=== PATIENT | male | born 1940 | race American Indian/Alaskan Native ===

== ENCOUNTER 2017-10-11 14:28 | Inpatient (IN) | payer MEDICARE, BC ==
[2017-10-11 16:14] LABS: BASO # 0.1 K/uL (0.0-0.2); BASO % 1.2 % (0.0-2.0); EOS # 0.2 K/uL (0.0-0.7); HEMOGLOBIN 9.3 g/dL (12.0-18.0); LYMPH # 1.1 K/uL (1.0-4.3); LYMPH % 14.1 % (20.0-40.0); MEAN CELL VOLUME 82.1 fL (80.0-94.0); MEAN CORPUSCULAR HEMOGLOBIN 27.1 pg (27.0-31.0); MEAN PLATELET VOLUME 7.6 fL (7.2-11.7); MONO # 0.6 K/uL (0.0-0.8); MONO % 7.5 % (0.0-10.0); NEUT # 6.1 K/uL (1.8-7.0); NEUT % 74.2 % (50.0-75.0); RBC 3.42 Mil/uL (4.40-5.90); RED CELL DISTRIBUTION WIDTH 13.7 % (11.5-14.5); WHITE BLOOD COUNT 8.2 K/uL (4.8-10.8)
[2017-10-11 16:25] LABS: ALB/GLOB RATIO 0.8 (1.0-2.1); ALBUMIN 3.4 g/dL (3.5-5.0); CALCIUM 8.4 mg/dl (8.6-10.4)
[2017-10-11] MEDS ORDERED: (Novolin R) Insulin Human Regular 100 units/ml vial IV ONE (16:27)
[2017-10-11] MEDS ORDERED: Aspirin 325 mg EC Tablets PO STA (16:31)
--- NOTE | 2017-10-11 16:33 | RAD ---
PROCEDURE: CHEST RADIOGRAPH, 1 VIEW HISTORY: Shortness of breath COMPARISON: 07/17/2017. FINDINGS: LUNGS: The lungs are well inflated. There is confluent airspace disease in the right lower lobe. PLEURA: No pneumothorax. Small pleural effusions, larger on the right. CARDIOVASCULAR: There is mild cardiomegaly. There is mild pulmonary venous congestion OSSEOUS STRUCTURES: No significant abnormalities. VISUALIZED UPPER ABDOMEN: Normal. OTHER FINDINGS: None. IMPRESSION: Findings may represent right lower lobe pneumonia and small right pleural effusion. Background of mild congestive heart failure.
--- NOTE | 2017-10-11 16:37 | C.PDOC ---
History Of Present Illness 77 y/o male, w/PMhx of Diabetes and HTN, presents to the ER complaining of SOB which has become progressively worse. Patient states that the SOB has progressed so much that he has to shuffle his feet to walk now. Patient denies having other complaints at this time. Time Seen by Provider: 10/11/17 15:32 Chief Complaint (Nursing): Shortness Of Breath History Per: Patient History/Exam Limitations: no limitations Onset/Duration Of Symptoms: Days Current Symptoms Are (Timing): Still Present Severity: Moderate Past Medical History Reviewed: Historical Data, Nursing Documentation, Vital Signs Vital Signs: Last Vital Signs Temp 98.0 F 10/11/17 14:39 Pulse 55 L 10/11/17 20:02 Resp 20 10/11/17 20:02 BP 162/89 H 10/11/17 20:02 Pulse Ox 96 10/11/17 20:02 - Medical History PMH: CHF, HTN, Hypercholesterolemia Surgical History: No Surg Hx - [facility] Procedures ENDOSC POLYPECTOMY OF LG INTEST (02/15/99) ESOPHAGOGASTRODUODENOSCOPY [EGD] W/CLOSED BIOPSY (02/15/99) Family History: States: No Known Family Hx - Social History Hx Alcohol Use: No Hx Substance Use: No - Immunization History Hx Tetanus Toxoid Vaccination: No Hx Influenza Vaccination: No Hx Pneumococcal Vaccination: No Review Of Systems Except As Marked, All Systems Reviewed And Found Negative. Constitutional: Negative for: Fever, Chills Respiratory: Positive for: Shortness of Breath Physical Exam - Physical Exam Appears: Non-toxic, No Acute Distress Skin: Normal Color, Warm, Dry Head: Atraumatic, Normacephalic Eye(s): bilateral: Normal Inspection Nose: Normal Oral Mucosa: Moist Neck: Supple Chest: Symmetrical Cardiovascular: Rhythm Regular Respiratory: Decreased Breath Sounds (bilaterally), No Rales, No Rhonchi, No Wheezing Gastrointestinal/Abdominal: Normal Exam, Bowel Sounds ((+) bowel sounds), Soft, No Tenderness, No Guarding, No Rebound Extremity: Normal ROM, Other (+3 lower extremity edema) Neurological/Psych: Oriented x3, Normal Speech ED Course And Treatment - Laboratory Results Result Diagrams: 10/11/17 16:10 10/11/17 16:10 ECG: Interpreted By Me, Viewed By Me ECG Rhythm: Atrial Fibrillation (rate control) Interpretation Of ECG: Atrial Fibrillation with non-specific T -wave changes, normal intervals, and normal axises Rate From EC O2 Sat by Pulse Oximetry: 100 (RA) Pulse Ox Interpretation: Normal - Other Rad CXR X-Ray: Viewed By Me, Read By Radiologist Interpretation: PROCEDURE: CHEST RADIOGRAPH, 1 VIEW. HISTORY: Shortness of breath. COMPARISON: 07/17/2017. FINDINGS: LUNGS: The lungs are well inflated. There is confluent airspace disease in the right lower lobe. PLEURA : No pneumothorax. Small pleural effusions, larger on the right. CARDIOVASCULAR: There is mild cardiomegaly. There is mild pulmonary venous congestion. OSSEOUS STRUCTURES: No significant abnormalities. VISUALIZED UPPER ABDOMEN: Normal. OTHER FINDINGS: None. IMPRESSION: Findings may represent right lower lobe pneumonia and small right pleural effusion. Background of mild congestive heart failure. Medical Decision Making Medical Decision Making: Assessment: SOB Plan: --Labs --ECG --CXR --Aspirin PO --Lasix IV --Insulin IV Disposition Discussed With Dr.: Scooter Romero Doctor Will See Patient In The: Hospital Counseled Patient/Family Regarding: Studies Performed, Diagnosis - Disposition Disposition: HOSPITALIZED Disposition Time: 16:37 Condition: FAIR - Clinical Impression Clinical Impression: CHF (congestive heart failure) - Scribe Statement The provider has reviewed the documentation as recorded by the Gersonibdung Diaz Provider Attestation: All medical record entries made by the Scribe were at my direction and personally dictated by me. I have reviewed the chart and agree that the record accurately reflects my personal performance of the history, physical exam, medical decision making, and the department course for this patient. I have also personally directed, reviewed, and agree with the discharge instructions and disposition.
[2017-10-11 16:39] LABS: TROPONIN I 0.035 ng/mL (0.00-0.120)
[2017-10-11] MEDS ORDERED: (Novolin R) Insulin Human Regular 100 units/ml vial ONE (16:42)
[2017-10-11] MEDS ORDERED: Aspirin 325 mg EC Tablets PO ONE (16:42)
--- NOTE | 2017-10-11 19:16 | CP.PCM.HP ---
Past Patient History - Past Social History Smoking Status: Never Smoked - CARDIAC Hx Congestive Heart Failure: Yes Hx Hypercholesterolemia: Yes Hx Hypertension: Yes - ENDOCRINE/METABOLIC Hx Diabetes Mellitus Type 2: Yes - GENITOURINARY/GYNECOLOGICAL Hx Prostate Cancer: Yes - PSYCHIATRIC Hx Substance Use: No - SURGICAL HISTORY Other/Comment: prostate cancer - ANESTHESIA Hx Anesthesia: Yes Meds Allergies/Adverse Reactions: Allergies Allergy/AdvReac Type Severity Reaction Status Date / Time No Known Allergies Allergy Unverified 10/11/17 14:43 Physical Exam - Constitutional Appears: Well - Head Exam Head Exam: ATRAUMATIC, NORMAL INSPECTION, NORMOCEPHALIC - Eye Exam Eye Exam: EOMI, Normal appearance, PERRL Pupil Exam: NORMAL ACCOMODATION, PERRL - ENT Exam ENT Exam: Mucous Membranes Moist, Normal Exam - Neck Exam Neck exam: Positive for: Normal Inspection - Respiratory Exam Respiratory Exam: Decreased Breath Sounds - Cardiovascular Exam Cardiovascular Exam: REGULAR RHYTHM, +S1, +S2 - GI/Abdominal Exam GI & Abdominal Exam: Diminished Bowel Sounds, Soft - Rectal Exam Rectal Exam: Deferred Results - Vital Signs Recent Vital Signs: Last Vital Signs Temp 98.0 F 10/11/17 14:39 Pulse 68 10/11/17 18:40 Resp 20 10/11/17 18:40 BP 166/86 H 10/11/17 18:40 Pulse Ox 100 10/11/17 18:40 - Labs Result Diagrams: 10/11/17 16:10 10/11/17 16:10 Labs: Laboratory Results - last 24 hr 10/11/17 10/11/17 10/11/17 16:10 16:10 18:44 WBC 8.2 RBC 3.42 L Hgb 9.3 L Hct 28.1 L MCV 82.1 MCH 27.1 MCHC 33.0 RDW 13.7 Plt Count 314 MPV 7.6 Neut % (Auto) 74.2 Lymph % (Auto) 14.1 L [place] % (Auto) 7.5 Eos % (Auto) 3.0 Baso % (Auto) 1.2 Neut # (Auto) 6.1 Lymph # (Auto) 1.1 [place] # (Auto) 0.6 Eos # (Auto) 0.2 Baso # (Auto) 0.1 Sodium 141 Potassium 4.7 Chloride 107 Carbon Dioxide 21 L Anion Gap 19 BUN 30 H Creatinine 3.1 H Est GFR ( Amer) 24 Est GFR (Non-Af Amer) 20 POC Glucose (mg/dL) 184 H Random Glucose 363 H Calcium 8.4 L Total Bilirubin 0.6 AST 32 ALT 33 Alkaline Phosphatase 199 H Troponin I 0.0350 NT-Pro-B Natriuret Pep 2980 H Total Protein 7.4 Albumin 3.4 L Globulin 4.0 H Albumin/Globulin Ratio 0.8 L
[2017-10-12] MEDS: Albuterol-Ipratrop 3 mg / 0.5 (3 ml) UD INH SCH ×4 (01:56→19:15)
[2017-10-12 02:00] LABS: CK-MB 1.4 ng/mL (0.0-3.38); TROPONIN I 0.051 ng/mL (0.00-0.120)
[2017-10-12 07:43] LABS: CK-MB 1.69 ng/mL (0.0-3.38); TROPONIN I 0.048 ng/mL (0.00-0.120)
[2017-10-12] MEDS: Pantoprazole 40 mg EC Tab PO SCH (09:58)
[2017-10-12] MEDS: Enoxaparin 30 mg Syringe SC SCH (09:58)
[2017-10-12] MEDS: Aspirin 325 mg EC Tablets PO SCH (09:59)
[2017-10-12] MEDS ORDERED: Enoxaparin 40 mg Syringe SC SCH (10:00)
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
[2017-10-12] MEDS: (Novolog) Insulin Aspart, Recombinant 100 u/ml 10 ml vial SC SCH ×2 (17:26→21:27)
[2017-10-12] MEDS ORDERED: INSULIN LISPRO 10 UNIT SC SCH (18:00)
--- NOTE | 2017-10-12 19:33 | CP.PCM.PN ---
Subjective - Date & Time of Evaluation Date of Evaluation: 10/12/17 Time of Evaluation: 10:00 - Subjective Subjective: clinically same Objective - Vital Signs/Intake and Output Vital Signs (last 24 hours): Temp Pulse Resp BP Pulse Ox 97.4 F L 69 20 176/69 H 99 10/12/17 15:39 10/12/17 16:00 10/12/17 15:39 10/12/17 15:39 10/12/17 15:39 Intake and Output: 10/12/17 10/13/17 18:59 06:59 Intake Total 300 Output Total 600 Balance -300 - Medications Medications: Current Medications Albuterol/Ipratropium (Duoneb 3 Mg/0.5 Mg (3 Ml) Ud) 3 ml INH RQ6 [facility] Last Admin: 10/12/17 19:15 Dose: 3 ml Amlodipine Besylate (Norvasc) 10 mg PO DAILY [facility] Last Admin: 10/12/17 13:42 Dose: 10 mg Aspirin (Ecotrin) 325 mg PO DAILY [facility] Last Admin: 10/12/17 09:59 Dose: 325 mg Calcitriol (Rocaltrol) 0.25 mcg PO DAILY [facility] Last Admin: 10/12/17 13:42 Dose: 0.25 mcg Enoxaparin Sodium (Lovenox) 30 mg SC DAILY [facility] Last Admin: 10/12/17 09:58 Dose: 30 mg Furosemide (Lasix) 40 mg IVP DAILY [facility] Last Admin: 10/12/17 09:58 Dose: 40 mg Glimepiride (Amaryl) 4 mg PO BID [facility] Last Admin: 10/12/17 17:27 Dose: 4 mg Insulin Aspart (Novolog) 0 unit SC [facility] PRN Reason: Protocol Last Admin: 10/12/17 17:26 Dose: 6 unit Metoprolol Tartrate (Lopressor) 50 mg PO DAILY [facility] Last Admin: 10/12/17 13:42 Dose: 50 mg Pantoprazole Sodium (Protonix Ec Tab) 40 mg PO DAILY [facility] Last Admin: 10/12/17 09:58 Dose: 40 mg Rosuvastatin Calcium (Crestor) 10 mg PO [facility] Tamsulosin HCl (Flomax) 0.4 mg PO DAILY [facility] Last Admin: 10/12/17 13:42 Dose: 0.4 mg - Labs Labs: 10/11/17 16:10 10/11/17 16:10 - Constitutional Appears: Well - Head Exam Head Exam: ATRAUMATIC, NORMAL INSPECTION, NORMOCEPHALIC - Eye Exam Eye Exam: EOMI, Normal appearance, PERRL Pupil Exam: NORMAL ACCOMODATION, PERRL - ENT Exam ENT Exam: Mucous Membranes Moist, Normal Exam - Neck Exam Neck Exam: Full ROM, Normal Inspection. absent: Lymphadenopathy - Respiratory Exam Respiratory Exam: Decreased Breath Sounds - Cardiovascular Exam Cardiovascular Exam: REGULAR RHYTHM, +S1, +S2 - GI/Abdominal Exam GI & Abdominal Exam: Soft, Diminished Bowel Sounds - Rectal Exam Rectal Exam: Deferred
[2017-10-13] MEDS: Albuterol-Ipratrop 3 mg / 0.5 (3 ml) UD INH SCH ×4 (01:37→20:02)
[2017-10-13 06:58] LABS: CK-MB 2.96 ng/mL (0.0-3.38); TROPONIN I 0.027 ng/mL (0.00-0.120)
[2017-10-13] MEDS: (Novolog) Insulin Aspart, Recombinant 100 u/ml 10 ml vial SC SCH ×4 (08:11→21:24)
[2017-10-13] MEDS: Aspirin 325 mg EC Tablets PO SCH (09:27)
[2017-10-13] MEDS: Pantoprazole 40 mg EC Tab PO SCH (09:28)
[2017-10-13] MEDS: Enoxaparin 30 mg Syringe SC SCH (09:28)
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
--- NOTE | 2017-10-13 15:28 | CARD ---
APPROVED REPORT EXAM: Two-dimensional and M-mode echocardiogram with Doppler and color Doppler. Other Information Quality : AverageRhythm : Atrial Fibrillation INDICATION Congestive Heart Failure RISK FACTORS Hypertension Hyperlipidemia 2D DIMENSIONS Aortic Root (2D)2.6 (2.0-3.7cm)LVOT Diameter1.9 (1.8-2.4cm) M-Mode DIMENSIONS RVDd1.64 (2.1-3.2cm)Left Atrium (MM)4.84 (2.5-4.0cm) IVSd1.13 (0.7-1.1cm)Aortic Root2.66 (2.2-3.7cm) LVDd5.47 (4.0-5.6cm)Aortic Cusp Exc.2.03 (1.5-2.0cm) PWd1.05 (0.7-1.1cm)FS (%) 35 % LVDs3.55 (2.0-3.8cm)LVEF (%)64 (>50%) Aortic Valve AoV Peak Ydkbtlxn939.3cm/sAoV VTI43.8cmAO Peak GR.14mmHg LVOT Peak Tucqrnlw755.9cm/sLVOT VTI25.31cmAO Mean GR.7mmHg NOA (VMAX)1.56ly7WHB (VTI)1.58cm2 Mitral Valve MV E Pqmofcax18.1cm/sMV A Tcdqrvzp84.3cm/sE/A ratio0.6 TDI E/Lateral E'0.0E/Medial E'0.0 Tricuspid Valve TR Peak Yrlemdsv461oa/sTR Peak Gr.39laApBDKT88ryGu <Conclusion> tds. poor window. la is moderately dilated. normal size lv.mild concnetric lvh with normal lv systolic funciton & lvef of 60-65%. lv diastolic dysfunction grade one. sclerotic aortic & mitral lealflets. trace mr,tr. sclerotic normal size aortic root. no pericrdial effusion.
--- NOTE | 2017-10-13 19:29 | CP.PCM.PN ---
Subjective - Date & Time of Evaluation Date of Evaluation: 10/13/17 Time of Evaluation: 09:40 - Subjective Subjective: clinically same Objective - Vital Signs/Intake and Output Vital Signs (last 24 hours): Temp Pulse Resp BP Pulse Ox 97.9 F 60 20 152/68 H 98 10/13/17 15:49 10/13/17 15:49 10/13/17 15:49 10/13/17 15:49 10/13/17 15:49 Intake and Output: 10/13/17 10/14/17 18:59 06:59 Intake Total 250 Output Total 150 Balance 100 - Medications Medications: Current Medications Albuterol/Ipratropium (Duoneb 3 Mg/0.5 Mg (3 Ml) Ud) 3 ml INH RQ6 [facility] Last Admin: 10/13/17 13:48 Dose: 3 ml Amlodipine Besylate (Norvasc) 10 mg PO DAILY [facility] Last Admin: 10/13/17 09:28 Dose: 10 mg Aspirin (Ecotrin) 325 mg PO DAILY [facility] Last Admin: 10/13/17 09:27 Dose: 325 mg Calcitriol (Rocaltrol) 0.25 mcg PO DAILY [facility] Last Admin: 10/13/17 09:28 Dose: 0.25 mcg Enoxaparin Sodium (Lovenox) 30 mg SC DAILY [facility] Last Admin: 10/13/17 09:28 Dose: 30 mg Furosemide (Lasix) 40 mg IVP DAILY [facility] Last Admin: 10/13/17 09:28 Dose: 40 mg Glimepiride (Amaryl) 4 mg PO BID [facility] Last Admin: 10/13/17 17:47 Dose: 4 mg Insulin Aspart (Novolog) 0 unit SC [facility] PRN Reason: Protocol Last Admin: 10/13/17 17:47 Dose: 2 unit Metoprolol Tartrate (Lopressor) 50 mg PO DAILY [facility] Last Admin: 10/13/17 09:28 Dose: 50 mg Pantoprazole Sodium (Protonix Ec Tab) 40 mg PO DAILY [facility] Last Admin: 10/13/17 09:28 Dose: 40 mg Rosuvastatin Calcium (Crestor) 10 mg PO HS [facility] Last Admin: 10/12/17 21:27 Dose: 10 mg Tamsulosin HCl (Flomax) 0.4 mg PO DAILY [facility] Last Admin: 10/13/17 09:27 Dose: 0.4 mg - Labs Labs: 10/11/17 16:10 10/11/17 16:10 - Constitutional Appears: Well - Head Exam Head Exam: ATRAUMATIC, NORMAL INSPECTION, NORMOCEPHALIC - Eye Exam Eye Exam: EOMI, Normal appearance, PERRL Pupil Exam: NORMAL ACCOMODATION, PERRL - ENT Exam ENT Exam: Mucous Membranes Moist, Normal Exam - Neck Exam Neck Exam: Full ROM, Normal Inspection. absent: Lymphadenopathy - Respiratory Exam Respiratory Exam: Decreased Breath Sounds - Cardiovascular Exam Cardiovascular Exam: REGULAR RHYTHM, +S1, +S2 - GI/Abdominal Exam GI & Abdominal Exam: Soft, Diminished Bowel Sounds - Rectal Exam Rectal Exam: Deferred
[2017-10-14] MEDS: Albuterol-Ipratrop 3 mg / 0.5 (3 ml) UD INH SCH ×4 (01:12→20:10)
[2017-10-14] MEDS: (Novolog) Insulin Aspart, Recombinant 100 u/ml 10 ml vial SC SCH ×4 (07:34→21:58)
[2017-10-14 08:13] LABS: CK-MB 2.16 ng/mL (0.0-3.38); TROPONIN I 0.031 ng/mL (0.00-0.120)
--- NOTE | 2017-10-14 08:36 | CP.PCM.PN ---
Subjective - Date & Time of Evaluation Date of Evaluation: 10/14/17 Time of Evaluation: 08:25 - Subjective Subjective: patient has less dyspnea Objective - Vital Signs/Intake and Output Vital Signs (last 24 hours): Temp Pulse Resp BP Pulse Ox 98.4 F 87 20 171/82 H 96 10/14/17 08:11 10/14/17 08:11 10/14/17 08:11 10/14/17 08:11 10/14/17 08:11 Intake and Output: 10/14/17 10/14/17 06:59 18:59 Intake Total 240 Output Total 400 Balance -160 - Medications Medications: Current Medications Albuterol/Ipratropium (Duoneb 3 Mg/0.5 Mg (3 Ml) Ud) 3 ml INH RQ6 [facility] Last Admin: 10/14/17 07:45 Dose: 3 ml Amlodipine Besylate (Norvasc) 10 mg PO DAILY [facility] Last Admin: 10/13/17 09:28 Dose: 10 mg Aspirin (Ecotrin) 325 mg PO DAILY [facility] Last Admin: 10/13/17 09:27 Dose: 325 mg Calcitriol (Rocaltrol) 0.25 mcg PO DAILY [facility] Last Admin: 10/13/17 09:28 Dose: 0.25 mcg Enoxaparin Sodium (Lovenox) 30 mg SC DAILY [facility] Last Admin: 10/13/17 09:28 Dose: 30 mg Furosemide (Lasix) 40 mg IVP DAILY [facility] Last Admin: 10/13/17 09:28 Dose: 40 mg Glimepiride (Amaryl) 4 mg PO BID [facility] Last Admin: 10/13/17 17:47 Dose: 4 mg Insulin Aspart (Novolog) [address] [facility] PRN Reason: Protocol Last Admin: 10/14/17 07:34 Dose: Not Given Metoprolol Tartrate (Lopressor) 50 mg PO DAILY [facility] Last Admin: 10/13/17 09:28 Dose: 50 mg Pantoprazole Sodium (Protonix Ec Tab) 40 mg PO DAILY [facility] Last Admin: 10/13/17 09:28 Dose: 40 mg Rosuvastatin Calcium (Crestor) 10 mg PO HS [facility] Last Admin: 10/13/17 21:23 Dose: 10 mg Tamsulosin HCl (Flomax) 0.4 mg PO DAILY [facility] Last Admin: 10/13/17 09:27 Dose: 0.4 mg - Labs Labs: 10/11/17 16:10 10/11/17 16:10 - Constitutional Appears: Non-toxic - Head Exam Head Exam: NORMAL INSPECTION - Eye Exam Eye Exam: Normal appearance - ENT Exam ENT Exam: Mucous Membranes Moist - Neck Exam Neck Exam: Normal Inspection - Respiratory Exam Respiratory Exam: NORMAL BREATHING PATTERN - Cardiovascular Exam Cardiovascular Exam: REGULAR RHYTHM - GI/Abdominal Exam GI & Abdominal Exam: Normal Bowel Sounds - Rectal Exam Rectal Exam: Deferred - Extremities Exam Extremities Exam: Pedal Edema - Back Exam Back Exam: NORMAL INSPECTION - Neurological Exam Neurological Exam: Alert - Psychiatric Exam Psychiatric exam: Normal Affect - Skin Skin Exam: Normal Color Assessment and Plan (1) CHF (congestive heart failure) Assessment & Plan: patient likely has acute on chronic diastolic dysfunction. I recommend addition of clonidine. added Imdur Status: Acute
[2017-10-14] MEDS: Aspirin 325 mg EC Tablets PO SCH (09:23)
[2017-10-14] MEDS: Pantoprazole 40 mg EC Tab PO SCH (09:24)
[2017-10-14] MEDS: Enoxaparin 30 mg Syringe SC SCH (09:24)
--- NOTE | 2017-10-14 16:32 | CP.PCM.PN ---
Subjective - Date & Time of Evaluation Date of Evaluation: 10/14/17 Time of Evaluation: 10:00 - Subjective Subjective: clinically same Objective - Vital Signs/Intake and Output Vital Signs (last 24 hours): Temp Pulse Resp BP Pulse Ox 98.4 F 87 20 171/82 H 96 10/14/17 08:11 10/14/17 08:11 10/14/17 08:11 10/14/17 09:23 10/14/17 08:11 Intake and Output: 10/14/17 10/14/17 06:59 18:59 Intake Total 240 400 Output Total 400 500 Balance -160 -100 - Medications Medications: Current Medications Albuterol/Ipratropium (Duoneb 3 Mg/0.5 Mg (3 Ml) Ud) 3 ml INH RQ6 [facility] Last Admin: 10/14/17 13:37 Dose: 3 ml Amlodipine Besylate (Norvasc) 10 mg PO DAILY [facility] Last Admin: 10/14/17 09:24 Dose: 10 mg Aspirin (Ecotrin) 325 mg PO DAILY [facility] Last Admin: 10/14/17 09:23 Dose: 325 mg Calcitriol (Rocaltrol) 0.25 mcg PO DAILY [facility] Last Admin: 10/14/17 09:24 Dose: 0.25 mcg Clonidine HCl (Catapres) 0.1 mg PO BID [facility] Last Admin: 10/14/17 09:23 Dose: 0.1 mg Enoxaparin Sodium (Lovenox) 30 mg SC DAILY [facility] Last Admin: 10/14/17 09:24 Dose: 30 mg Furosemide (Lasix) 40 mg IVP DAILY [facility] Last Admin: 10/14/17 09:23 Dose: 40 mg Glimepiride (Amaryl) 4 mg PO BID [facility] Last Admin: 10/14/17 09:23 Dose: 4 mg Insulin Aspart (Novolog) 0 unit SC [facility] PRN Reason: Protocol Last Admin: 10/14/17 12:30 Dose: 6 unit Isosorbide Mononitrate (Imdur Er) 90 mg PO DAILY [facility] Last Admin: 10/14/17 12:00 Dose: 90 mg Metoprolol Tartrate (Lopressor) 50 mg PO DAILY [facility] Last Admin: 10/14/17 09:24 Dose: 50 mg Pantoprazole Sodium (Protonix Ec Tab) 40 mg PO DAILY [facility] Last Admin: 10/14/17 09:24 Dose: 40 mg Rosuvastatin Calcium (Crestor) 10 mg PO HS [facility] Last Admin: 10/13/17 21:23 Dose: 10 mg Tamsulosin HCl (Flomax) 0.4 mg PO DAILY [facility] Last Admin: 10/14/17 09:23 Dose: 0.4 mg - Labs Labs: 10/11/17 16:10 10/11/17 16:10 - Constitutional Appears: Well - Head Exam Head Exam: ATRAUMATIC, NORMAL INSPECTION, NORMOCEPHALIC - Eye Exam Eye Exam: EOMI, Normal appearance, PERRL Pupil Exam: NORMAL ACCOMODATION, PERRL - ENT Exam ENT Exam: Mucous Membranes Moist, Normal Exam - Neck Exam Neck Exam: Full ROM, Normal Inspection. absent: Lymphadenopathy - Respiratory Exam Respiratory Exam: Decreased Breath Sounds - Cardiovascular Exam Cardiovascular Exam: REGULAR RHYTHM, +S1, +S2 - GI/Abdominal Exam GI & Abdominal Exam: Soft, Diminished Bowel Sounds - Rectal Exam Rectal Exam: Deferred
[2017-10-15] MEDS: Albuterol-Ipratrop 3 mg / 0.5 (3 ml) UD INH SCH ×4 (06:43→19:40)
[2017-10-15] MEDS: (Novolog) Insulin Aspart, Recombinant 100 u/ml 10 ml vial SC SCH ×4 (08:48→22:09)
[2017-10-15] MEDS: Pantoprazole 40 mg EC Tab PO SCH (10:44)
[2017-10-15] MEDS: Aspirin 325 mg EC Tablets PO SCH (10:44)
[2017-10-15] MEDS: Enoxaparin 30 mg Syringe SC SCH (10:45)
--- NOTE | 2017-10-15 11:31 | CP.PCM.PN ---
Subjective - Date & Time of Evaluation Date of Evaluation: 10/15/17 Time of Evaluation: 08:00 - Subjective Subjective: PGY2 Resident - Medicine Progress Note Patient seen and examined at bedside. No acute distress. No overnight events. Patient c/o dry cough for several days. He is AAOx2. His last BM yesterday morning. He reports mild chest tightness and mild SOB. He reports his LE swelling has improved greatly and overall he feels better since being admitted. 12-point review of systems is otherwise negative without any additional acute complaints. Objective - Vital Signs/Intake and Output Vital Signs (last 24 hours): Temp Pulse Resp BP Pulse Ox 98.3 F 80 18 141/84 96 10/15/17 07:30 10/15/17 07:44 10/15/17 07:30 10/15/17 10:44 10/15/17 07:30 Intake and Output: 10/15/17 10/15/17 06:59 18:59 Intake Total 120 Output Total 200 Balance -80 - Medications Medications: Current Medications Albuterol/Ipratropium (Duoneb 3 Mg/0.5 Mg (3 Ml) Ud) 3 ml INH RQ6 [facility] Last Admin: 10/15/17 07:44 Dose: 3 ml Amlodipine Besylate (Norvasc) 10 mg PO DAILY [facility] Last Admin: 10/15/17 10:44 Dose: 10 mg Aspirin (Ecotrin) 325 mg PO DAILY [facility] Last Admin: 10/15/17 10:44 Dose: 325 mg Calcitriol (Rocaltrol) 0.25 mcg PO DAILY [facility] Last Admin: 10/15/17 10:44 Dose: 0.25 mcg Clonidine HCl (Catapres) 0.1 mg PO BID [facility] Last Admin: 10/15/17 10:44 Dose: 0.1 mg Enoxaparin Sodium (Lovenox) 30 mg SC DAILY [facility] Last Admin: 10/15/17 10:45 Dose: 30 mg Furosemide (Lasix) 40 mg IVP DAILY [facility] Last Admin: 10/15/17 10:44 Dose: 40 mg Glimepiride (Amaryl) 4 mg PO BID [facility] Last Admin: 10/15/17 10:44 Dose: 4 mg Insulin Aspart (Novolog) 0 unit SC [facility] PRN Reason: Protocol Last Admin: 10/15/17 08:48 Dose: 2 unit Isosorbide Mononitrate (Imdur Er) 90 mg PO DAILY [facility] Last Admin: 10/15/17 10:44 Dose: 90 mg Metoprolol Tartrate (Lopressor) 50 mg PO DAILY [facility] Last Admin: 10/15/17 10:44 Dose: 50 mg Pantoprazole Sodium (Protonix Ec Tab) 40 mg PO DAILY [facility] Last Admin: 10/15/17 10:44 Dose: 40 mg Rosuvastatin Calcium (Crestor) 10 mg PO HS [facility] Last Admin: 10/14/17 21:07 Dose: 10 mg Tamsulosin HCl (Flomax) 0.4 mg PO DAILY [facility] Last Admin: 10/15/17 10:44 Dose: 0.4 mg - Labs Labs: 10/11/17 16:10 10/11/17 16:10 - Additional Findings Additional findings: - Constitutional Appears: Non-toxic - Head Exam Head Exam: NORMAL INSPECTION - Eye Exam Eye Exam: Normal appearance - ENT Exam ENT Exam: Mucous Membranes Moist - Neck Exam Neck Exam: Normal Inspection - Respiratory Exam Respiratory Exam: NORMAL BREATHING PATTERN, Decreased Breath Sounds, Rales (RLL , mild); absent: Wheezes, Rhonchi - Cardiovascular Exam Cardiovascular Exam: REGULAR RHYTHM, S1, S2 - GI/Abdominal Exam GI & Abdominal Exam: Normal Bowel Sounds, Non-Distended - Extremities Exam Extremities Exam: Pedal Edema (2+ pitting, improving) - Neurological Exam Neurological Exam: Alert (AAOx2) - Psychiatric Exam Psychiatric exam: Normal Affect, Normal Mood - Skin Skin Exam: Normal Color Assessment and Plan - Assessment and Plan (Free Text) Assessment: Acute on Chronic CHF (congestive heart failure) 10/15: Continue current medications. Cardio consult, Dr. Valdez, f/u recs likely chronic diastolic dysfunction -> recommend addition of clonidine. added Imdur BNP 2980 Catapres) 0.1 mg PO BID [facility] Lasix) 40 mg IVP DAILY [facility] Imdur Er) 90 mg PO DAILY [facility] Lopressor) 50 mg PO DAILY [facility] Cough 10/15: portable CXR with small b/l pleural effusion. likely due to volume status. improving Abx not needed at this time. May add on Azithromycin 500mg IVPB if warranted. likely 2/2 CHF fluid overload CXR 10/11 with RL PNA an mild CHF. Patient afebrile, WBC WNL f/u portable CXR to r/o PNA vs CHF fluid overload Hypertension monitor BP Norvasc) 10 mg PO DAILY [facility] Diabetes Novolog) 0 unit SC ACHS [facility] Hyperlipidemia Crestor) 10 mg PO HS [facility] Prophylaxis Lovenox) 30 mg SC DAILY [facility] Protonix Ec Tab) 40 mg PO DAILY [facility] Rocaltrol) 0.25 mcg PO DAILY [facility] Case discussed with attending. All medical management as per Dr. Nixon Romero.
--- NOTE | 2017-10-15 12:15 | RAD ---
HISTORY: cough, possible RLL PNA COMPARISON: 10/11/2017 FINDINGS: LUNGS: All patchy opacity at right base. Possible pneumonia. Essentially unchanged. No active pulmonary disease. PLEURA: Possible bilateral small pleural effusion. No pneumothorax. CARDIOVASCULAR: Normal. OSSEOUS STRUCTURES: No significant abnormalities. VISUALIZED UPPER ABDOMEN: Normal. OTHER FINDINGS: None. IMPRESSION: Small bilateral pleural effusion. Possible right basilar infiltrate.
[2017-10-15 14:04] LABS: BASO # 0.1 K/uL (0.0-0.2); EOS # 0.3 K/uL (0.0-0.7); EOS % 4.1 % (0.0-4.0); LYMPH # 1.3 K/uL (1.0-4.3); LYMPH % 19.2 % (20.0-40.0); MEAN CELL VOLUME 81.8 fL (80.0-94.0); MEAN CORPUSCULAR HEMOGLOBIN 27.6 pg (27.0-31.0); MEAN CORPUSCULAR HGB CONC 33.7 g/dL (33.0-37.0); MEAN PLATELET VOLUME 7.3 fL (7.2-11.7); MONO # 0.7 K/uL (0.0-0.8); MONO % 10.2 % (0.0-10.0); NEUT # 4.5 K/uL (1.8-7.0); NEUT % 65.5 % (50.0-75.0); NRBC % 0.1 % (0.0-2.0); RBC 2.91 Mil/uL (4.40-5.90); RED CELL DISTRIBUTION WIDTH 13.6 % (11.5-14.5); WHITE BLOOD COUNT 6.8 K/uL (4.8-10.8)
[2017-10-15 14:48] LABS: ALB/GLOB RATIO 0.9 (1.0-2.1); CALCIUM 8.1 mg/dl (8.6-10.4)
--- NOTE | 2017-10-15 15:45 | CP.PCM.PN ---
Subjective - Date & Time of Evaluation Date of Evaluation: 10/15/17 Time of Evaluation: 15:45 Objective - Vital Signs/Intake and Output Vital Signs (last 24 hours): Temp Pulse Resp BP Pulse Ox 98.3 F 58 L 18 141/84 96 10/15/17 07:30 10/15/17 12:18 10/15/17 07:30 10/15/17 10:44 10/15/17 07:30 Intake and Output: 10/15/17 10/15/17 06:59 18:59 Intake Total 120 500 Output Total 200 1200 Balance -80 -700 - Medications Medications: Current Medications Albuterol/Ipratropium (Duoneb 3 Mg/0.5 Mg (3 Ml) Ud) 3 ml INH RQ6 [facility] Last Admin: 10/15/17 13:10 Dose: 3 ml Amlodipine Besylate (Norvasc) 10 mg PO DAILY [facility] Last Admin: 10/15/17 10:44 Dose: 10 mg Aspirin (Ecotrin) 325 mg PO DAILY [facility] Last Admin: 10/15/17 10:44 Dose: 325 mg Calcitriol (Rocaltrol) 0.25 mcg PO DAILY [facility] Last Admin: 10/15/17 10:44 Dose: 0.25 mcg Clonidine HCl (Catapres) 0.1 mg PO BID [facility] Last Admin: 10/15/17 10:44 Dose: 0.1 mg Enoxaparin Sodium (Lovenox) 30 mg SC DAILY [facility] Last Admin: 10/15/17 10:45 Dose: 30 mg Furosemide (Lasix) 40 mg IVP DAILY [facility] Last Admin: 10/15/17 10:44 Dose: 40 mg Glimepiride (Amaryl) 4 mg PO BID [facility] Last Admin: 10/15/17 10:44 Dose: 4 mg Insulin Aspart (Novolog) 0 unit SC [facility] PRN Reason: Protocol Last Admin: 10/15/17 12:39 Dose: 2 unit Isosorbide Mononitrate (Imdur Er) 90 mg PO DAILY [facility] Last Admin: 10/15/17 10:44 Dose: 90 mg Metoprolol Tartrate (Lopressor) 50 mg PO DAILY [facility] Last Admin: 10/15/17 10:44 Dose: 50 mg Pantoprazole Sodium (Protonix Ec Tab) 40 mg PO DAILY [facility] Last Admin: 05/07/18 10:44 Dose: 40 mg Rosuvastatin Calcium (Crestor) 10 mg PO [facility] Last Admin: 10/14/17 21:07 Dose: 10 mg Tamsulosin HCl (Flomax) 0.4 mg PO DAILY [facility] Last Admin: 10/15/17 10:44 Dose: 0.4 mg - Labs Labs: 10/15/17 13:56 10/15/17 13:56
--- NOTE | 2017-10-15 21:34 | CP.PCM.PN ---
Subjective - Date & Time of Evaluation Date of Evaluation: 10/15/17 Time of Evaluation: 10:00 - Subjective Subjective: clinically same Objective - Vital Signs/Intake and Output Vital Signs (last 24 hours): Temp Pulse Resp BP Pulse Ox 97.4 F L 63 20 144/76 100 10/15/17 15:35 10/15/17 15:35 10/15/17 15:35 10/15/17 15:35 10/15/17 15:35 Intake and Output: 10/15/17 10/16/17 18:59 06:59 Intake Total 500 Output Total 1200 Balance -700 - Medications Medications: Current Medications Albuterol/Ipratropium (Duoneb 3 Mg/0.5 Mg (3 Ml) Ud) 3 ml INH RQ6 [facility] Last Admin: 10/15/17 19:40 Dose: 3 ml Amlodipine Besylate (Norvasc) 10 mg PO DAILY [facility] Last Admin: 10/15/17 10:44 Dose: 10 mg Aspirin (Ecotrin) 325 mg PO DAILY [facility] Last Admin: 10/15/17 10:44 Dose: 325 mg Calcitriol (Rocaltrol) 0.25 mcg PO DAILY [facility] Last Admin: 10/15/17 10:44 Dose: 0.25 mcg Clonidine HCl (Catapres) 0.1 mg PO BID [facility] Last Admin: 10/15/17 17:15 Dose: 0.1 mg Enoxaparin Sodium (Lovenox) 30 mg SC DAILY [facility] Last Admin: 10/15/17 10:45 Dose: 30 mg Furosemide (Lasix) 40 mg IVP DAILY [facility] Last Admin: 10/15/17 10:44 Dose: 40 mg Glimepiride (Amaryl) 4 mg PO BID [facility] Last Admin: 10/15/17 17:15 Dose: 4 mg Insulin Aspart (Novolog) 0 unit SC [facility] PRN Reason: Protocol Last Admin: 10/15/17 17:15 Dose: 2 unit Isosorbide Mononitrate (Imdur Er) 90 mg PO DAILY [facility] Last Admin: 10/15/17 10:44 Dose: 90 mg Metoprolol Tartrate (Lopressor) 50 mg PO DAILY [facility] Last Admin: 10/15/17 10:44 Dose: 50 mg Pantoprazole Sodium (Protonix Ec Tab) 40 mg PO DAILY [facility] Last Admin: 10/15/17 10:44 Dose: 40 mg Rosuvastatin Calcium (Crestor) 10 mg PO HS [facility] Last Admin: 10/14/17 21:07 Dose: 10 mg Tamsulosin HCl (Flomax) 0.4 mg PO DAILY [facility] Last Admin: 10/15/17 10:44 Dose: 0.4 mg - Labs Labs: 10/15/17 13:56 10/15/17 13:56 - Constitutional Appears: Well - Head Exam Head Exam: ATRAUMATIC, NORMAL INSPECTION, NORMOCEPHALIC - Eye Exam Eye Exam: EOMI, Normal appearance, PERRL Pupil Exam: NORMAL ACCOMODATION, PERRL - ENT Exam ENT Exam: Mucous Membranes Moist, Normal Exam - Neck Exam Neck Exam: Full ROM, Normal Inspection. absent: Lymphadenopathy - Respiratory Exam Respiratory Exam: Decreased Breath Sounds - Cardiovascular Exam Cardiovascular Exam: REGULAR RHYTHM, +S1, +S2 - GI/Abdominal Exam GI & Abdominal Exam: Soft, Diminished Bowel Sounds - Rectal Exam Rectal Exam: Deferred
[2017-10-16] MEDS: Albuterol-Ipratrop 3 mg / 0.5 (3 ml) UD INH SCH ×4 (01:07→20:32)
[2017-10-16 07:18] LABS: BASO # 0.1 K/uL (0.0-0.2); BASO % 0.9 % (0.0-2.0); EOS # 0.3 K/uL (0.0-0.7); EOS % 4.8 % (0.0-4.0); LYMPH # 1.4 K/uL (1.0-4.3); MEAN CELL VOLUME 81.4 fL (80.0-94.0); MEAN CORPUSCULAR HEMOGLOBIN 26.9 pg (27.0-31.0); MEAN PLATELET VOLUME 7.7 fL (7.2-11.7); MONO # 0.6 K/uL (0.0-0.8); MONO % 9.2 % (0.0-10.0); NEUT # 4.2 K/uL (1.8-7.0); NEUT % 64.1 % (50.0-75.0); RBC 2.99 Mil/uL (4.40-5.90); RED CELL DISTRIBUTION WIDTH 13.9 % (11.5-14.5); WHITE BLOOD COUNT 6.6 K/uL (4.8-10.8)
[2017-10-16 07:40] LABS: ALB/GLOB RATIO 0.9 (1.0-2.1); CALCIUM 8.2 mg/dl (8.6-10.4)
--- NOTE | 2017-10-16 07:48 | CP.PCM.PN ---
<AnalissettGigi - Last Filed: 10/16/17 15:12> Subjective - Date & Time of Evaluation Date of Evaluation: 10/16/17 Time of Evaluation: 07:40 - Subjective Subjective: PGY2 Resident - Medicine Progress Note Patient seen and examined at bedside. No acute distress. No overnight events. Pt is AAOx2. His last BM was this morning. He admits his breathing has improved and his chest does not feel as tight. He also reports his LE swelling has improved greatly, however he continues to have 1+ pitting edema above the knee. 12-point review of systems is otherwise negative without any additional acute complaints. Objective - Vital Signs/Intake and Output Vital Signs (last 24 hours): Temp Pulse Resp BP Pulse Ox 97.7 F 84 20 131/68 98 10/15/17 23:50 10/15/17 23:50 10/15/17 23:50 10/15/17 23:50 10/15/17 23:50 Intake and Output: 10/16/17 10/16/17 06:59 18:59 Intake Total 180 Output Total 250 Balance -70 - Medications Medications: Current Medications Albuterol/Ipratropium (Duoneb 3 Mg/0.5 Mg (3 Ml) Ud) 3 ml INH RQ6 [facility] Last Admin: 10/16/17 01:07 Dose: Not Given Amlodipine Besylate (Norvasc) 10 mg PO DAILY [facility] Last Admin: 10/15/17 10:44 Dose: 10 mg Aspirin (Ecotrin) 325 mg PO DAILY [facility] Last Admin: 10/15/17 10:44 Dose: 325 mg Calcitriol (Rocaltrol) 0.25 mcg PO DAILY [facility] Last Admin: 10/15/17 10:44 Dose: 0.25 mcg Clonidine HCl (Catapres) 0.1 mg PO BID [facility] Last Admin: 10/15/17 17:15 Dose: 0.1 mg Enoxaparin Sodium (Lovenox) 30 mg SC DAILY [facility] Last Admin: 10/15/17 10:45 Dose: 30 mg Furosemide (Lasix) 40 mg IVP DAILY [facility] Last Admin: 10/15/17 10:44 Dose: 40 mg Glimepiride (Amaryl) 4 mg PO BID [facility] Last Admin: 10/15/17 17:15 Dose: 4 mg Insulin Aspart (Novolog) 0 unit SC [facility] PRN Reason: Protocol Last Admin: 10/15/17 22:09 Dose: Not Given Isosorbide Mononitrate (Imdur Er) 90 mg PO DAILY [facility] Last Admin: 10/15/17 10:44 Dose: 90 mg Metoprolol Tartrate (Lopressor) 50 mg PO DAILY [facility] Last Admin: 10/15/17 10:44 Dose: 50 mg Pantoprazole Sodium (Protonix Ec Tab) 40 mg PO DAILY [facility] Last Admin: 10/15/17 10:44 Dose: 40 mg Rosuvastatin Calcium (Crestor) 10 mg PO HS [facility] Last Admin: 10/15/17 22:14 Dose: 10 mg Tamsulosin HCl (Flomax) 0.4 mg PO DAILY [facility] Last Admin: 10/15/17 10:44 Dose: 0.4 mg - Labs Labs: 10/16/17 07:00 10/16/17 07:00 - Additional Findings Additional findings: - Constitutional Appears: Non-toxic - Head Exam Head Exam: NORMAL INSPECTION - Eye Exam Eye Exam: Normal appearance - ENT Exam ENT Exam: Mucous Membranes Moist - Neck Exam Neck Exam: Normal Inspection - Respiratory Exam Respiratory Exam: NORMAL BREATHING PATTERN, Decreased Breath Sounds. absent: Wheezes, Rhonchi, Rales - Cardiovascular Exam Cardiovascular Exam: REGULAR RHYTHM, S1, S2 - GI/Abdominal Exam GI & Abdominal Exam: Normal Bowel Sounds, Non-Distended - Extremities Exam Extremities Exam: Pedal Edema (1+ pitting edema, above the knee) - Neurological Exam Neurological Exam: Alert (AAOx2) - Psychiatric Exam Psychiatric exam: Normal Affect, Normal Mood - Skin Skin Exam: Normal Color Assessment and Plan - Assessment and Plan (Free Text) Assessment: Acute on Chronic CHF (congestive heart failure) 10/16: Breathing is improved. Continued LE edema (1+ pitting above knee), however improving. Recommendation of cardiology is to Stop Lasix as dyspnea improved ( likely due to diastolic dysfunction). 10/15: Continue current medications. Cardio consult, Dr. Valdez, f/u recs likely chronic diastolic dysfunction -> recommend addition of clonidine. added Imdur BNP 2980 Catapres) 0.1 mg PO BID [facility] Lasix) 40 mg IVP DAILY [facility] Imdur Er) 90 mg PO DAILY [facility] Lopressor) 50 mg PO DAILY [facility] Acute on Chronic Kidney Disease 10/16: Stop lasix as Cr 4.0. f/u 24hr urine collection f/u Renal ultrasound - No significant or acute findings to account for/ related to the clinical presentation. No significant interval change compared to the prior examination(s). Current GFR 18 and BUN 44 / Cr 4.0 Patient admitted with GFR 24 and BUN/Cr of 30/3.1 Cough 10/16: improving, continue diuresis 10/15: portable CXR with small b/l pleural effusion. likely due to volume status. improving Abx not needed at this time. May add on Azithromycin 500mg IVPB if warranted. likely 2/2 CHF fluid overload CXR 10/11 with RL PNA an mild CHF. Patient afebrile, WBC WNL f/u portable CXR to r/o PNA vs CHF fluid overload Hypertension monitor BP Norvasc) 10 mg PO DAILY [facility] Diabetes Novolog) 0 unit SC ACHS [facility] Hyperlipidemia Crestor) 10 mg PO HS [facility] Prophylaxis Lovenox) 30 mg SC DAILY [facility] Protonix Ec Tab) 40 mg PO DAILY [facility] Rocaltrol) 0.25 mcg PO DAILY [facility] Case discussed with attending. All medical management as per Dr. Nixon Romero. <Scooter Romero S - Last Filed: 10/16/17 23:23> Objective - Vital Signs/Intake and Output Vital Signs (last 24 hours): Temp Pulse Resp BP Pulse Ox 97.7 F 81 20 171/74 H 99 10/16/17 15:05 10/16/17 22:17 10/16/17 22:17 10/16/17 22:17 10/16/17 22:17 - Medications Medications: Current Medications Albuterol/Ipratropium (Duoneb 3 Mg/0.5 Mg (3 Ml) Ud) 3 ml INH RQ6 [facility] Last Admin: 10/16/17 20:32 Dose: 3 ml Amlodipine Besylate (Norvasc) 10 mg PO DAILY [facility] Last Admin: 10/16/17 10:28 Dose: 10 mg Aspirin (Ecotrin) 325 mg PO DAILY [facility] Last Admin: 10/16/17 10:29 Dose: 325 mg Calcitriol (Rocaltrol) 0.25 mcg PO DAILY [facility] Last Admin: 10/16/17 10:28 Dose: 0.25 mcg Clonidine HCl (Catapres) 0.1 mg PO BID [facility] Last Admin: 10/16/17 22:16 Dose: 0.1 mg Enoxaparin Sodium (Lovenox) 30 mg SC DAILY [facility] Last Admin: 10/16/17 10:32 Dose: 30 mg Glimepiride (Amaryl) 4 mg PO BID [facility] Last Admin: 10/16/17 18:09 Dose: 4 mg Insulin Aspart (Novolog) 0 unit SC [facility] PRN Reason: Protocol Last Admin: 10/16/17 21:38 Dose: Not Given Isosorbide Mononitrate (Imdur Er) 90 mg PO DAILY [facility] Last Admin: 10/16/17 10:29 Dose: 90 mg Metoprolol Tartrate (Lopressor) 50 mg PO DAILY [facility] Last Admin: 10/16/17 10:29 Dose: 50 mg Pantoprazole Sodium (Protonix Ec Tab) 40 mg PO DAILY [facility] Last Admin: 10/16/17 10:29 Dose: 40 mg Rosuvastatin Calcium (Crestor) 10 mg PO HS [facility] Last Admin: 10/16/17 21:48 Dose: 10 mg Tamsulosin HCl (Flomax) 0.4 mg PO DAILY [facility] Last Admin: 10/16/17 10:29 Dose: 0.4 mg - Labs Labs: 10/16/17 07:00 10/16/17 07:00 Attending/Attestation - Attestation I have personally seen and examined this patient.: Yes I have fully participated in the care of the patient.: Yes I have reviewed all pertinent clinical information, including history, physical exam and plan: Yes Notes (Text): 10/16/17 23:23 case seen and d.w staff and resident, concurred with finding and management.
[2017-10-16] MEDS: (Novolog) Insulin Aspart, Recombinant 100 u/ml 10 ml vial SC SCH ×4 (07:50→21:38)
[2017-10-16] MEDS: Aspirin 325 mg EC Tablets PO SCH (10:29)
[2017-10-16] MEDS: Pantoprazole 40 mg EC Tab PO SCH (10:29)
[2017-10-16] MEDS: Enoxaparin 30 mg Syringe SC SCH (10:32)
--- NOTE | 2017-10-16 13:24 | CP.PCM.PN ---
Subjective - Date & Time of Evaluation Date of Evaluation: 10/16/17 Time of Evaluation: 09:00 - Subjective Subjective: clinically same Objective - Vital Signs/Intake and Output Vital Signs (last 24 hours): Temp Pulse Resp BP Pulse Ox 98.9 F 49 L 20 143/73 98 10/16/17 08:24 10/16/17 11:37 10/16/17 08:24 10/16/17 10:32 10/16/17 08:24 Intake and Output: 10/16/17 10/16/17 06:59 18:59 Intake Total 180 Output Total 250 Balance -70 - Medications Medications: Current Medications Albuterol/Ipratropium (Duoneb 3 Mg/0.5 Mg (3 Ml) Ud) 3 ml INH RQ6 [facility] Last Admin: 10/16/17 13:22 Dose: 3 ml Amlodipine Besylate (Norvasc) 10 mg PO DAILY [facility] Last Admin: 10/16/17 10:28 Dose: 10 mg Aspirin (Ecotrin) 325 mg PO DAILY [facility] Last Admin: 10/16/17 10:29 Dose: 325 mg Calcitriol (Rocaltrol) 0.25 mcg PO DAILY [facility] Last Admin: 10/16/17 10:28 Dose: 0.25 mcg Clonidine HCl (Catapres) 0.1 mg PO BID [facility] Last Admin: 10/16/17 10:28 Dose: 0.1 mg Enoxaparin Sodium (Lovenox) 30 mg SC DAILY [facility] Last Admin: 10/16/17 10:32 Dose: 30 mg Furosemide (Lasix) 40 mg IVP DAILY [facility] Last Admin: 10/16/17 10:32 Dose: 40 mg Glimepiride (Amaryl) 4 mg PO BID [facility] Last Admin: 10/16/17 10:28 Dose: 4 mg Insulin Aspart (Novolog) 0 unit SC [facility] PRN Reason: Protocol Last Admin: 10/16/17 12:18 Dose: 6 unit Isosorbide Mononitrate (Imdur Er) 90 mg PO DAILY [facility] Last Admin: 10/16/17 10:29 Dose: 90 mg Metoprolol Tartrate (Lopressor) 50 mg PO DAILY [facility] Last Admin: 10/16/17 10:29 Dose: 50 mg Pantoprazole Sodium (Protonix Ec Tab) 40 mg PO DAILY [facility] Last Admin: 10/16/17 10:29 Dose: 40 mg Rosuvastatin Calcium (Crestor) 10 mg PO HS [facility] Last Admin: 10/15/17 22:14 Dose: 10 mg Tamsulosin HCl (Flomax) 0.4 mg PO DAILY [facility] Last Admin: 10/16/17 10:29 Dose: 0.4 mg - Labs Labs: 10/16/17 07:00 10/16/17 07:00 - Constitutional Appears: Well - Head Exam Head Exam: ATRAUMATIC, NORMAL INSPECTION, NORMOCEPHALIC - Eye Exam Eye Exam: EOMI, Normal appearance, PERRL Pupil Exam: NORMAL ACCOMODATION, PERRL - ENT Exam ENT Exam: Mucous Membranes Moist, Normal Exam - Neck Exam Neck Exam: Full ROM, Normal Inspection. absent: Lymphadenopathy - Respiratory Exam Respiratory Exam: Decreased Breath Sounds - Cardiovascular Exam Cardiovascular Exam: REGULAR RHYTHM, +S1, +S2 - GI/Abdominal Exam GI & Abdominal Exam: Soft, Diminished Bowel Sounds - Rectal Exam Rectal Exam: Deferred Assessment and Plan (1) CHF (congestive heart failure) Status: Acute - Assessment and Plan (Free Text) Plan: Assessment: Acute on Chronic CHF (congestive heart failure) 10/16: Breathing is improved. Continued LE edema (1+ pitting above knee), however improving. Recommendation of cardiology is to Stop Lasix as dyspnea improved ( likely due to diastolic dysfunction). 10/15: Continue current medications. Cardio consult, Dr. Valdez, f/u recs likely chronic diastolic dysfunction -> recommend addition of clonidine. added Imdur BNP 2980 Catapres) 0.1 mg PO BID [facility] Lasix) 40 mg IVP DAILY [facility] Imdur Er) 90 mg PO DAILY [facility] Lopressor) 50 mg PO DAILY [facility] Acute on Chronic Kidney Disease 10/16: Stop lasix as Cr 4.0. f/u 24hr urine collection f/u Renal ultrasound - No significant or acute findings to account for/ related to the clinical presentation. No significant interval change compared to the prior examination(s). Current GFR 18 and BUN 44 / Cr 4.0 Patient admitted with GFR 24 and BUN/Cr of 30/3.1 Cough 10/16: improving, continue diuresis 10/15: portable CXR with small b/l pleural effusion. likely due to volume status. improving Abx not needed at this time. May add on Azithromycin 500mg IVPB if warranted. likely 2/2 CHF fluid overload CXR 10/11 with RL PNA an mild CHF. Patient afebrile, WBC WNL f/u portable CXR to r/o PNA vs CHF fluid overload Hypertension monitor BP Norvasc) 10 mg PO DAILY [facility] Diabetes Novolog) 0 unit SC ACHS [facility] Hyperlipidemia Crestor) 10 mg PO HS [facility] Prophylaxis Lovenox) 30 mg SC DAILY [facility] Protonix Ec Tab) 40 mg PO DAILY [facility] Rocaltrol) 0.25 mcg PO DAILY [facility]
--- NOTE | 2017-10-16 15:09 | US ---
PROCEDURE: Ultrasound of the Kidneys HISTORY: rising Bun/Cr COMPARISON: 11/14/2016 renal ultrasound. TECHNIQUE: Sonogram of the kidneys. FINDINGS: RIGHT KIDNEY: Measures: 4.9 x 9.7 cm. Normal in size, contour and echogenicity. No stone, solid mass lesion or hydronephrosis visualized. LEFT KIDNEY: Measures: 4.3 x 9.1 cm. Normal in size, contour and echogenicity. No stone, solid mass lesion or hydronephrosis visualized. OTHER FINDINGS: Urinary bladder volume 514 mL. IMPRESSION: No significant or acute findings to account for/ related to the clinical presentation. No significant interval change compared to the prior examination(s).
--- NOTE | 2017-10-16 16:31 | CP.PCM.PN ---
Subjective - Date & Time of Evaluation Date of Evaluation: 10/16/17 Time of Evaluation: 16:30 Objective - Vital Signs/Intake and Output Vital Signs (last 24 hours): Temp Pulse Resp BP Pulse Ox 98.9 F 51 L 20 143/73 98 10/16/17 08:24 10/16/17 16:21 10/16/17 08:24 10/16/17 10:32 10/16/17 08:24 Intake and Output: 10/16/17 10/16/17 06:59 18:59 Intake Total 180 Output Total 250 Balance -70 - Medications Medications: Current Medications Albuterol/Ipratropium (Duoneb 3 Mg/0.5 Mg (3 Ml) Ud) 3 ml INH RQ6 [facility] Last Admin: 10/16/17 13:22 Dose: 3 ml Amlodipine Besylate (Norvasc) 10 mg PO DAILY [facility] Last Admin: 10/16/17 10:28 Dose: 10 mg Aspirin (Ecotrin) 325 mg PO DAILY [facility] Last Admin: 10/16/17 10:29 Dose: 325 mg Calcitriol (Rocaltrol) 0.25 mcg PO DAILY [facility] Last Admin: 10/16/17 10:28 Dose: 0.25 mcg Clonidine HCl (Catapres) 0.1 mg PO BID [facility] Last Admin: 10/16/17 10:28 Dose: 0.1 mg Enoxaparin Sodium (Lovenox) 30 mg SC DAILY [facility] Last Admin: 10/16/17 10:32 Dose: 30 mg Glimepiride (Amaryl) 4 mg PO BID [facility] Last Admin: 10/16/17 10:28 Dose: 4 mg Insulin Aspart (Novolog) 0 unit SC [facility] PRN Reason: Protocol Last Admin: 10/16/17 12:18 Dose: 6 unit Isosorbide Mononitrate (Imdur Er) 90 mg PO DAILY [facility] Last Admin: 10/16/17 10:29 Dose: 90 mg Metoprolol Tartrate (Lopressor) 50 mg PO DAILY [facility] Last Admin: 10/16/17 10:29 Dose: 50 mg Pantoprazole Sodium (Protonix Ec Tab) 40 mg PO DAILY [facility] Last Admin: 10/16/17 10:29 Dose: 40 mg Rosuvastatin Calcium (Crestor) 10 mg PO [facility] Last Admin: 10/15/17 22:14 Dose: 10 mg Tamsulosin HCl (Flomax) 0.4 mg PO DAILY [facility] Last Admin: 10/16/17 10:29 Dose: 0.4 mg - Labs Labs: 10/16/17 07:00 10/16/17 07:00
--- NOTE | 2017-10-16 16:46 | CARD ---
APPROVED REPORT EKG Measurement Heart [id number] <Conclusion> Sinus rhythm 2nd Degree AV block Type I Nonspecific T wave abnormality Abnormal ECG
[2017-10-17] MEDS: Albuterol-Ipratrop 3 mg / 0.5 (3 ml) UD INH SCH ×5 (01:33→20:18)
[2017-10-17 07:38] LABS: BASO % 0.7 % (0.0-2.0); EOS # 0.3 K/uL (0.0-0.7); EOS % 4.4 % (0.0-4.0); HEMOGLOBIN 7.9 g/dL (12.0-18.0); LYMPH # 1.6 K/uL (1.0-4.3); LYMPH % 24.2 % (20.0-40.0); MEAN CELL VOLUME 81.3 fL (80.0-94.0); MEAN CORPUSCULAR HEMOGLOBIN 27.3 pg (27.0-31.0); MEAN CORPUSCULAR HGB CONC 33.6 g/dL (33.0-37.0); MEAN PLATELET VOLUME 7.7 fL (7.2-11.7); MONO # 0.8 K/uL (0.0-0.8); MONO % 11.7 % (0.0-10.0); RBC 2.89 Mil/uL (4.40-5.90); RED CELL DISTRIBUTION WIDTH 13.6 % (11.5-14.5); WHITE BLOOD COUNT 6.7 K/uL (4.8-10.8)
[2017-10-17 08:28] LABS: ALB/GLOB RATIO 0.9 (1.0-2.1); ALBUMIN 3.1 g/dL (3.5-5.0); CALCIUM 8.5 mg/dl (8.6-10.4)
[2017-10-17] MEDS: (Novolog) Insulin Aspart, Recombinant 100 u/ml 10 ml vial SC SCH ×4 (08:50→21:58)
[2017-10-17] MEDS: Enoxaparin 30 mg Syringe SC SCH (09:21)
[2017-10-17] MEDS: Pantoprazole 40 mg EC Tab PO SCH (09:21)
[2017-10-17] MEDS: Aspirin 325 mg EC Tablets PO SCH (09:21)
--- NOTE | 2017-10-17 10:32 | CP.PCM.PN ---
Subjective - Date & Time of Evaluation Date of Evaluation: 10/17/17 Time of Evaluation: 07:35 - Subjective Subjective: PGY2 Resident - Medicine Progress Note Patient seen and examined at bedside. No acute distress. No overnight events. Pt is AAOx2. He feels his breathing has improved. He also reports his LE edema is back to normal, at roughly 1+ below the knee with chronic skin changes. Lasix stopped due to increasing Bun/Cr. He has been urinating well for 24-hr urine protein collection. 12-point review of systems is otherwise negative without any additional acute complaints. Objective - Vital Signs/Intake and Output Vital Signs (last 24 hours): Temp Pulse Resp BP Pulse Ox 98.1 F 84 20 164/71 H 100 10/17/17 08:35 10/17/17 08:35 10/17/17 08:35 10/17/17 08:35 10/17/17 08:35 - Medications Medications: Current Medications Albuterol/Ipratropium (Duoneb 3 Mg/0.5 Mg (3 Ml) Ud) 3 ml INH RQ6 [facility] Last Admin: 10/17/17 07:20 Dose: 3 ml Amlodipine Besylate (Norvasc) 10 mg PO DAILY [facility] Last Admin: 10/17/17 09:21 Dose: 10 mg Aspirin (Ecotrin) 325 mg PO DAILY [facility] Last Admin: 10/17/17 09:21 Dose: 325 mg Calcitriol (Rocaltrol) 0.25 mcg PO DAILY [facility] Last Admin: 10/17/17 09:21 Dose: 0.25 mcg Clonidine HCl (Catapres) 0.1 mg PO BID [facility] Last Admin: 10/17/17 09:21 Dose: 0.1 mg Enoxaparin Sodium (Lovenox) 30 mg SC DAILY [facility] Last Admin: 10/17/17 09:21 Dose: 30 mg Glimepiride (Amaryl) 4 mg PO BID [facility] Last Admin: 10/17/17 09:21 Dose: 4 mg Insulin Aspart (Novolog) 0 unit SC [facility] PRN Reason: Protocol Last Admin: 10/17/17 08:50 Dose: 2 unit Isosorbide Mononitrate (Imdur Er) 90 mg PO DAILY [facility] Last Admin: 10/17/17 09:21 Dose: 90 mg Metoprolol Tartrate (Lopressor) 50 mg PO DAILY [facility] Last Admin: 10/17/17 09:21 Dose: 50 mg Pantoprazole Sodium (Protonix Ec Tab) 40 mg PO DAILY [facility] Last Admin: 10/17/17 09:21 Dose: 40 mg Rosuvastatin Calcium (Crestor) 10 mg PO HS [facility] Last Admin: 10/16/17 21:48 Dose: 10 mg Tamsulosin HCl (Flomax) 0.4 mg PO DAILY [facility] Last Admin: 10/17/17 09:21 Dose: 0.4 mg - Labs Labs: 10/17/17 07:28 10/17/17 07:28 - Additional Findings Additional findings: - Constitutional Appears: Non-toxic - Head Exam Head Exam: NORMAL INSPECTION - Eye Exam Eye Exam: Normal appearance - ENT Exam ENT Exam: Mucous Membranes Moist - Neck Exam Neck Exam: Normal Inspection - Respiratory Exam Respiratory Exam: NORMAL BREATHING PATTERN, Decreased Breath Sounds, Rales ( mild at b/l bases). absent: Wheezes, Rhonchi - Cardiovascular Exam Cardiovascular Exam: REGULAR RHYTHM, S1, S2 - GI/Abdominal Exam GI & Abdominal Exam: Normal Bowel Sounds, Non-Distended - Extremities Exam Extremities Exam: Pedal Edema (1+ pitting edema, now below the knee, improving) - Neurological Exam Neurological Exam: Alert (AAOx2) - Psychiatric Exam Psychiatric exam: Normal Affect, Normal Mood - Skin Skin Exam: Normal Color Assessment and Plan - Assessment and Plan (Free Text) Assessment: Acute on Chronic CHF (congestive heart failure) 10/17: f/u CMP - IV Lasix stopped. Currently Dr. Valdez would like to stop Lasix. Repeat BUN/ Cr stable at 52/4.1 f/u with Dr. Valdez for any additional changes to BP med / diurretics ( patient on Lasix 40mg PO qd at home) 10/16: Breathing is improved. Continued LE edema (1+ pitting above knee), however improving. Recommendation of cardiology is to Stop Lasix as dyspnea improved ( likely due to diastolic dysfunction). 10/15: Continue current medications. Cardio consult, Dr. Valdez, f/u recs likely chronic diastolic dysfunction -> recommend addition of clonidine. 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 Lasix currently off, will recheck in AM. 10/16: Stop lasix as Cr 4.0. f/u 24hr urine collection -Renal ultrasound - No significant or acute findings to account for/ related to the clinical presentation. No significant interval change compared to the prior examination(s). Current GFR 18 and BUN 44 / Cr 4.0 Patient admitted with GFR 24 and BUN/Cr of 30/3.1 Anemia 10/17: Hgb 7.9, stable - continue to monitor Likely 2/2 CKD Cough 10/17: denies cough today 10/16: improving, continue diuresis 10/15: portable CXR with small b/l pleural effusion. likely due to volume status. improving Abx not needed at this time. May add on Azithromycin 500mg IVPB if warranted. likely 2/2 CHF fluid overload CXR 10/11 with RL PNA an mild CHF. Patient afebrile, WBC WNL f/u portable CXR to r/o PNA vs CHF fluid overload Hypertension BP 164/71 today, elevated. If remains elevated, may resume home Lasix 40mg PO qD. monitor BP Norvasc) 10 mg PO DAILY [facility] Diabetes Novolog) 0 unit SC ACHS [facility] Hyperlipidemia Crestor) 10 mg PO HS [facility] Prophylaxis Lovenox) 30 mg SC DAILY [facility] Protonix Ec Tab) 40 mg PO DAILY [facility] Rocaltrol) 0.25 mcg PO DAILY [facility] Case discussed with attending. All medical management as per Dr. Nixon Romero.
--- NOTE | 2017-10-17 13:12 | CP.PCM.PN ---
Subjective - Date & Time of Evaluation Date of Evaluation: 10/17/17 Time of Evaluation: 09:00 - Subjective Subjective: clinically same Objective - Vital Signs/Intake and Output Vital Signs (last 24 hours): Temp Pulse Resp BP Pulse Ox 98.1 F 63 20 164/71 H 100 10/17/17 08:35 10/17/17 12:25 10/17/17 08:35 10/17/17 08:35 10/17/17 08:35 - Medications Medications: Current Medications Albuterol/Ipratropium (Duoneb 3 Mg/0.5 Mg (3 Ml) Ud) 3 ml INH RQ6 [facility] Last Admin: 10/17/17 07:20 Dose: 3 ml Amlodipine Besylate (Norvasc) 10 mg PO DAILY [facility] Last Admin: 10/17/17 09:21 Dose: 10 mg Aspirin (Ecotrin) 325 mg PO DAILY [facility] Last Admin: 10/17/17 09:21 Dose: 325 mg Calcitriol (Rocaltrol) 0.25 mcg PO DAILY [facility] Last Admin: 10/17/17 09:21 Dose: 0.25 mcg Clonidine HCl (Catapres) 0.1 mg PO BID [facility] Last Admin: 10/17/17 09:21 Dose: 0.1 mg Enoxaparin Sodium (Lovenox) 30 mg SC DAILY [facility] Last Admin: 10/17/17 09:21 Dose: 30 mg Glimepiride (Amaryl) 4 mg PO BID [facility] Last Admin: 10/17/17 09:21 Dose: 4 mg Insulin Aspart (Novolog) 0 unit SC [facility] PRN Reason: Protocol Last Admin: 10/17/17 08:50 Dose: 2 unit Isosorbide Mononitrate (Imdur Er) 90 mg PO DAILY [facility] Last Admin: 10/17/17 09:21 Dose: 90 mg Metoprolol Tartrate (Lopressor) 50 mg PO DAILY [facility] Last Admin: 10/17/17 09:21 Dose: 50 mg Pantoprazole Sodium (Protonix Ec Tab) 40 mg PO DAILY [facility] Last Admin: 10/17/17 09:21 Dose: 40 mg Rosuvastatin Calcium (Crestor) 10 mg PO [facility] Last Admin: 10/16/17 21:48 Dose: 10 mg Tamsulosin HCl (Flomax) 0.4 mg PO DAILY [facility] Last Admin: 10/17/17 09:21 Dose: 0.4 mg - Labs Labs: 10/17/17 07:28 10/17/17 07:28 - Constitutional Appears: Well - Head Exam Head Exam: ATRAUMATIC, NORMAL INSPECTION, NORMOCEPHALIC - Eye Exam Eye Exam: EOMI, Normal appearance, PERRL Pupil Exam: NORMAL ACCOMODATION, PERRL - ENT Exam ENT Exam: Mucous Membranes Moist, Normal Exam - Neck Exam Neck Exam: Full ROM, Normal Inspection. absent: Lymphadenopathy - Respiratory Exam Respiratory Exam: Decreased Breath Sounds - Cardiovascular Exam Cardiovascular Exam: REGULAR RHYTHM, +S1, +S2 - GI/Abdominal Exam GI & Abdominal Exam: Soft, Diminished Bowel Sounds - Rectal Exam Rectal Exam: Deferred Assessment and Plan (1) CHF (congestive heart failure) Status: Acute
[2017-10-17 13:45] LABS: URINE 24 HOUR TOTAL PROTEIN 3129.8 mg/24hr (42-225)
[2017-10-17 14:29] LABS: ALB/GLOB RATIO 0.9 (1.0-2.1); ALBUMIN 3.3 g/dL (3.5-5.0); CALCIUM 8.3 mg/dl (8.6-10.4)
[2017-10-18] MEDS: Albuterol-Ipratrop 3 mg / 0.5 (3 ml) UD INH SCH ×4 (01:39→20:56)
[2017-10-18 07:41] LABS: BASO # 0.1 K/uL (0.0-0.2); BASO % 0.8 % (0.0-2.0); EOS # 0.3 K/uL (0.0-0.7); EOS % 4.8 % (0.0-4.0); HEMOGLOBIN 8.7 g/dL (12.0-18.0); LYMPH # 1.7 K/uL (1.0-4.3); LYMPH % 25.3 % (20.0-40.0); MEAN CELL VOLUME 80.9 fL (80.0-94.0); MEAN CORPUSCULAR HEMOGLOBIN 27.1 pg (27.0-31.0); MEAN CORPUSCULAR HGB CONC 33.5 g/dL (33.0-37.0); MEAN PLATELET VOLUME 7.8 fL (7.2-11.7); MONO # 0.7 K/uL (0.0-0.8); NEUT % 59.1 % (50.0-75.0); RBC 3.19 Mil/uL (4.40-5.90); RED CELL DISTRIBUTION WIDTH 13.7 % (11.5-14.5); WHITE BLOOD COUNT 6.8 K/uL (4.8-10.8)
[2017-10-18] MEDS: (Novolog) Insulin Aspart, Recombinant 100 u/ml 10 ml vial SC SCH ×4 (08:06→21:54)
[2017-10-18 08:07] LABS: ALB/GLOB RATIO 0.9 (1.0-2.1); ALBUMIN 3.5 g/dL (3.5-5.0); CALCIUM 8.8 mg/dl (8.6-10.4)
[2017-10-18] MEDS: Aspirin 325 mg EC Tablets PO SCH (10:36)
[2017-10-18] MEDS: Enoxaparin 30 mg Syringe SC SCH (10:36)
[2017-10-18] MEDS: Pantoprazole 40 mg EC Tab PO SCH (10:36)
--- NOTE | 2017-10-18 13:51 | CP.PCM.PN ---
Subjective - Date & Time of Evaluation Date of Evaluation: 10/18/17 Time of Evaluation: 13:50 - Subjective Subjective: Progress note. Attending: Dr. Romero Pt seen and examined at bedside. No acute distress. No events overnight. No fevers, chills, vomiting, diarrhea. Objective - Vital Signs/Intake and Output Vital Signs (last 24 hours): Temp Pulse Resp BP Pulse Ox 98.1 F 82 20 159/75 H 100 10/18/17 08:57 10/18/17 12:00 10/18/17 08:57 10/18/17 10:35 10/18/17 08:57 Intake and Output: 10/18/17 10/18/17 06:59 18:59 Intake Total 400 Output Total 750 Balance -350 - Medications Medications: Current Medications Albuterol/Ipratropium (Duoneb 3 Mg/0.5 Mg (3 Ml) Ud) 3 ml INH RQ6 [facility] Last Admin: 10/18/17 13:32 Dose: 3 ml Amlodipine Besylate (Norvasc) 10 mg PO DAILY [facility] Last Admin: 10/18/17 10:36 Dose: 10 mg Aspirin (Ecotrin) 325 mg PO DAILY [facility] Last Admin: 10/18/17 10:36 Dose: 325 mg Calcitriol (Rocaltrol) 0.25 mcg PO DAILY [facility] Last Admin: 10/18/17 10:36 Dose: 0.25 mcg Clonidine HCl (Catapres) 0.1 mg PO BID [facility] Last Admin: 10/18/17 10:36 Dose: 0.1 mg Enoxaparin Sodium (Lovenox) 30 mg SC DAILY [facility] Last Admin: 10/18/17 10:36 Dose: 30 mg Glimepiride (Amaryl) 4 mg PO BID [facility] Last Admin: 10/18/17 10:36 Dose: 4 mg Insulin Aspart (Novolog) 0 unit SC ACHS [facility] PRN Reason: Protocol Last Admin: 10/18/17 11:47 Dose: 6 unit Isosorbide Mononitrate (Imdur Er) 90 mg PO DAILY [facility] Last Admin: 10/18/17 10:36 Dose: 90 mg Metoprolol Tartrate (Lopressor) 50 mg PO DAILY [facility] Last Admin: 10/18/17 10:36 Dose: 50 mg Pantoprazole Sodium (Protonix Ec Tab) 40 mg PO DAILY [facility] Last Admin: 10/18/17 10:36 Dose: 40 mg Rosuvastatin Calcium (Crestor) 10 mg PO HS [facility] Last Admin: 10/17/17 21:54 Dose: 10 mg Tamsulosin HCl (Flomax) 0.4 mg PO DAILY [facility] Last Admin: 10/18/17 10:44 Dose: 0.4 mg - Labs Labs: 10/18/17 07:16 10/18/17 07:16 - Constitutional Appears: Non-toxic, No Acute Distress - Head Exam Head Exam: ATRAUMATIC, NORMAL INSPECTION - Eye Exam Eye Exam: EOMI - ENT Exam ENT Exam: Mucous Membranes Moist - Neck Exam Neck Exam: Full ROM, Normal Inspection - Respiratory Exam Respiratory Exam: absent: Respiratory Distress - Cardiovascular Exam Cardiovascular Exam: +S1, +S2 - GI/Abdominal Exam GI & Abdominal Exam: Soft, Normal Bowel Sounds. absent: Tenderness - Extremities Exam Extremities Exam: Full ROM, Normal Inspection - Back Exam Back Exam: NORMAL INSPECTION - Neurological Exam Neurological Exam: Alert, Awake, Oriented x3 - Psychiatric Exam Psychiatric exam: Normal Affect, Normal Mood - Skin Skin Exam: Dry, Intact, Normal Color, Warm Assessment and Plan - Assessment and Plan (Free Text) Assessment: Acute on Chronic CHF (congestive heart failure) 10/18: continuing to hold lasix 10/17: f/u CMP - IV Lasix stopped. Currently Dr. Valdez would like to stop Lasix. Repeat BUN/ Cr stable at 52/4.1 f/u with Dr. Valdez for any additional changes to BP med / diurretics ( patient on Lasix 40mg PO qd at home) 10/16: Breathing is improved. Continued LE edema (1+ pitting above knee), however improving. Recommendation of cardiology is to Stop Lasix as dyspnea improved ( likely due to diastolic dysfunction). 10/15: Continue current medications. Cardio consult, Dr. Valdez, f/u recs likely chronic diastolic dysfunction -> recommend addition of clonidine. 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 Lasix currently off, will recheck in AM. 10/16: Stop lasix as Cr 4.0. f/u 24hr urine collection -Renal ultrasound - No significant or acute findings to account for/ related to the clinical presentation. No significant interval change compared to the prior examination(s). Current GFR 18 and BUN 44 / Cr 4.0 Patient admitted with GFR 24 and BUN/Cr of 30/3.1 Anemia -HGB 8.7 today, much improved -likely secondary to CKD Cough 10/17: denies cough today 10/16: improving, continue diuresis 10/15: portable CXR with small b/l pleural effusion. likely due to volume status. improving Abx not needed at this time. May add on Azithromycin 500mg IVPB if warranted. likely 2/2 CHF fluid overload CXR 10/11 with RL PNA an mild CHF. Patient afebrile, WBC WNL f/u portable CXR to r/o PNA vs CHF fluid overload Hypertension -continue to monitor -stable -continue amlodipine daily Diabetes -continue ISS Hyperlipidemia -continue crestor PO HS Prophylaxis -continue lovenox -continue protonix Case discussed with attending. All medical management as per Dr. Nixon Romero.
--- NOTE | 2017-10-18 14:49 | CP.PCM.PN ---
Subjective - Date & Time of Evaluation Date of Evaluation: 10/18/17 Time of Evaluation: 10:20 - Subjective Subjective: clinically same Objective - Vital Signs/Intake and Output Vital Signs (last 24 hours): Temp Pulse Resp BP Pulse Ox 98.1 F 82 20 159/75 H 100 10/18/17 08:57 10/18/17 12:00 10/18/17 08:57 10/18/17 10:35 10/18/17 08:57 Intake and Output: 10/18/17 10/18/17 06:59 18:59 Intake Total 400 Output Total 750 Balance -350 - Medications Medications: Current Medications Albuterol/Ipratropium (Duoneb 3 Mg/0.5 Mg (3 Ml) Ud) 3 ml INH RQ6 [facility] Last Admin: 10/18/17 13:32 Dose: 3 ml Amlodipine Besylate (Norvasc) 10 mg PO DAILY [facility] Last Admin: 10/18/17 10:36 Dose: 10 mg Aspirin (Ecotrin) 325 mg PO DAILY [facility] Last Admin: 10/18/17 10:36 Dose: 325 mg Calcitriol (Rocaltrol) 0.25 mcg PO DAILY [facility] Last Admin: 10/18/17 10:36 Dose: 0.25 mcg Clonidine HCl (Catapres) 0.1 mg PO BID [facility] Last Admin: 10/18/17 10:36 Dose: 0.1 mg Enoxaparin Sodium (Lovenox) 30 mg SC DAILY [facility] Last Admin: 10/18/17 10:36 Dose: 30 mg Glimepiride (Amaryl) 4 mg PO BID [facility] Last Admin: 10/18/17 10:36 Dose: 4 mg Insulin Aspart (Novolog) 0 unit SC [facility] PRN Reason: Protocol Last Admin: 10/18/17 11:47 Dose: 6 unit Isosorbide Mononitrate (Imdur Er) 90 mg PO DAILY [facility] Last Admin: 10/18/17 10:36 Dose: 90 mg Metoprolol Tartrate (Lopressor) 50 mg PO DAILY [facility] Last Admin: 10/18/17 10:36 Dose: 50 mg Pantoprazole Sodium (Protonix Ec Tab) 40 mg PO DAILY [facility] Last Admin: 10/18/17 10:36 Dose: 40 mg Rosuvastatin Calcium (Crestor) 10 mg PO HS [facility] Last Admin: 10/17/17 21:54 Dose: 10 mg Tamsulosin HCl (Flomax) 0.4 mg PO DAILY [facility] Last Admin: 10/18/17 10:44 Dose: 0.4 mg - Labs Labs: 10/18/17 07:16 10/18/17 07:16 - Constitutional Appears: Well - Head Exam Head Exam: ATRAUMATIC, NORMAL INSPECTION, NORMOCEPHALIC - Eye Exam Eye Exam: EOMI, Normal appearance, PERRL Pupil Exam: NORMAL ACCOMODATION, PERRL - ENT Exam ENT Exam: Mucous Membranes Moist, Normal Exam - Neck Exam Neck Exam: Full ROM, Normal Inspection. absent: Lymphadenopathy - Respiratory Exam Respiratory Exam: Decreased Breath Sounds - Cardiovascular Exam Cardiovascular Exam: REGULAR RHYTHM, +S1, +S2 - GI/Abdominal Exam GI & Abdominal Exam: Soft, Diminished Bowel Sounds - Rectal Exam Rectal Exam: Deferred Assessment and Plan (1) CHF (congestive heart failure) Status: Acute
--- NOTE | 2017-10-18 15:18 | CP.PCM.PN ---
Subjective - Date & Time of Evaluation Date of Evaluation: 10/18/17 Time of Evaluation: 15:18 Objective - Vital Signs/Intake and Output Vital Signs (last 24 hours): Temp Pulse Resp BP Pulse Ox 98.1 F 69 20 137/76 100 10/18/17 08:57 10/18/17 14:50 10/18/17 08:57 10/18/17 14:50 10/18/17 08:57 Intake and Output: 10/18/17 10/18/17 06:59 18:59 Intake Total 400 400 Output Total 750 Balance -350 400 - Medications Medications: Current Medications Albuterol/Ipratropium (Duoneb 3 Mg/0.5 Mg (3 Ml) Ud) 3 ml INH RQ6 [facility] Last Admin: 10/18/17 13:32 Dose: 3 ml Amlodipine Besylate (Norvasc) 10 mg PO DAILY [facility] Last Admin: 10/18/17 10:36 Dose: 10 mg Aspirin (Ecotrin) 325 mg PO DAILY [facility] Last Admin: 10/18/17 10:36 Dose: 325 mg Calcitriol (Rocaltrol) 0.25 mcg PO DAILY [facility] Last Admin: 10/18/17 10:36 Dose: 0.25 mcg Clonidine HCl (Catapres) 0.1 mg PO BID [facility] Last Admin: 10/18/17 10:36 Dose: 0.1 mg Enoxaparin Sodium (Lovenox) 30 mg SC DAILY [facility] Last Admin: 10/18/17 10:36 Dose: 30 mg Glimepiride (Amaryl) 4 mg PO BID [facility] Last Admin: 10/18/17 10:36 Dose: 4 mg Insulin Aspart (Novolog) 0 unit SC [facility] PRN Reason: Protocol Last Admin: 10/18/17 11:47 Dose: 6 unit Isosorbide Mononitrate (Imdur Er) 90 mg PO DAILY [facility] Last Admin: 10/18/17 10:36 Dose: 90 mg Metoprolol Tartrate (Lopressor) 50 mg PO DAILY [facility] Last Admin: 10/18/17 10:36 Dose: 50 mg Pantoprazole Sodium (Protonix Ec Tab) 40 mg PO DAILY [facility] Last Admin: 10/18/17 10:36 Dose: 40 mg Rosuvastatin Calcium (Crestor) 10 mg PO [facility] Last Admin: 10/17/17 21:54 Dose: 10 mg Tamsulosin HCl (Flomax) 0.4 mg PO DAILY [facility] Last Admin: 10/18/17 10:44 Dose: 0.4 mg - Labs Labs: 10/18/17 07:16 10/18/17 07:16
[2017-10-19] MEDS: Albuterol-Ipratrop 3 mg / 0.5 (3 ml) UD INH SCH ×4 (01:24→20:17)
[2017-10-19 06:19] LABS: BASO # 0.1 K/uL (0.0-0.2); BASO % 0.8 % (0.0-2.0); EOS # 0.3 K/uL (0.0-0.7); EOS % 4.3 % (0.0-4.0); HEMOGLOBIN 8.6 g/dL (12.0-18.0); LYMPH # 1.3 K/uL (1.0-4.3); LYMPH % 19.4 % (20.0-40.0); MEAN CELL VOLUME 81.3 fL (80.0-94.0); MEAN CORPUSCULAR HEMOGLOBIN 27.7 pg (27.0-31.0); MEAN CORPUSCULAR HGB CONC 34.1 g/dL (33.0-37.0); MEAN PLATELET VOLUME 7.4 fL (7.2-11.7); MONO # 0.7 K/uL (0.0-0.8); NEUT # 4.5 K/uL (1.8-7.0); NEUT % 65.5 % (50.0-75.0); RBC 3.12 Mil/uL (4.40-5.90); RED CELL DISTRIBUTION WIDTH 13.5 % (11.5-14.5); WHITE BLOOD COUNT 6.9 K/uL (4.8-10.8)
[2017-10-19 06:36] LABS: ALB/GLOB RATIO 0.8 (1.0-2.1); ALBUMIN 3.5 g/dL (3.5-5.0); CALCIUM 8.4 mg/dl (8.6-10.4)
[2017-10-19] MEDS: (Novolog) Insulin Aspart, Recombinant 100 u/ml 10 ml vial SC SCH ×4 (08:39→22:30)
--- NOTE | 2017-10-19 10:04 | CP.PCM.PN ---
Subjective - Date & Time of Evaluation Date of Evaluation: 10/19/17 Time of Evaluation: 09:41 - Subjective Subjective: PGY-[address] Romero's service: Pt seen and examined at bedside. Nursing reports no acute events overnight. Patient reports his breathing has improved since admission but his legs "are about the same." Patient states he is able to walk to the bathroom without being SOB. Denies chest pain this AM. Admits tolerating diet, but admits not watching sodium/fluid intake. Objective - Vital Signs/Intake and Output Vital Signs (last 24 hours): Temp Pulse Resp BP Pulse Ox 97.3 F L 77 20 160/72 H 99 10/19/17 08:42 10/19/17 08:42 10/19/17 08:42 10/19/17 08:42 10/19/17 08:42 Intake and Output: 10/19/17 10/19/17 06:59 18:59 Intake Total 240 Output Total 150 Balance 90 - Medications Medications: Current Medications Albuterol/Ipratropium (Duoneb 3 Mg/0.5 Mg (3 Ml) Ud) 3 ml INH RQ6 [facility] Last Admin: 10/19/17 07:41 Dose: 3 ml Amlodipine Besylate (Norvasc) 10 mg PO DAILY [facility] Last Admin: 10/18/17 10:36 Dose: 10 mg Aspirin (Ecotrin) 325 mg PO DAILY [facility] Last Admin: 10/18/17 10:36 Dose: 325 mg Calcitriol (Rocaltrol) 0.25 mcg PO DAILY [facility] Last Admin: 10/18/17 10:36 Dose: 0.25 mcg Clonidine HCl (Catapres) 0.1 mg PO BID [facility] Last Admin: 10/18/17 17:58 Dose: 0.1 mg Enoxaparin Sodium (Lovenox) 30 mg SC DAILY [facility] Last Admin: 10/18/17 10:36 Dose: 30 mg Glimepiride (Amaryl) 4 mg PO BID [facility] Last Admin: 10/18/17 17:58 Dose: 4 mg Insulin Aspart (Novolog) 0 unit SC [facility] REPLAC[facility] BY [facility] PRN Reason: Protocol Last Admin: 10/19/17 08:39 Dose: 4 unit Isosorbide Mononitrate (Imdur Er) 90 mg PO DAILY [facility] Last Admin: 10/18/17 10:36 Dose: 90 mg Metoprolol Tartrate (Lopressor) 50 mg PO DAILY [facility] Last Admin: 10/18/17 10:36 Dose: 50 mg Pantoprazole Sodium (Protonix Ec Tab) 40 mg PO DAILY [facility] Last Admin: 10/18/17 10:36 Dose: 40 mg Rosuvastatin Calcium (Crestor) 10 mg PO HS [facility] Last Admin: 10/18/17 21:54 Dose: 10 mg Tamsulosin HCl (Flomax) 0.4 mg PO DAILY [facility] Last Admin: 10/18/17 10:44 Dose: 0.4 mg - Labs Labs: 10/19/17 06:10 10/19/17 06:10 - Additional Findings Additional findings: - Constitutional Appears: Non-toxic, No Acute Distress - Head Exam Head Exam: ATRAUMATIC, NORMAL INSPECTION - Eye Exam Eye Exam: EOMI - ENT Exam ENT Exam: Mucous Membranes Moist - Neck Exam Neck Exam: Full ROM, Normal Inspection - Respiratory Exam Respiratory Exam: absent: Respiratory Distress - Cardiovascular Exam Cardiovascular Exam: +S1, +S2 - GI/Abdominal Exam GI & Abdominal Exam: Soft, Normal Bowel Sounds. absent: Tenderness - Extremities Exam Extremities Exam: 2+ pitting edema bilaterally - Back Exam Back Exam: NORMAL INSPECTION - Neurological Exam Neurological Exam: Alert, Awake, Oriented x3 - Psychiatric Exam Psychiatric exam: Normal Affect, Normal Mood - Skin Skin Exam: Dry, Intact, Normal Color, Warm Assessment and Plan - Assessment and Plan (Free Text) Plan: Acute on Chronic Diastolic CHF (congestive heart failure) Admit to Tele Cardio consult, Dr. Valdez, f/u recs likely chronic diastolic dysfunction -> recommend addition of clonidine. added Imdur ECHO (10/11/17): EF 60-65%, LA moderately dilated, mild concentric LVH, diastolic dysfunction grade one, no pericardial effusion. EKG (10/11/17): NSR @ 60bpm, 2nd Degree AV block Type I, Nonspecific T wave abnormality CXR (10/15/17): Possible RLL infiltrate. Small b/l pleural effusion - f/u repeat CXR BNP 2980 Trop negative throughout course Catapres) 0.1 mg PO BID [facility] HOLD Lasix) 40 mg IVP DAILY [facility] Imdur Er) 90 mg PO DAILY [facility] Lopressor) 50 mg PO DAILY [facility] Acute on Chronic Kidney Disease Current GFR 18 and BUN 44 / Cr 4.0 Patient admitted with GFR 24 and BUN/Cr of 30/3.1 10/18: continuing to hold lasix 10/16: Stop lasix as Cr 4.0. f/u 24hr urine collection -Renal ultrasound - No significant or acute findings to account for/ related to the clinical presentation. No significant interval change compared to the prior examination(s). Mobitz Type I, 2nd Degree AV block EKG (10/11/17): NSR @ 60bpm, 2nd Degree AV block Type I, Nonspecific T wave abnormality Anemia -HGB 8.6 today, much improved -likely secondary to CKD Pleural effusion 10/15: portable CXR with small b/l pleural effusion. likely due to volume status. improving CXR 10/11 with RL PNA an mild CHF. likely 2/2 CHF fluid overload Hypertension Elevated this AM Norvasc 10mg PO Daily Clonidine 0.1 mg PO BID Im[facility] Er 90 mg PO DAILY [facility] Lopressor 50 mg PO DAILY [facility] Diabetes -continue ISS - Amaryl 4mg PO BID Hypoglycemia protocol Hyperlipidemia -continue crestor PO HS Prophylaxis -continue lovenox 30mg SC daily (renal dosage) -continue protonix PT: recommend ALEJANDRO Case discussed with attending. All medical management as per Dr. Nixon Romero.
[2017-10-19] MEDS: Enoxaparin 30 mg Syringe SC SCH (10:07)
[2017-10-19] MEDS: Aspirin 325 mg EC Tablets PO SCH (10:08)
[2017-10-19] MEDS: Pantoprazole 40 mg EC Tab PO SCH (10:08)
--- NOTE | 2017-10-19 13:21 | RAD ---
HISTORY: f/u effusion, poss infiltrate on 10/15 CXR COMPARISON: 10/15/2017 FINDINGS: LUNGS: Persistent opacity at right base. Patchy opacity mass seen at left base. PLEURA: Blunting of both costophrenic angles suggestive of small pleural effusions. Linear density adjacent to right hilum likely represents minor fissure, with fluid or thickening. CARDIOVASCULAR: Normal. OSSEOUS STRUCTURES: No significant abnormalities. VISUALIZED UPPER ABDOMEN: Normal. OTHER FINDINGS: None. IMPRESSION: Bibasilar patchy opacity and small bilateral pleural effusion.
--- NOTE | 2017-10-19 14:08 | CP.PCM.PN ---
Subjective - Date & Time of Evaluation Date of Evaluation: 10/19/17 Time of Evaluation: 12:00 - Subjective Subjective: clinically same Objective - Vital Signs/Intake and Output Vital Signs (last 24 hours): Temp Pulse Resp BP Pulse Ox 97.3 F L 80 20 144/78 99 10/19/17 08:42 10/19/17 12:00 10/19/17 08:42 10/19/17 10:27 10/19/17 08:42 Intake and Output: 10/19/17 10/19/17 06:59 18:59 Intake Total 240 Output Total 150 Balance 90 - Medications Medications: Current Medications Albuterol/Ipratropium (Duoneb 3 Mg/0.5 Mg (3 Ml) Ud) 3 ml INH RQ6 [facility] Last Admin: 10/19/17 13:49 Dose: 3 ml Amlodipine Besylate (Norvasc) 10 mg PO DAILY [facility] Last Admin: 10/19/17 10:08 Dose: 10 mg Aspirin (Ecotrin) 325 mg PO DAILY [facility] Last Admin: 10/19/17 10:08 Dose: 325 mg Calcitriol (Rocaltrol) 0.25 mcg PO DAILY [facility] Last Admin: 10/19/17 10:08 Dose: 0.25 mcg Clonidine HCl (Catapres) 0.1 mg PO BID [facility] Last Admin: 10/19/17 10:08 Dose: 0.1 mg Glimepiride (Amaryl) 4 mg PO BID [facility] Last Admin: 10/19/17 10:08 Dose: 4 mg Insulin Aspart (Novolog) [address] [facility] PRN Reason: Protocol Last Admin: 10/19/17 12:13 Dose: 4 unit Isosorbide Mononitrate (Imdur Er) 90 mg PO DAILY [facility] Last Admin: 10/19/17 10:34 Dose: 90 mg Metoprolol Tartrate (Lopressor) 50 mg PO DAILY [facility] Last Admin: 10/19/17 10:34 Dose: Not Given Pantoprazole Sodium (Protonix Ec Tab) 40 mg PO DAILY [facility] Last Admin: 10/19/17 10:08 Dose: 40 mg Rosuvastatin Calcium (Crestor) 10 mg PO HS [facility] Last Admin: 10/18/17 21:54 Dose: 10 mg Tamsulosin HCl (Flomax) 0.4 mg PO DAILY [facility] Last Admin: 10/19/17 10:08 Dose: 0.4 mg - Labs Labs: 10/19/17 06:10 10/19/17 06:10 - Constitutional Appears: Well - Head Exam Head Exam: ATRAUMATIC, NORMAL INSPECTION, NORMOCEPHALIC - Eye Exam Eye Exam: EOMI, Normal appearance, PERRL Pupil Exam: NORMAL ACCOMODATION, PERRL - ENT Exam ENT Exam: Mucous Membranes Moist, Normal Exam - Neck Exam Neck Exam: Full ROM, Normal Inspection. absent: Lymphadenopathy - Respiratory Exam Respiratory Exam: Decreased Breath Sounds - Cardiovascular Exam Cardiovascular Exam: REGULAR RHYTHM, +S1, +S2 - GI/Abdominal Exam GI & Abdominal Exam: Soft, Diminished Bowel Sounds - Rectal Exam Rectal Exam: Deferred Assessment and Plan (1) CHF (congestive heart failure) Status: Acute
[2017-10-19] MEDS ORDERED: Glucagon Recombinant 1 mg Inj IM PRN (15:32)
[2017-10-19] MEDS ORDERED: Dextrose 50% SYRINGE Inj (50 ml) IV PRN (15:32)
--- NOTE | 2017-10-19 17:38 | CP.PCM.PN ---
Subjective - Date & Time of Evaluation Date of Evaluation: 10/19/17 Time of Evaluation: 08:10 - Subjective Subjective: patient has no current chest pain. had periods of bradycardia at night. had a preiod of Wenckebach Objective - Vital Signs/Intake and Output Vital Signs (last 24 hours): Temp Pulse Resp BP Pulse Ox 97.4 F L 20 L 20 142/66 99 10/19/17 16:00 10/19/17 16:15 10/19/17 16:00 10/19/17 16:00 10/19/17 16:00 Intake and Output: 10/19/17 10/19/17 06:59 18:59 Intake Total 240 400 Output Total 150 Balance 90 400 - Medications Medications: Current Medications Albuterol/Ipratropium (Duoneb 3 Mg/0.5 Mg (3 Ml) Ud) 3 ml INH RQ6 [facility] Last Admin: 10/19/17 13:49 Dose: 3 ml Amlodipine Besylate (Norvasc) 10 mg PO DAILY [facility] Last Admin: 10/19/17 10:08 Dose: 10 mg Aspirin (Ecotrin) 325 mg PO DAILY [facility] Last Admin: 10/19/17 10:08 Dose: 325 mg Calcitriol (Rocaltrol) 0.25 mcg PO DAILY [facility] Last Admin: 10/19/17 10:08 Dose: 0.25 mcg Clonidine HCl (Catapres) 0.1 mg PO BID [facility] Last Admin: 10/19/17 17:32 Dose: 0.1 mg Dextrose (Dextrose 50% Inj) 0 ml IV STAT PRN; Protocol PRN Reason: Hypoglycemia Protocol Dextrose (Glutose 15) 0 gm PO ONCE PRN; Protocol PRN Reason: Hypoglycemia Protocol Enoxaparin Sodium (Lovenox) 30 mg SC DAILY [facility] Glimepiride (Amaryl) 4 mg PO BID [facility] Last Admin: 10/19/17 17:32 Dose: 4 mg Glucagon (Glucagen Diagnostic Kit) 0 mg IM STAT PRN; Protocol PRN Reason: Hypoglycemia Protocol Dextrose (Dextrose 5% In Water 1000 Ml) 1,000 mls @ 0 mls/hr IV .Q0M PRN; Protocol; Per Protocol PRN Reason: Hypoglycemia Protocol Insulin Aspart (Novolog) 0 unit SC ACHS [facility] PRN Reason: Protocol Last Admin: 10/19/17 17:33 Dose: 2 unit Isosorbide Mononitrate (Imdur Er) 90 mg PO DAILY [facility] Last Admin: 10/19/17 10:34 Dose: 90 mg Metoprolol Tartrate (Lopressor) 50 mg PO DAILY [facility] Last Admin: 10/19/17 10:34 Dose: Not Given Pantoprazole Sodium (Protonix Ec Tab) 40 mg PO DAILY [facility] Last Admin: 10/19/17 10:08 Dose: 40 mg Rosuvastatin Calcium (Crestor) 10 mg PO HS [facility] Last Admin: 10/18/17 21:54 Dose: 10 mg Tamsulosin HCl (Flomax) 0.4 mg PO DAILY [facility] Last Admin: 10/19/17 10:08 Dose: 0.4 mg - Labs Labs: 10/19/17 06:10 10/19/17 06:10 - Constitutional Appears: Non-toxic - Head Exam Head Exam: NORMAL INSPECTION - Eye Exam Eye Exam: Normal appearance - ENT Exam ENT Exam: Mucous Membranes Moist - Neck Exam Neck Exam: Full ROM - Respiratory Exam Respiratory Exam: NORMAL BREATHING PATTERN - Cardiovascular Exam Cardiovascular Exam: REGULAR RHYTHM - GI/Abdominal Exam GI & Abdominal Exam: Normal Bowel Sounds - Rectal Exam Rectal Exam: Deferred - Extremities Exam Extremities Exam: Pedal Edema - Back Exam Back Exam: NORMAL INSPECTION - Neurological Exam Neurological Exam: Alert - Psychiatric Exam Psychiatric exam: Normal Affect - Skin Skin Exam: Normal Color Assessment and Plan (1) CHF (congestive heart failure) Assessment & Plan: diastolic dysfunction. continue current medications. will monitor heart rate and may need to decrease AV diaz neto. Status: Acute
[2017-10-20] MEDS: Albuterol-Ipratrop 3 mg / 0.5 (3 ml) UD INH SCH ×4 (03:38→19:53)
[2017-10-20 07:56] LABS: BASO % 0.8 % (0.0-2.0); EOS # 0.3 K/uL (0.0-0.7); EOS % 4.4 % (0.0-4.0); HEMOGLOBIN 7.7 g/dL (12.0-18.0); LYMPH # 1.2 K/uL (1.0-4.3); MEAN CELL VOLUME 81.3 fL (80.0-94.0); MEAN CORPUSCULAR HEMOGLOBIN 27.3 pg (27.0-31.0); MEAN CORPUSCULAR HGB CONC 33.6 g/dL (33.0-37.0); MEAN PLATELET VOLUME 7.8 fL (7.2-11.7); MONO # 0.7 K/uL (0.0-0.8); MONO % 11.1 % (0.0-10.0); NEUT # 3.7 K/uL (1.8-7.0); NEUT % 62.7 % (50.0-75.0); RBC 2.83 Mil/uL (4.40-5.90); RED CELL DISTRIBUTION WIDTH 13.4 % (11.5-14.5); WHITE BLOOD COUNT 5.8 K/uL (4.8-10.8)
[2017-10-20] MEDS: (Novolog) Insulin Aspart, Recombinant 100 u/ml 10 ml vial SC SCH ×4 (08:21→22:27)
[2017-10-20 08:36] LABS: ALB/GLOB RATIO 0.9 (1.0-2.1); ALBUMIN 3.3 g/dL (3.5-5.0); CALCIUM 8.5 mg/dl (8.6-10.4)
[2017-10-20] MEDS: Pantoprazole 40 mg EC Tab PO SCH (10:25)
[2017-10-20] MEDS: Enoxaparin 30 mg Syringe SC SCH (10:25)
[2017-10-20] MEDS: Aspirin 325 mg EC Tablets PO SCH (10:30)
--- NOTE | 2017-10-20 20:23 | CP.PCM.PN ---
Subjective - Date & Time of Evaluation Date of Evaluation: 10/20/17 Time of Evaluation: 08:20 - Subjective Subjective: clinically same Objective - Vital Signs/Intake and Output Vital Signs (last 24 hours): Temp Pulse Resp BP Pulse Ox 97.6 F 75 20 145/69 100 10/20/17 16:00 10/20/17 16:00 10/20/17 16:00 10/20/17 16:00 10/20/17 16:00 - Medications Medications: Current Medications Albuterol/Ipratropium (Duoneb 3 Mg/0.5 Mg (3 Ml) Ud) 3 ml INH RQ6 [facility] Last Admin: 10/20/17 19:53 Dose: 3 ml Amlodipine Besylate (Norvasc) 10 mg PO DAILY [facility] Last Admin: 10/20/17 10:25 Dose: 10 mg Aspirin (Ecotrin) 325 mg PO DAILY [facility] Last Admin: 10/20/17 10:30 Dose: 325 mg Calcitriol (Rocaltrol) 0.25 mcg PO DAILY [facility] Last Admin: 10/20/17 10:25 Dose: 0.25 mcg Clonidine HCl (Catapres) 0.1 mg PO BID [facility] Last Admin: 10/20/17 10:25 Dose: 0.1 mg Dextrose (Dextrose 50% Inj) 0 ml IV STAT PRN; Protocol PRN Reason: Hypoglycemia Protocol Dextrose (Glutose 15) 0 gm PO ONCE PRN; Protocol PRN Reason: Hypoglycemia Protocol Enoxaparin Sodium (Lovenox) 30 mg SC DAILY [facility] Last Admin: 10/20/17 10:25 Dose: 30 mg Glimepiride (Amaryl) 4 mg PO BID [facility] Last Admin: 10/20/17 17:47 Dose: 4 mg Glucagon (Glucagen Diagnostic Kit) 0 mg IM STAT PRN; Protocol PRN Reason: Hypoglycemia Protocol Dextrose (Dextrose 5% In Water 1000 Ml) 1,000 mls @ 0 mls/hr IV .Q0M PRN; Protocol; Per Protocol PRN Reason: Hypoglycemia Protocol Insulin Aspart (Novolog) 0 unit SC [facility] PRN Reason: Protocol Last Admin: 10/20/17 17:30 Dose: 2 unit Isosorbide Mononitrate (Imdur Er) 90 mg PO DAILY [facility] Last Admin: 10/20/17 10:25 Dose: 90 mg Metoprolol Tartrate (Lopressor) 50 mg PO DAILY [facility] Last Admin: 10/20/17 10:25 Dose: 50 mg Pantoprazole Sodium (Protonix Ec Tab) 40 mg PO DAILY [facility] Last Admin: 10/20/17 10:25 Dose: 40 mg Rosuvastatin Calcium (Crestor) 10 mg PO HS [facility] Last Admin: 10/19/17 21:29 Dose: 10 mg Tamsulosin HCl (Flomax) 0.4 mg PO DAILY [facility] Last Admin: 10/20/17 10:25 Dose: 0.4 mg - Labs Labs: 10/20/17 07:46 10/20/17 07:46 - Constitutional Appears: Well - Head Exam Head Exam: ATRAUMATIC, NORMAL INSPECTION, NORMOCEPHALIC - Eye Exam Eye Exam: EOMI, Normal appearance, PERRL Pupil Exam: NORMAL ACCOMODATION, PERRL - ENT Exam ENT Exam: Mucous Membranes Moist, Normal Exam - Neck Exam Neck Exam: Full ROM, Normal Inspection. absent: Lymphadenopathy - Respiratory Exam Respiratory Exam: Decreased Breath Sounds - Cardiovascular Exam Cardiovascular Exam: REGULAR RHYTHM, +S1, +S2 - GI/Abdominal Exam GI & Abdominal Exam: Soft, Diminished Bowel Sounds - Rectal Exam Rectal Exam: Deferred Assessment and Plan (1) CHF (congestive heart failure) Status: Acute
[2017-10-21] MEDS: Albuterol-Ipratrop 3 mg / 0.5 (3 ml) UD INH SCH ×3 (01:28→13:24)
[2017-10-21 07:47] LABS: BASO # 0.1 K/uL (0.0-0.2); BASO % 0.7 % (0.0-2.0); EOS # 0.3 K/uL (0.0-0.7); EOS % 3.9 % (0.0-4.0); HEMOGLOBIN 8.7 g/dL (12.0-18.0); LYMPH # 1.9 K/uL (1.0-4.3); LYMPH % 23.8 % (20.0-40.0); MEAN CELL VOLUME 81.5 fL (80.0-94.0); MEAN CORPUSCULAR HEMOGLOBIN 26.9 pg (27.0-31.0); MEAN PLATELET VOLUME 7.6 fL (7.2-11.7); MONO # 0.9 K/uL (0.0-0.8); MONO % 10.9 % (0.0-10.0); NEUT # 4.8 K/uL (1.8-7.0); NEUT % 60.7 % (50.0-75.0); RBC 3.22 Mil/uL (4.40-5.90); RED CELL DISTRIBUTION WIDTH 13.8 % (11.5-14.5)
[2017-10-21 08:15] LABS: ALB/GLOB RATIO 0.9 (1.0-2.1); ALBUMIN 3.7 g/dL (3.5-5.0); CALCIUM 8.7 mg/dl (8.6-10.4)
[2017-10-21] MEDS: (Novolog) Insulin Aspart, Recombinant 100 u/ml 10 ml vial SC SCH ×4 (08:21→21:34)
[2017-10-21] MEDS: Pantoprazole 40 mg EC Tab PO SCH (10:35)
[2017-10-21] MEDS: Aspirin 325 mg EC Tablets PO SCH (10:36)
[2017-10-21] MEDS: Enoxaparin 30 mg Syringe SC SCH (10:37)
--- NOTE | 2017-10-21 17:28 | CP.PCM.PN ---
Subjective - Date & Time of Evaluation Date of Evaluation: 10/21/17 Time of Evaluation: 09:00 - Subjective Subjective: clinically same Objective - Vital Signs/Intake and Output Vital Signs (last 24 hours): Temp Pulse Resp BP Pulse Ox 98.0 F 107 H 20 135/71 99 10/21/17 08:21 10/21/17 08:21 10/21/17 08:21 10/21/17 08:21 10/21/17 08:21 Intake and Output: 10/21/17 10/21/17 06:59 18:59 Intake Total 350 Output Total 250 Balance 100 - Medications Medications: Current Medications Amlodipine Besylate (Norvasc) 10 mg PO DAILY [facility] Last Admin: 10/21/17 10:37 Dose: 10 mg Aspirin (Ecotrin) 325 mg PO DAILY [facility] Last Admin: 10/21/17 10:36 Dose: 325 mg Calcitriol (Rocaltrol) 0.25 mcg PO DAILY [facility] Last Admin: 10/21/17 10:35 Dose: 0.25 mcg Clonidine HCl (Catapres) 0.1 mg PO BID [facility] Last Admin: 10/21/17 10:35 Dose: 0.1 mg Dextrose (Dextrose 50% Inj) 0 ml IV STAT PRN; Protocol PRN Reason: Hypoglycemia Protocol Dextrose (Glutose 15) 0 gm PO ONCE PRN; Protocol PRN Reason: Hypoglycemia Protocol Enoxaparin Sodium (Lovenox) 30 mg SC DAILY [facility] Last Admin: 10/21/17 10:37 Dose: 30 mg Glimepiride (Amaryl) 4 mg PO BID [facility] Last Admin: 10/21/17 10:35 Dose: 4 mg Glucagon (Glucagen Diagnostic Kit) 0 mg IM STAT PRN; Protocol PRN Reason: Hypoglycemia Protocol Dextrose (Dextrose 5% In Water 1000 Ml) 1,000 mls @ 0 mls/hr IV .Q0M PRN; Protocol; Per Protocol PRN Reason: Hypoglycemia Protocol Insulin Aspart (Novolog) 0 unit SC [facility] PRN Reason: Protocol Last Admin: 10/21/17 12:12 Dose: 4 unit Isosorbide Mononitrate (Imdur Er) 90 mg PO DAILY [facility] Last Admin: 10/21/17 10:35 Dose: 90 mg Metoprolol Tartrate (Lopressor) 50 mg PO DAILY [facility] Last Admin: 05/13/18 10:35 Dose: 50 mg Pantoprazole Sodium (Protonix Ec Tab) 40 mg PO DAILY [facility] Last Admin: 10/21/17 10:35 Dose: 40 mg Rosuvastatin Calcium (Crestor) 10 mg PO HS [facility] Last Admin: 10/20/17 22:26 Dose: 10 mg Tamsulosin HCl (Flomax) 0.4 mg PO DAILY [facility] Last Admin: 10/21/17 10:36 Dose: 0.4 mg - Labs Labs: 10/21/17 07:40 10/21/17 07:40 - Constitutional Appears: Well - Head Exam Head Exam: ATRAUMATIC, NORMAL INSPECTION, NORMOCEPHALIC - Eye Exam Eye Exam: EOMI, Normal appearance, PERRL Pupil Exam: NORMAL ACCOMODATION, PERRL - ENT Exam ENT Exam: Mucous Membranes Moist, Normal Exam - Neck Exam Neck Exam: Full ROM, Normal Inspection. absent: Lymphadenopathy - Respiratory Exam Respiratory Exam: Decreased Breath Sounds - Cardiovascular Exam Cardiovascular Exam: REGULAR RHYTHM, +S1, +S2 - GI/Abdominal Exam GI & Abdominal Exam: Soft, Diminished Bowel Sounds - Rectal Exam Rectal Exam: Deferred Assessment and Plan (1) CHF (congestive heart failure) Status: Acute
[2017-10-22] MEDS: (Novolog) Insulin Aspart, Recombinant 100 u/ml 10 ml vial SC SCH ×4 (06:48→21:27)
[2017-10-22 08:04] LABS: BASO # 0.1 K/uL (0.0-0.2); BASO % 0.9 % (0.0-2.0); EOS # 0.3 K/uL (0.0-0.7); EOS % 4.6 % (0.0-4.0); HEMOGLOBIN 8.4 g/dL (12.0-18.0); LYMPH # 1.6 K/uL (1.0-4.3); LYMPH % 23.8 % (20.0-40.0); MEAN CELL VOLUME 80.8 fL (80.0-94.0); MEAN CORPUSCULAR HGB CONC 33.4 g/dL (33.0-37.0); MEAN PLATELET VOLUME 7.5 fL (7.2-11.7); MONO # 0.8 K/uL (0.0-0.8); MONO % 11.5 % (0.0-10.0); NEUT # 3.9 K/uL (1.8-7.0); NEUT % 59.2 % (50.0-75.0); NRBC % 0.1 % (0.0-2.0); RBC 3.13 Mil/uL (4.40-5.90); RED CELL DISTRIBUTION WIDTH 13.5 % (11.5-14.5); WHITE BLOOD COUNT 6.6 K/uL (4.8-10.8)
--- NOTE | 2017-10-22 08:12 | CP.PCM.PN ---
<Gigi Markham - Last Filed: 10/22/17 17:45> Subjective - Date & Time of Evaluation Date of Evaluation: 10/22/17 Time of Evaluation: 08:00 - Subjective Subjective: PGY-[address] Romero's service: Pt seen and examined at bedside. Nursing reports no acute events overnight. Patient reports his breathing has improved and his legs are back to their base- line, with pitting edema to the knee. He is able to walk to the bathroom without becoming SOB. He has been working with PT. Currently denies chest pain, SOB, abdominal pain, or any additional acute complaints. Objective - Vital Signs/Intake and Output Vital Signs (last 24 hours): Temp Pulse Resp BP Pulse Ox 98.2 F 72 20 162/91 H 95 10/21/17 23:45 10/22/17 01:00 10/21/17 23:45 10/22/17 04:00 10/21/17 23:45 Intake and Output: 10/22/17 10/22/17 06:59 18:59 Intake Total 300 Balance 300 - Medications Medications: Current Medications Amlodipine Besylate (Norvasc) 10 mg PO DAILY [facility] Last Admin: 10/21/17 10:37 Dose: 10 mg Aspirin (Ecotrin) 325 mg PO DAILY [facility] Last Admin: 10/21/17 10:36 Dose: 325 mg Calcitriol (Rocaltrol) 0.25 mcg PO DAILY [facility] Last Admin: 10/21/17 10:35 Dose: 0.25 mcg Clonidine HCl (Catapres) 0.1 mg PO BID [facility] Last Admin: 10/21/17 19:00 Dose: 0.1 mg Dextrose (Dextrose 50% Inj) 0 ml IV STAT PRN; Protocol PRN Reason: Hypoglycemia Protocol Dextrose (Glutose 15) 0 gm PO ONCE PRN; Protocol PRN Reason: Hypoglycemia Protocol Enoxaparin Sodium (Lovenox) 30 mg SC DAILY [facility] Last Admin: 10/21/17 10:37 Dose: 30 mg Glimepiride (Amaryl) 4 mg PO BID [facility] Last Admin: 10/21/17 18:13 Dose: 4 mg Glucagon (Glucagen Diagnostic Kit) 0 mg IM STAT PRN; Protocol PRN Reason: Hypoglycemia Protocol Dextrose (Dextrose 5% In Water 1000 Ml) 1,000 mls @ 0 mls/hr IV .Q0M PRN; Protocol; Per Protocol PRN Reason: Hypoglycemia Protocol Insulin Aspart (Novolog) 0 unit SC [facility] PRN Reason: Protocol Last Admin: 10/22/17 06:48 Dose: Not Given Isosorbide Mononitrate (Imdur Er) 90 mg PO DAILY [facility] Last Admin: 10/21/17 10:35 Dose: 90 mg Metoprolol Tartrate (Lopressor) 50 mg PO DAILY [facility] Last Admin: 10/21/17 10:35 Dose: 50 mg Pantoprazole Sodium (Protonix Ec Tab) 40 mg PO DAILY [facility] Last Admin: 10/21/17 10:35 Dose: 40 mg Rosuvastatin Calcium (Crestor) 10 mg PO HS [facility] Last Admin: 10/21/17 21:33 Dose: 10 mg Tamsulosin HCl (Flomax) 0.4 mg PO DAILY [facility] Last Admin: 10/21/17 10:36 Dose: 0.4 mg - Labs Labs: 10/21/17 07:40 10/21/17 07:40 - Additional Findings Additional findings: - Constitutional Appears: Non-toxic, No Acute Distress - Head Exam Head Exam: ATRAUMATIC, NORMAL INSPECTION - Eye Exam Eye Exam: EOMI - ENT Exam ENT Exam: Mucous Membranes Moist - Neck Exam Neck Exam: Full ROM, Normal Inspection - Respiratory Exam Respiratory Exam: absent: Respiratory Distress - Cardiovascular Exam Cardiovascular Exam: Regular Rate, +S1, +S2 - GI/Abdominal Exam GI & Abdominal Exam: Soft, Normal Bowel Sounds. absent: Tenderness - Extremities Exam Extremities Exam: 2+ pitting edema bilaterally (just below the knees) - Back Exam Back Exam: NORMAL INSPECTION - Neurological Exam Neurological Exam: Alert, Awake, Oriented x3 - Psychiatric Exam Psychiatric exam: Normal Affect, Normal Mood - Skin Skin Exam: Dry, Intact, Normal Color, Warm Assessment and Plan - Assessment and Plan (Free Text) Assessment: Acute on Chronic Diastolic CHF (congestive heart failure) 10/22: Restart Lasix 40mg IVP qD (today and tomorrow). Patient will be D/C'd with home med Lasix 40mg PO qD. Continue Clonidin, Imdur, Metoprolol. Breathing improved. Per Dr. Valdez, may need to decrease Metoprolol. Admit to Tele Cardio consult, Dr. Valdez, f/u recs likely chronic diastolic dysfunction -> recommend addition of clonidine. added Imdur ECHO (5/3/18): EF 60-65%, LA moderately dilated, mild concentric LVH, diastolic dysfunction grade one, no pericardial effusion. EKG (10/11/17): NSR @ 60bpm, 2nd Degree AV block Type I, Nonspecific T wave abnormality CXR (10/15/17): Possible RLL infiltrate. Small b/l pleural effusion - f/u repeat CXR BNP 2980 Trop negative throughout course Catapres) 0.1 mg PO BID [facility] HOLD Lasix) 40 mg IVP DAILY [facility] Imdur Er) 90 mg PO DAILY [facility] Lopressor) 50 mg PO DAILY [facility] Acute on Chronic Kidney Disease 10/22: BUN 56 / Cr 3.8. Stable (admitted with BUN 30/Cr 3.1) Current GFR 18 and BUN 44 / Cr 4.0 Patient admitted with GFR 24 and BUN/Cr of 30/3.1 10/18: continuing to hold lasix 10/16: Stop lasix as Cr 4.0. f/u 24hr urine collection -Renal ultrasound - No significant or acute findings to account for/ related to the clinical presentation. No significant interval change compared to the prior examination(s). Mobitz Type I, 2nd Degree AV block EKG (10/11/17): NSR @ 60bpm, 2nd Degree AV block Type I, Nonspecific T wave abnormality Anemia -HGB 8.6 today, much improved -likely secondary to CKD Pleural effusion 10/15: portable CXR with small b/l pleural effusion. likely due to volume status. improving CXR 10/11 with RL PNA an mild CHF. likely 2/2 CHF fluid overload Hypertension 10/22: Elevated at 176/91 Elevated this AM Norvasc 10mg PO Daily Clonidine 0.1 mg PO BID [facility] 90 mg PO DAILY [facility] Lopressor 50 mg PO DAILY [facility] Diabetes -continue ISS - Amaryl 4mg PO BID Hypoglycemia protocol Hyperlipidemia -continue crestor PO HS Prophylaxis -continue lovenox 30mg SC daily (renal dosage) -continue protonix PT: recommend ALEJANDRO Case discussed with attending. All medical management as per Dr. Nixon Romero. <Scooter Romero - Last Filed: 10/22/17 19:48> Objective - Vital Signs/Intake and Output Vital Signs (last 24 hours): Temp Pulse Resp BP Pulse Ox 98.0 F 61 18 145/75 100 10/22/17 15:20 10/22/17 15:20 10/22/17 15:20 10/22/17 16:56 10/22/17 15:20 - Medications Medications: Current Medications Amlodipine Besylate (Norvasc) 10 mg PO DAILY [facility] Last Admin: 10/22/17 09:55 Dose: 10 mg Aspirin (Ecotrin) 325 mg PO DAILY [facility] Last Admin: 10/22/17 09:55 Dose: 325 mg Calcitriol (Rocaltrol) 0.25 mcg PO DAILY [facility] Last Admin: 10/22/17 09:55 Dose: 0.25 mcg Clonidine HCl (Catapres) 0.1 mg PO BID [facility] Last Admin: 10/22/17 09:55 Dose: 0.1 mg Dextrose (Dextrose 50% Inj) 0 ml IV STAT PRN; Protocol PRN Reason: Hypoglycemia Protocol Dextrose (Glutose 15) 0 gm PO ONCE PRN; Protocol PRN Reason: Hypoglycemia Protocol Enoxaparin Sodium (Lovenox) 30 mg SC DAILY [facility] Last Admin: 10/22/17 09:56 Dose: 30 mg Furosemide (Lasix) 40 mg IVP DAILY [facility] Last Admin: 10/22/17 16:56 Dose: 40 mg Glimepiride (Amaryl) 4 mg PO BID [facility] Last Admin: 10/22/17 18:18 Dose: 4 mg Glucagon (Glucagen Diagnostic Kit) 0 mg IM STAT PRN; Protocol PRN Reason: Hypoglycemia Protocol Dextrose (Dextrose 5% In Water 1000 Ml) 1,000 mls @ 0 mls/hr IV .Q0M PRN; Protocol; Per Protocol PRN Reason: Hypoglycemia Protocol Insulin Aspart (Novolog) 0 unit SC [facility] PRN Reason: Protocol Last Admin: 10/22/17 18:17 Dose: 2 unit Isosorbide Mononitrate (Imdur Er) 90 mg PO DAILY [facility] Last Admin: 10/22/17 10:02 Dose: 90 mg Metoprolol Tartrate (Lopressor) 50 mg PO DAILY [facility] Last Admin: 10/22/17 09:56 Dose: 50 mg Pantoprazole Sodium (Protonix Ec Tab) 40 mg PO DAILY [facility] Last Admin: 10/22/17 09:55 Dose: 40 mg Rosuvastatin Calcium (Crestor) 10 mg PO HS [facility] Last Admin: 10/21/17 21:33 Dose: 10 mg Tamsulosin HCl (Flomax) 0.4 mg PO DAILY [facility] Last Admin: 10/22/17 09:56 Dose: 0.4 mg - Labs Labs: 10/22/17 07:58 10/22/17 07:58 Assessment and Plan (1) CHF (congestive heart failure) Status: Acute Attending/Attestation - Attestation I have personally seen and examined this patient.: Yes I have fully participated in the care of the patient.: Yes I have reviewed all pertinent clinical information, including history, physical exam and plan: Yes Notes (Text): 10/22/17 19:48 case seen and d.w staff and resident, concurred with finding and management.
[2017-10-22 08:52] LABS: ALB/GLOB RATIO 0.8 (1.0-2.1); ALBUMIN 3.5 g/dL (3.5-5.0); CALCIUM 8.8 mg/dl (8.6-10.4)
[2017-10-22] MEDS: Aspirin 325 mg EC Tablets PO SCH (09:55)
[2017-10-22] MEDS: Pantoprazole 40 mg EC Tab PO SCH (09:55)
[2017-10-22] MEDS: Enoxaparin 30 mg Syringe SC SCH (09:56)
--- NOTE | 2017-10-22 19:05 | CP.PCM.PN ---
Subjective - Date & Time of Evaluation Date of Evaluation: 10/22/17 Time of Evaluation: 19:00 - Subjective Subjective: pateint has no new chest pain. Objective - Vital Signs/Intake and Output Vital Signs (last 24 hours): Temp Pulse Resp BP Pulse Ox 98.6 F 87 20 145/75 98 10/22/17 08:28 10/22/17 08:28 10/22/17 08:28 10/22/17 16:56 10/22/17 08:28 - Medications Medications: Current Medications Amlodipine Besylate (Norvasc) 10 mg PO DAILY [facility] Last Admin: 10/22/17 09:55 Dose: 10 mg Aspirin (Ecotrin) 325 mg PO DAILY [facility] Last Admin: 10/22/17 09:55 Dose: 325 mg Calcitriol (Rocaltrol) 0.25 mcg PO DAILY [facility] Last Admin: 10/22/17 09:55 Dose: 0.25 mcg Clonidine HCl (Catapres) 0.1 mg PO BID [facility] Last Admin: 10/22/17 09:55 Dose: 0.1 mg Dextrose (Dextrose 50% Inj) 0 ml IV STAT PRN; Protocol PRN Reason: Hypoglycemia Protocol Dextrose (Glutose 15) 0 gm PO ONCE PRN; Protocol PRN Reason: Hypoglycemia Protocol Enoxaparin Sodium (Lovenox) 30 mg SC DAILY [facility] Last Admin: 10/22/17 09:56 Dose: 30 mg Furosemide (Lasix) 40 mg IVP DAILY [facility] Last Admin: 10/22/17 16:56 Dose: 40 mg Glimepiride (Amaryl) 4 mg PO BID [facility] Last Admin: 10/22/17 18:18 Dose: 4 mg Glucagon (Glucagen Diagnostic Kit) 0 mg IM STAT PRN; Protocol PRN Reason: Hypoglycemia Protocol Dextrose (Dextrose 5% In Water 1000 Ml) 1,000 mls @ 0 mls/hr IV .Q0M PRN; Protocol; Per Protocol PRN Reason: Hypoglycemia Protocol Insulin Aspart (Novolog) 0 unit SC [facility] PRN Reason: Protocol Last Admin: 10/22/17 18:17 Dose: 2 unit Isosorbide Mononitrate (Imdur Er) 90 mg PO DAILY [facility] Last Admin: 10/22/17 10:02 Dose: 90 mg Metoprolol Tartrate (Lopressor) 50 mg PO DAILY [facility] Last Admin: 10/22/17 09:56 Dose: 50 mg Pantoprazole Sodium (Protonix Ec Tab) 40 mg PO DAILY [facility] Last Admin: 10/22/17 09:55 Dose: 40 mg Rosuvastatin Calcium (Crestor) 10 mg PO HS [facility] Last Admin: 10/21/17 21:33 Dose: 10 mg Tamsulosin HCl (Flomax) 0.4 mg PO DAILY [facility] Last Admin: 10/22/17 09:56 Dose: 0.4 mg - Labs Labs: 10/22/17 07:58 10/22/17 07:58 - Constitutional Appears: Non-toxic - Head Exam Head Exam: NORMAL INSPECTION - Eye Exam Eye Exam: Normal appearance - ENT Exam ENT Exam: Mucous Membranes Moist - Neck Exam Neck Exam: Full ROM - Respiratory Exam Respiratory Exam: NORMAL BREATHING PATTERN - Cardiovascular Exam Cardiovascular Exam: REGULAR RHYTHM - GI/Abdominal Exam GI & Abdominal Exam: Normal Bowel Sounds - Rectal Exam Rectal Exam: Deferred - Extremities Exam Extremities Exam: Pedal Edema - Back Exam Back Exam: NORMAL INSPECTION - Neurological Exam Neurological Exam: Alert - Psychiatric Exam Psychiatric exam: Normal Affect - Skin Skin Exam: Normal Color Assessment and Plan (1) CHF (congestive heart failure) Assessment & Plan: patient will need improved volume control. He will benefit from lasix therapy, however will have to monitor creatinine. Status: Acute
--- NOTE | 2017-10-22 19:50 | CP.PCM.PN ---
Subjective - Date & Time of Evaluation Date of Evaluation: 10/22/17 Time of Evaluation: 13:05 - Subjective Subjective: Clinical same Objective - Vital Signs/Intake and Output Vital Signs (last 24 hours): Temp Pulse Resp BP Pulse Ox 98.0 F 61 18 145/75 100 10/22/17 15:20 10/22/17 15:20 10/22/17 15:20 10/22/17 16:56 10/22/17 15:20 - Medications Medications: Current Medications Amlodipine Besylate (Norvasc) 10 mg PO DAILY [facility] Last Admin: 10/22/17 09:55 Dose: 10 mg Aspirin (Ecotrin) 325 mg PO DAILY [facility] Last Admin: 10/22/17 09:55 Dose: 325 mg Calcitriol (Rocaltrol) 0.25 mcg PO DAILY [facility] Last Admin: 10/22/17 09:55 Dose: 0.25 mcg Clonidine HCl (Catapres) 0.1 mg PO BID [facility] Last Admin: 10/22/17 09:55 Dose: 0.1 mg Dextrose (Dextrose 50% Inj) 0 ml IV STAT PRN; Protocol PRN Reason: Hypoglycemia Protocol Dextrose (Glutose 15) 0 gm PO ONCE PRN; Protocol PRN Reason: Hypoglycemia Protocol Enoxaparin Sodium (Lovenox) 30 mg SC DAILY [facility] Last Admin: 10/22/17 09:56 Dose: 30 mg Furosemide (Lasix) 40 mg IVP DAILY [facility] Last Admin: 10/22/17 16:56 Dose: 40 mg Glimepiride (Amaryl) 4 mg PO BID [facility] Last Admin: 10/22/17 18:18 Dose: 4 mg Glucagon (Glucagen Diagnostic Kit) 0 mg IM STAT PRN; Protocol PRN Reason: Hypoglycemia Protocol Dextrose (Dextrose 5% In Water 1000 Ml) 1,000 mls @ 0 mls/hr IV .Q0M PRN; Protocol; Per Protocol PRN Reason: Hypoglycemia Protocol Insulin Aspart (Novolog) 0 unit SC [facility] PRN Reason: Protocol Last Admin: 10/22/17 18:17 Dose: 2 unit Isosorbide Mononitrate (Imdur Er) 90 mg PO DAILY [facility] Last Admin: 10/22/17 10:02 Dose: 90 mg Metoprolol Tartrate (Lopressor) 50 mg PO DAILY [facility] Last Admin: 10/22/17 09:56 Dose: 50 mg Pantoprazole Sodium (Protonix Ec Tab) 40 mg PO DAILY [facility] Last Admin: 10/22/17 09:55 Dose: 40 mg Rosuvastatin Calcium (Crestor) 10 mg PO HS [facility] Last Admin: 10/21/17 21:33 Dose: 10 mg Tamsulosin HCl (Flomax) 0.4 mg PO DAILY [facility] Last Admin: 10/22/17 09:56 Dose: 0.4 mg - Labs Labs: 10/22/17 07:58 10/22/17 07:58 - Constitutional Appears: Well - Head Exam Head Exam: NORMAL INSPECTION - Eye Exam Eye Exam: Normal appearance - ENT Exam ENT Exam: Mucous Membranes Moist - Neck Exam Neck Exam: Normal Inspection - Respiratory Exam Respiratory Exam: Decreased Breath Sounds - Cardiovascular Exam Cardiovascular Exam: REGULAR RHYTHM - GI/Abdominal Exam GI & Abdominal Exam: Diminished Bowel Sounds - Rectal Exam Rectal Exam: Deferred Assessment and Plan (1) CHF (congestive heart failure) Status: Acute - Assessment and Plan (Free Text) Assessment: Assessment: Acute on Chronic Diastolic CHF (congestive heart failure) 10/22: Restart Lasix 40mg IVP qD (today and tomorrow). Patient will be D/C'd with home med Lasix 40mg PO qD. Continue Clonidin, Imdur, Metoprolol. Breathing improved. Per Dr. Valdez, may need to decrease Metoprolol. Admit to Tele Cardio consult, Dr. Valdez, f/u recs likely chronic diastolic dysfunction -> recommend addition of clonidine. added Imdur ECHO (10/11/17): EF 60-65%, LA moderately dilated, mild concentric LVH, diastolic dysfunction grade one, no pericardial effusion. EKG (10/11/17): NSR @ 60bpm, 2nd Degree AV block Type I, Nonspecific T wave abnormality CXR (10/15/17): Possible RLL infiltrate. Small b/l pleural effusion - f/u repeat CXR BNP 2980 Trop negative throughout course Catapres) 0.1 mg PO BID [facility] HOLD Lasix) 40 mg IVP DAILY [facility] Imdur Er) 90 mg PO DAILY [facility] Lopressor) 50 mg PO DAILY [facility] Acute on Chronic Kidney Disease 10/22: BUN 56 / Cr 3.8. Stable (admitted with BUN 30/Cr 3.1) Current GFR 18 and BUN 44 / Cr 4.0 Patient admitted with GFR 24 and BUN/Cr of 30/3.1 10/18: continuing to hold lasix 10/16: Stop lasix as Cr 4.0. f/u 24hr urine collection -Renal ultrasound - No significant or acute findings to account for/ related to the clinical presentation. No significant interval change compared to the prior examination(s). Mobitz Type I, 2nd Degree AV block EKG (10/11/17): NSR @ 60bpm, 2nd Degree AV block Type I, Nonspecific T wave abnormality Anemia -HGB 8.6 today, much improved -likely secondary to CKD Pleural effusion 10/15: portable CXR with small b/l pleural effusion. likely due to volume status. improving CXR 10/11 with RL PNA an mild CHF. likely 2/2 CHF fluid overload Hypertension 10/22: Elevated at 176/91 Elevated this AM Norvasc 10mg PO Daily Clonidine 0.1 mg PO BID [facility] 90 mg PO DAILY [facility] Lopressor 50 mg PO DAILY [facility] Diabetes -continue ISS - Amaryl 4mg PO BID Hypoglycemia protocol Hyperlipidemia -continue crestor PO HS Prophylaxis -continue lovenox 30mg SC daily (renal dosage) -continue protonix PT: recommend ALEJANDRO
[2017-10-23 07:21] LABS: BASO # 0.1 K/uL (0.0-0.2); BASO % 0.9 % (0.0-2.0); EOS # 0.2 K/uL (0.0-0.7); EOS % 2.4 % (0.0-4.0); HEMOGLOBIN 9.1 g/dL (12.0-18.0); LYMPH # 1.4 K/uL (1.0-4.3); MEAN CELL VOLUME 80.3 fL (80.0-94.0); MEAN CORPUSCULAR HEMOGLOBIN 27.4 pg (27.0-31.0); MEAN CORPUSCULAR HGB CONC 34.1 g/dL (33.0-37.0); MEAN PLATELET VOLUME 7.5 fL (7.2-11.7); MONO # 0.8 K/uL (0.0-0.8); MONO % 9.3 % (0.0-10.0); NEUT # 6.1 K/uL (1.8-7.0); NEUT % 71.4 % (50.0-75.0); RBC 3.33 Mil/uL (4.40-5.90); RED CELL DISTRIBUTION WIDTH 13.7 % (11.5-14.5); WHITE BLOOD COUNT 8.6 K/uL (4.8-10.8)
[2017-10-23 07:45] LABS: ALB/GLOB RATIO 0.8 (1.0-2.1); ALBUMIN 3.6 g/dL (3.5-5.0); CALCIUM 9.1 mg/dl (8.6-10.4)
--- NOTE | 2017-10-23 08:09 | CP.PCM.PN ---
<Gigi Markham - Last Filed: 10/23/17 18:34> Subjective - Date & Time of Evaluation Date of Evaluation: 10/23/17 Time of Evaluation: 07:00 - Subjective Subjective: PGY-[address] Romero's service: Pt seen and examined at bedside. Nursing reports no acute events overnight. Patient would like to go home, he is refusing A[facility]. He states that his LE swelling waxes and wanes. Today, he is back on Lasix 40mg IVP (day 2), and his LE edema is at baseline. He will be discharged on his home dose of Lasix 40mg PO qD. His breathing has improved, however this is with nasal cannula. NC will be stopped and his breathing reassessed. Otherwise, he is able to walk to the bathroom without becoming SOB. He has been working with PT. Currently denies chest pain, SOB, abdominal pain, or any additional acute complaints. Objective - Vital Signs/Intake and Output Vital Signs (last 24 hours): Temp Pulse Resp BP Pulse Ox 97.7 F 52 L 20 147/75 98 10/22/17 23:45 10/23/17 01:36 10/22/17 23:45 10/22/17 23:45 10/22/17 23:45 Intake and Output: 10/23/17 10/23/17 06:59 18:59 Output Total 450 Balance -450 - Medications Medications: Current Medications Amlodipine Besylate (Norvasc) 10 mg PO DAILY [facility] Last Admin: 10/22/17 09:55 Dose: 10 mg Aspirin (Ecotrin) 325 mg PO DAILY [facility] Last Admin: 10/22/17 09:55 Dose: 325 mg Calcitriol (Rocaltrol) 0.25 mcg PO DAILY [facility] Last Admin: 10/22/17 09:55 Dose: 0.25 mcg Clonidine HCl (Catapres) 0.1 mg PO BID [facility] Last Admin: 10/22/17 21:27 Dose: 0.1 mg Dextrose (Dextrose 50% Inj) 0 ml IV STAT PRN; Protocol PRN Reason: Hypoglycemia Protocol Dextrose (Glutose 15) 0 gm PO ONCE PRN; Protocol PRN Reason: Hypoglycemia Protocol Enoxaparin Sodium (Lovenox) 30 mg SC DAILY [facility] Last Admin: 10/22/17 09:56 Dose: 30 mg Furosemide (Lasix) 40 mg IVP DAILY [facility] Last Admin: 10/22/17 16:56 Dose: 40 mg Glimepiride (Amaryl) 4 mg PO BID [facility] Last Admin: 10/22/17 18:18 Dose: 4 mg Glucagon (Glucagen Diagnostic Kit) 0 mg IM STAT PRN; Protocol PRN Reason: Hypoglycemia Protocol Dextrose (Dextrose 5% In Water 1000 Ml) 1,000 mls @ 0 mls/hr IV .Q0M PRN; Protocol; Per Protocol PRN Reason: Hypoglycemia Protocol Insulin Aspart (Novolog) 0 unit SC ACHS [facility] PRN Reason: Protocol Last Admin: 10/22/17 21:27 Dose: Not Given Isosorbide Mononitrate (Imdur Er) 90 mg PO DAILY [facility] Last Admin: 10/22/17 10:02 Dose: 90 mg Metoprolol Tartrate (Lopressor) 50 mg PO DAILY [facility] Last Admin: 10/22/17 09:56 Dose: 50 mg Pantoprazole Sodium (Protonix Ec Tab) 40 mg PO DAILY [facility] Last Admin: 10/22/17 09:55 Dose: 40 mg Rosuvastatin Calcium (Crestor) 10 mg PO HS [facility] Last Admin: 10/22/17 21:27 Dose: 10 mg Tamsulosin HCl (Flomax) 0.4 mg PO DAILY [facility] Last Admin: 10/22/17 09:56 Dose: 0.4 mg - Labs Labs: 10/23/17 07:10 10/23/17 07:10 - Additional Findings Additional findings: - Constitutional Appears: Non-toxic, No Acute Distress - Head Exam Head Exam: ATRAUMATIC, NORMAL INSPECTION - Eye Exam Eye Exam: EOMI - ENT Exam ENT Exam: Mucous Membranes Moist - Neck Exam Neck Exam: Full ROM, Normal Inspection - Respiratory Exam Respiratory Exam: absent: Respiratory Distress - Cardiovascular Exam Cardiovascular Exam: Regular Rate, +S1, +S2 - GI/Abdominal Exam GI & Abdominal Exam: Soft, Normal Bowel Sounds. absent: Tenderness - Extremities Exam Extremities Exam: 2+ pitting edema bilaterally (just below the knees) - Back Exam Back Exam: NORMAL INSPECTION - Neurological Exam Neurological Exam: Alert, Awake, Oriented x3 - Psychiatric Exam Psychiatric exam: Normal Affect, Normal Mood - Skin Skin Exam: Dry, Intact, Normal Color, Warm Assessment and Plan - Assessment and Plan (Free Text) Assessment: Acute on Chronic Diastolic CHF (congestive heart failure) 10/23: Inc Lasix IV to 40mg BID. Start Metolazone 5mg PO qD. Patient will be discharged with Lasix 80mg PO qD + Metolazone 5mg PO qD. 10/22: Restart Lasix 40mg IVP qD (today and tomorrow). Patient will be D/C'd with home med Lasix 40mg PO qD. Continue Clonidin, Imdur, Metoprolol. Breathing improved. Per Dr. Valdez, may need to decrease Metoprolol. Admit to Tele Cardio consult, Dr. Valdez, f/u recs likely chronic diastolic dysfunction -> recommend addition of clonidine. added Imdur ECHO (10/11/17): EF 60-65%, LA moderately dilated, mild concentric LVH, diastolic dysfunction grade one, no pericardial effusion. EKG (10/11/17): NSR @ 60bpm, 2nd Degree AV block Type I, Nonspecific T wave abnormality CXR (10/15/17): Possible RLL infiltrate. Small b/l pleural effusion - f/u repeat CXR BNP 2980 Trop negative throughout course Catapres) 0.1 mg PO BID [facility] Lasix) 40 mg IVP DAILY [facility] Imdur Er) 90 mg PO DAILY [facility] Lopressor) 50 mg PO DAILY [facility] Acute on Chronic Kidney Disease 10/23: Bun 63 / Cr 3.9. Dr. Nixon Romero aware, continue Lasix for diuresis. 10/22: BUN 56 / Cr 3.8. Stable (admitted with BUN 30/Cr 3.1) Current GFR 18 and BUN 44 / Cr 4.0 Patient admitted with GFR 24 and BUN/Cr of 30/3.1 10/18: continuing to hold lasix 10/16: Stop lasix as Cr 4.0. f/u 24hr urine collection -Renal ultrasound - No significant or acute findings to account for/ related to the clinical presentation. No significant interval change compared to the prior examination(s). Dyspnea on Exertion 10/23: Patient with dyspnea on exertion. He can only walk several steps out of his room before deconditioning and becoming SOB. O2 Sat without NC - resting (93%); (standing 96%); after ambulating 10 steps to exertion (89%) Patient may benefit from Home Oxygen? ABG: PO2 66L ; O2 Sat 94L Mobitz Type I, 2nd Degree AV block EKG (10/11/17): NSR @ 60bpm, 2nd Degree AV block Type I, Nonspecific T wave abnormality Anemia 10/23: Hgb uptrending, 9.1 today. -HGB 8.6 today, much improved -likely secondary to CKD Pleural effusion 10/19: bibasilar patchy opacity, small b/l pleural effusion 10/15: portable CXR with small b/l pleural effusion. likely due to volume status. improving CXR 10/11 with RL PNA an mild CHF. likely 2/2 CHF fluid overload Hypertension 10/22: Elevated at 176/91 Elevated this AM Norvasc 10mg PO Daily Clonidine 0.1 mg PO BID Imdur Er 90 mg PO DAILY [facility] Lopressor 50 mg PO DAILY [facility] Diabetes -continue ISS - Amaryl 4mg PO BID Hypoglycemia protocol Hyperlipidemia -continue crestor PO HS Prophylaxis -continue lovenox 30mg SC daily (renal dosage) -continue protonix Disposition: PT recommends [facility], however patient and refusing. They are open to home PT. Patient will be discharged with Lasix 80mg PO qD + Metolazone 5mg PO qD. Likely DC 10/24 Case discussed with attending. All medical management as per Dr. Nixon Romero. <Scooter Romero S - Last Filed: 10/23/17 19:30> Objective - Vital Signs/Intake and Output Vital Signs (last 24 hours): Temp Pulse Resp BP Pulse Ox 98.4 F 70 20 152/74 H 92 L 10/23/17 15:00 10/23/17 15:00 10/23/17 15:00 10/23/17 17:14 10/23/17 15:00 - Medications Medications: Current Medications Amlodipine Besylate (Norvasc) 10 mg PO DAILY [facility] Last Admin: 10/23/17 10:08 Dose: 10 mg Aspirin (Ecotrin) 325 mg PO DAILY [facility] Last Admin: 10/23/17 10:09 Dose: 325 mg Calcitriol (Rocaltrol) 0.25 mcg PO DAILY [facility] Last Admin: 10/23/17 10:09 Dose: 0.25 mcg Clonidine HCl (Catapres) 0.1 mg PO BID [facility] Last Admin: 10/23/17 10:11 Dose: 0.1 mg Dextrose (Dextrose 50% Inj) 0 ml IV STAT PRN; Protocol PRN Reason: Hypoglycemia Protocol Dextrose (Glutose 15) 0 gm PO ONCE PRN; Protocol PRN Reason: Hypoglycemia Protocol Enoxaparin Sodium (Lovenox) 30 mg SC DAILY [facility] Last Admin: 10/23/17 10:10 Dose: 30 mg Furosemide (Lasix) 40 mg IVP BID [facility] Glimepiride (Amaryl) 4 mg PO BID [facility] Last Admin: 10/23/17 19:21 Dose: 4 mg Glucagon (Glucagen Diagnostic Kit) 0 mg IM STAT PRN; Protocol PRN Reason: Hypoglycemia Protocol Dextrose (Dextrose 5% In Water 1000 Ml) 1,000 mls @ 0 mls/hr IV .Q0M PRN; Protocol; Per Protocol PRN Reason: Hypoglycemia Protocol Insulin Aspart (Novolog) 0 unit SC ACHS [facility] PRN Reason: Protocol Last Admin: 10/23/17 18:15 Dose: 4 unit Isosorbide Mononitrate (Imdur Er) 90 mg PO DAILY [facility] Last Admin: 10/23/17 10:09 Dose: 90 mg Metolazone (Zaroxolyn) 5 mg PO DAILY [facility] Last Admin: 10/23/17 18:16 Dose: 5 mg Metoprolol Tartrate (Lopressor) 50 mg PO DAILY [facility] Last Admin: 10/23/17 10:09 Dose: 50 mg Pantoprazole Sodium (Protonix Ec Tab) 40 mg PO DAILY [facility] Last Admin: 10/23/17 10:09 Dose: 40 mg Rosuvastatin Calcium (Crestor) 10 mg PO HS [facility] Last Admin: 10/22/17 21:27 Dose: 10 mg Tamsulosin HCl (Flomax) 0.4 mg PO DAILY [facility] Last Admin: 10/23/17 10:09 Dose: 0.4 mg - Labs Labs: 10/23/17 07:10 10/23/17 07:10 Assessment and Plan (1) CHF (congestive heart failure) Status: Acute Attending/Attestation - Attestation I have personally seen and examined this patient.: Yes I have fully participated in the care of the patient.: Yes I have reviewed all pertinent clinical information, including history, physical exam and plan: Yes Notes (Text): 10/23/17 19:30 Assessment: Acute on Chronic Diastolic CHF (congestive heart failure) 10/23: Inc Lasix IV to 40mg BID. Start Metolazone 5mg PO qD. Patient will be discharged with Lasix 80mg PO qD + Metolazone 5mg PO qD. 10/22: Restart Lasix 40mg IVP qD (today and tomorrow). Patient will be D/C'd with home med Lasix 40mg PO qD. Continue Clonidin, Imdur, Metoprolol. Breathing improved. Per Dr. Valdez, may need to decrease Metoprolol. Admit to Tele Cardio consult, Dr. Valdez, f/u recs likely chronic diastolic dysfunction -> recommend addition of clonidine. added Imdur ECHO (10/11/17): EF 60-65%, LA moderately dilated, mild concentric LVH, diastolic dysfunction grade one, no pericardial effusion. EKG (10/11/17): NSR @ 60bpm, 2nd Degree AV block Type I, Nonspecific T wave abnormality CXR (10/15/17): Possible RLL infiltrate. Small b/l pleural effusion - f/u repeat CXR BNP 2980 Trop negative throughout course Catapres) 0.1 mg PO BID [facility] Lasix) 40 mg IVP DAILY [facility] Imdur Er) 90 mg PO DAILY [facility] Lopressor) 50 mg PO DAILY [facility] Acute on Chronic Kidney Disease 10/23: Bun 63 / Cr 3.9. Dr. Nixon Romero aware, continue Lasix for diuresis. 10/22: BUN 56 / Cr 3.8. Stable (admitted with BUN 30/Cr 3.1) Current GFR 18 and BUN 44 / Cr 4.0 Patient admitted with GFR 24 and BUN/Cr of 30/3.1 10/18: continuing to hold lasix 10/16: Stop lasix as Cr 4.0. f/u 24hr urine collection -Renal ultrasound - No significant or acute findings to account for/ related to the clinical presentation. No significant interval change compared to the prior examination(s). Dyspnea on Exertion 10/23: Patient with dyspnea on exertion. He can only walk several steps out of his room before deconditioning and becoming SOB. O2 Sat without NC - resting (93%); (standing 96%); after ambulating 10 steps to exertion (89%) Patient may benefit from Home Oxygen? ABG: PO2 66L ; O2 Sat 94L Mobitz Type I, 2nd Degree AV block EKG (10/11/17): NSR @ 60bpm, 2nd Degree AV block Type I, Nonspecific T wave abnormality Anemia 10/23: Hgb uptrending, 9.1 today. -HGB 8.6 today, much improved -likely secondary to CKD Pleural effusion 10/19: bibasilar patchy opacity, small b/l pleural effusion 10/15: portable CXR with small b/l pleural effusion. likely due to volume status. improving CXR 10/11 with RL PNA an mild CHF. likely 2/2 CHF fluid overload Hypertension 10/22: Elevated at 176/91 Elevated this AM Norvasc 10mg PO Daily Clonidine 0.1 mg PO BID Imdur Er 90 mg PO DAILY [facility] Lopressor 50 mg PO DAILY [facility] Diabetes -continue ISS - Amaryl 4mg PO BID Hypoglycemia protocol Hyperlipidemia -continue crestor PO HS Prophylaxis -continue lovenox 30mg SC daily (renal dosage) -continue protonix Disposition: PT recommends [facility], however patient and refusing. They are open to home PT. Patient will be discharged with Lasix 80mg PO qD + Metolazone 5mg PO qD. Likely DC 10/24
[2017-10-23] MEDS: (Novolog) Insulin Aspart, Recombinant 100 u/ml 10 ml vial SC SCH ×4 (08:19→22:43)
[2017-10-23] MEDS: Pantoprazole 40 mg EC Tab PO SCH (10:09)
[2017-10-23] MEDS: Aspirin 325 mg EC Tablets PO SCH (10:09)
[2017-10-23] MEDS: Enoxaparin 30 mg Syringe SC SCH (10:10)
[2017-10-23 14:51] LABS: ABG ALLEN TEST POS; ARTERIAL BLOOD GAS HCO3 23.7 mmol/L (21-28); ARTERIAL BLOOD GAS HEMOGLOBIN 8.3 g/dL (11.7-17.4); ARTERIAL BLOOD GAS O2 SAT 95.7 % (95-98); ARTERIAL BLOOD GAS PCO2 35 mm/Hg (35-45); ARTERIAL BLOOD GAS PH 7.42 (7.35-7.45); ARTERIAL BLOOD GAS PO2 66 mm/Hg (80-100); ARTERIAL BLOOD GAS TCO2 23.8 mmol/L (22-28)
--- NOTE | 2017-10-23 16:50 | CP.PCM.PN ---
Subjective - Date & Time of Evaluation Date of Evaluation: 10/23/17 Time of Evaluation: 16:49 Objective - Vital Signs/Intake and Output Vital Signs (last 24 hours): Temp Pulse Resp BP Pulse Ox 98.2 F 86 20 160/77 H 100 10/23/17 08:20 10/23/17 08:20 10/23/17 08:20 10/23/17 10:11 10/23/17 08:20 Intake and Output: 10/23/17 10/23/17 06:59 18:59 Output Total 450 Balance -450 - Medications Medications: Current Medications Amlodipine Besylate (Norvasc) 10 mg PO DAILY [facility] Last Admin: 10/23/17 10:08 Dose: 10 mg Aspirin (Ecotrin) 325 mg PO DAILY [facility] Last Admin: 10/23/17 10:09 Dose: 325 mg Calcitriol (Rocaltrol) 0.25 mcg PO DAILY [facility] Last Admin: 10/23/17 10:09 Dose: 0.25 mcg Clonidine HCl (Catapres) 0.1 mg PO BID [facility] Last Admin: 10/23/17 10:11 Dose: 0.1 mg Dextrose (Dextrose 50% Inj) 0 ml IV STAT PRN; Protocol PRN Reason: Hypoglycemia Protocol Dextrose (Glutose 15) 0 gm PO ONCE PRN; Protocol PRN Reason: Hypoglycemia Protocol Enoxaparin Sodium (Lovenox) 30 mg SC DAILY [facility] Last Admin: 10/23/17 10:10 Dose: 30 mg Furosemide (Lasix) 40 mg IVP BID [facility] Glimepiride (Amaryl) 4 mg PO BID [facility] Last Admin: 10/23/17 10:09 Dose: 4 mg Glucagon (Glucagen Diagnostic Kit) 0 mg IM STAT PRN; Protocol PRN Reason: Hypoglycemia Protocol Dextrose (Dextrose 5% In Water 1000 Ml) 1,000 mls @ 0 mls/hr IV .Q0M PRN; Protocol; Per Protocol PRN Reason: Hypoglycemia Protocol Insulin Aspart (Novolog) 0 unit SC ACHS [facility] PRN Reason: Protocol Last Admin: 10/23/17 12:33 Dose: 4 unit Isosorbide Mononitrate (Imdur Er) 90 mg PO DAILY [facility] Last Admin: 10/23/17 10:09 Dose: 90 mg Metolazone (Zaroxolyn) 5 mg PO DAILY [facility] Metoprolol Tartrate (Lopressor) 50 mg PO DAILY [facility] Last Admin: 10/23/17 10:09 Dose: 50 mg Pantoprazole Sodium (Protonix Ec Tab) 40 mg PO DAILY [facility] Last Admin: 10/23/17 10:09 Dose: 40 mg Rosuvastatin Calcium (Crestor) 10 mg PO HS [facility] Last Admin: 10/22/17 21:27 Dose: 10 mg Tamsulosin HCl (Flomax) 0.4 mg PO DAILY [facility] Last Admin: 10/23/17 10:09 Dose: 0.4 mg - Labs Labs: 10/23/17 07:10 10/23/17 07:10
[2017-10-23] MEDS: metOLazone 5 MG TAB PO SCH (18:16)
--- NOTE | 2017-10-23 19:32 | CP.PCM.PN ---
Subjective - Date & Time of Evaluation Date of Evaluation: 10/23/17 Time of Evaluation: 10:00 - Subjective Subjective: clinically same Objective - Vital Signs/Intake and Output Vital Signs (last 24 hours): Temp Pulse Resp BP Pulse Ox 98.4 F 70 20 152/74 H 92 L 10/23/17 15:00 10/23/17 15:00 10/23/17 15:00 10/23/17 17:14 10/23/17 15:00 - Medications Medications: Current Medications Amlodipine Besylate (Norvasc) 10 mg PO DAILY [facility] Last Admin: 10/23/17 10:08 Dose: 10 mg Aspirin (Ecotrin) 325 mg PO DAILY [facility] Last Admin: 10/23/17 10:09 Dose: 325 mg Calcitriol (Rocaltrol) 0.25 mcg PO DAILY [facility] Last Admin: 10/23/17 10:09 Dose: 0.25 mcg Clonidine HCl (Catapres) 0.1 mg PO BID [facility] Last Admin: 10/23/17 10:11 Dose: 0.1 mg Dextrose (Dextrose 50% Inj) 0 ml IV STAT PRN; Protocol PRN Reason: Hypoglycemia Protocol Dextrose (Glutose 15) 0 gm PO ONCE PRN; Protocol PRN Reason: Hypoglycemia Protocol Enoxaparin Sodium (Lovenox) 30 mg SC DAILY [facility] Last Admin: 10/23/17 10:10 Dose: 30 mg Furosemide (Lasix) 40 mg IVP BID [facility] Glimepiride (Amaryl) 4 mg PO BID [facility] Last Admin: 10/23/17 19:21 Dose: 4 mg Glucagon (Glucagen Diagnostic Kit) 0 mg IM STAT PRN; Protocol PRN Reason: Hypoglycemia Protocol Dextrose (Dextrose 5% In Water 1000 Ml) 1,000 mls @ 0 mls/hr IV .Q0M PRN; Protocol; Per Protocol PRN Reason: Hypoglycemia Protocol Insulin Aspart (Novolog) 0 unit SC ACHS [facility] PRN Reason: Protocol Last Admin: 10/23/17 18:15 Dose: 4 unit Isosorbide Mononitrate (Imdur Er) 90 mg PO DAILY [facility] Last Admin: 10/23/17 10:09 Dose: 90 mg Metolazone (Zaroxolyn) 5 mg PO DAILY [facility] Last Admin: 10/23/17 18:16 Dose: 5 mg Metoprolol Tartrate (Lopressor) 50 mg PO DAILY [facility] Last Admin: 10/23/17 10:09 Dose: 50 mg Pantoprazole Sodium (Protonix Ec Tab) 40 mg PO DAILY [facility] Last Admin: 10/23/17 10:09 Dose: 40 mg Rosuvastatin Calcium (Crestor) 10 mg PO HS [facility] Last Admin: 10/22/17 21:27 Dose: 10 mg Tamsulosin HCl (Flomax) 0.4 mg PO DAILY [facility] Last Admin: 10/23/17 10:09 Dose: 0.4 mg - Labs Labs: 10/23/17 07:10 10/23/17 07:10 - Constitutional Appears: Well - Head Exam Head Exam: NORMAL INSPECTION - Eye Exam Eye Exam: Normal appearance - ENT Exam ENT Exam: Mucous Membranes Moist - Neck Exam Neck Exam: Normal Inspection - Respiratory Exam Respiratory Exam: Decreased Breath Sounds - Cardiovascular Exam Cardiovascular Exam: REGULAR RHYTHM, +S1 - Rectal Exam Rectal Exam: Deferred Assessment and Plan (1) CHF (congestive heart failure) Status: Acute - Assessment and Plan (Free Text) Plan: Assessment: Acute on Chronic Diastolic CHF (congestive heart failure) 10/23: Inc Lasix IV to 40mg BID. Start Metolazone 5mg PO qD. Patient will be discharged with Lasix 80mg PO qD + Metolazone 5mg PO qD. 10/22: Restart Lasix 40mg IVP qD (today and tomorrow). Patient will be D/C'd with home med Lasix 40mg PO qD. Continue Clonidin, Imdur, Metoprolol. Breathing improved. Per Dr. Valdez, may need to decrease Metoprolol. Admit to Tele Cardio consult, Dr. Valdez, f/u recs likely chronic diastolic dysfunction -> recommend addition of clonidine. added Imdur ECHO (10/11/17): EF 60-65%, LA moderately dilated, mild concentric LVH, diastolic dysfunction grade one, no pericardial effusion. EKG (10/11/17): NSR @ 60bpm, 2nd Degree AV block Type I, Nonspecific T wave abnormality CXR (10/15/17): Possible RLL infiltrate. Small b/l pleural effusion - f/u repeat CXR BNP 2980 Trop negative throughout course Catapres) 0.1 mg PO BID [facility] Lasix) 40 mg IVP DAILY [facility] Imdur Er) 90 mg PO DAILY [facility] Lopressor) 50 mg PO DAILY [facility] Acute on Chronic Kidney Disease 10/23: Bun 63 / Cr 3.9. Dr. Nixon Romero aware, continue Lasix for diuresis. 10/22: BUN 56 / Cr 3.8. Stable (admitted with BUN 30/Cr 3.1) Current GFR 18 and BUN 44 / Cr 4.0 Patient admitted with GFR 24 and BUN/Cr of 30/3.1 10/18: continuing to hold lasix 10/16: Stop lasix as Cr 4.0. f/u 24hr urine collection -Renal ultrasound - No significant or acute findings to account for/ related to the clinical presentation. No significant interval change compared to the prior examination(s). Dyspnea on Exertion 10/23: Patient with dyspnea on exertion. He can only walk several steps out of his room before deconditioning and becoming SOB. O2 Sat without NC - resting (93%); (standing 96%); after ambulating 10 steps to exertion (89%) Patient may benefit from Home Oxygen? ABG: PO2 66L ; O2 Sat 94L [place] Type I, 2nd Degree AV block EKG (10/11/17): NSR @ 60bpm, 2nd Degree AV block Type I, Nonspecific T wave abnormality Anemia 10/23: Hgb uptrending, 9.1 today. -HGB 8.6 today, much improved -likely secondary to CKD Pleural effusion 10/19: bibasilar patchy opacity, small b/l pleural effusion 10/15: portable CXR with small b/l pleural effusion. likely due to volume status. improving CXR 10/11 with RL PNA an mild CHF. likely 2/2 CHF fluid overload Hypertension 10/22: Elevated at 176/91 Elevated this AM Norvasc 10mg PO Daily Clonidine 0.1 mg PO BID Im[facility]ur Er 90 mg PO DAILY [facility] Lopressor 50 mg PO DAILY [facility] Diabetes -continue ISS - Amaryl 4mg PO BID Hypoglycemia protocol Hyperlipidemia -continue crestor PO HS Prophylaxis -continue lovenox 30mg SC daily (renal dosage) -continue protonix Disposition: PT recommends [facility], however patient and refusing. They are open to home PT. Patient will be discharged with Lasix 80mg PO qD + Metolazone 5mg PO qD. Likely DC 10/24
[2017-10-24 07:32] LABS: BASO # 0.1 K/uL (0.0-0.2); BASO % 1.1 % (0.0-2.0); EOS # 0.3 K/uL (0.0-0.7); EOS % 4.6 % (0.0-4.0); HEMOGLOBIN 7.6 g/dL (12.0-18.0); LYMPH # 1.5 K/uL (1.0-4.3); LYMPH % 24.1 % (20.0-40.0); MEAN CELL VOLUME 79.8 fL (80.0-94.0); MEAN CORPUSCULAR HEMOGLOBIN 27.6 pg (27.0-31.0); MEAN CORPUSCULAR HGB CONC 34.6 g/dL (33.0-37.0); MEAN PLATELET VOLUME 7.4 fL (7.2-11.7); MONO # 0.8 K/uL (0.0-0.8); MONO % 12.2 % (0.0-10.0); NEUT # 3.6 K/uL (1.8-7.0); RBC 2.74 Mil/uL (4.40-5.90); RED CELL DISTRIBUTION WIDTH 13.6 % (11.5-14.5); WHITE BLOOD COUNT 6.2 K/uL (4.8-10.8)
--- NOTE | 2017-10-24 07:50 | CP.PCM.PN ---
Subjective - Date & Time of Evaluation Date of Evaluation: 10/24/17 Time of Evaluation: 07:15 - Subjective Subjective: PGY-[address] Romero's service: Pt seen and examined at bedside. Nursing reports no acute events overnight. His LE swelling is at its baseline today. His breathing has improved and is stable, however he becomes extremely lethargic taking 10 steps w/o NC O2. He has been working with PT. Currently denies chest pain, SOB, abdominal pain, or any additional acute complaints. Objective - Vital Signs/Intake and Output Vital Signs (last 24 hours): Temp Pulse Resp BP Pulse Ox 98.2 F 81 20 140/82 97 10/23/17 23:35 10/23/17 23:35 10/23/17 23:35 10/23/17 23:35 10/23/17 23:35 Intake and Output: 10/24/17 10/24/17 06:59 18:59 Output Total 200 Balance -200 - Medications Medications: Current Medications Amlodipine Besylate (Norvasc) 10 mg PO DAILY [facility] Last Admin: 10/23/17 10:08 Dose: 10 mg Aspirin (Ecotrin) 325 mg PO DAILY [facility] Last Admin: 10/23/17 10:09 Dose: 325 mg Calcitriol (Rocaltrol) 0.25 mcg PO DAILY [facility] Last Admin: 10/23/17 10:09 Dose: 0.25 mcg Clonidine HCl (Catapres) 0.1 mg PO BID [facility] Last Admin: 10/23/17 19:52 Dose: 0.1 mg Dextrose (Dextrose 50% Inj) 0 ml IV STAT PRN; Protocol PRN Reason: Hypoglycemia Protocol Dextrose (Glutose 15) 0 gm PO ONCE PRN; Protocol PRN Reason: Hypoglycemia Protocol Enoxaparin Sodium (Lovenox) 30 mg SC DAILY [facility] Last Admin: 10/23/17 10:10 Dose: 30 mg Furosemide (Lasix) 40 mg IVP BID [facility] Glimepiride (Amaryl) 4 mg PO BID [facility] Last Admin: 10/23/17 19:21 Dose: 4 mg Glucagon (Glucagen Diagnostic Kit) 0 mg IM STAT PRN; Protocol PRN Reason: Hypoglycemia Protocol Dextrose (Dextrose 5% In Water 1000 Ml) 1,000 mls @ 0 mls/hr IV .Q0M PRN; Protocol; Per Protocol PRN Reason: Hypoglycemia Protocol Insulin Aspart (Novolog) 0 unit SC ACHS [facility] PRN Reason: Protocol Last Admin: 10/23/17 22:43 Dose: Not Given Isosorbide Mononitrate (Imdur Er) 90 mg PO DAILY [facility] Last Admin: 10/23/17 10:09 Dose: 90 mg Metolazone (Zaroxolyn) 5 mg PO DAILY [facility] Last Admin: 10/23/17 18:16 Dose: 5 mg Metoprolol Tartrate (Lopressor) 50 mg PO DAILY [facility] Last Admin: 10/23/17 10:09 Dose: 50 mg Pantoprazole Sodium (Protonix Ec Tab) 40 mg PO DAILY [facility] Last Admin: 10/23/17 10:09 Dose: 40 mg Rosuvastatin Calcium (Crestor) 10 mg PO HS [facility] Last Admin: 10/23/17 21:40 Dose: 10 mg Tamsulosin HCl (Flomax) 0.4 mg PO DAILY [facility] Last Admin: 10/23/17 10:09 Dose: 0.4 mg - Labs Labs: 10/24/17 07:26 10/23/17 07:10 - Additional Findings Additional findings: - Constitutional Appears: Non-toxic, No Acute Distress - Head Exam Head Exam: ATRAUMATIC, NORMAL INSPECTION - Eye Exam Eye Exam: EOMI - ENT Exam ENT Exam: Mucous Membranes Moist - Neck Exam Neck Exam: Full ROM, Normal Inspection - Respiratory Exam Respiratory Exam: Decreased Breath Sounds (b/l). absent: Respiratory Distress, Rales, Rhonchi - Cardiovascular Exam Cardiovascular Exam: Regular Rate, +S1, +S2; No Murmur - GI/Abdominal Exam GI & Abdominal Exam: Soft, Normal Bowel Sounds. absent: Tenderness - Extremities Exam Extremities Exam: 2+ pitting edema bilaterally (just below the knees) - Back Exam Back Exam: NORMAL INSPECTION - Neurological Exam Neurological Exam: Alert, Awake, Oriented x3 - Psychiatric Exam Psychiatric exam: Normal Affect, Normal Mood - Skin Skin Exam: Dry, Intact, Normal Color, Warm Assessment and Plan - Assessment and Plan (Free Text) Assessment: Acute on Chronic Diastolic CHF (congestive heart failure) 10/23-10/24: Inc Lasix IV to 40mg BID. Start Metolazone 5mg PO qD. Patient will be discharged with Lasix 80mg PO qD + Metolazone 5mg PO qD. 10/22: Restart Lasix 40mg IVP qD (today and tomorrow). Patient will be D/C'd with home med Lasix 40mg PO qD. Continue Clonidin, Imdur, Metoprolol. Breathing improved. Per Dr. Valdez, may need to decrease Metoprolol. Admit to Tele Cardio consult, Dr. Valdez, f/u recs likely chronic diastolic dysfunction -> recommend addition of clonidine. added Imdur ECHO (10/11/17): EF 60-65%, LA moderately dilated, mild concentric LVH, diastolic dysfunction grade one, no pericardial effusion. EKG (10/11/17): NSR @ 60bpm, 2nd Degree AV block Type I, Nonspecific T wave abnormality CXR (10/15/17): Possible RLL infiltrate. Small b/l pleural effusion - f/u repeat CXR BNP 2980 Trop negative throughout course Catapres) 0.1 mg PO BID [facility] HOLD Lasix) 40 mg IVP DAILY [facility] Imdur Er) 90 mg PO DAILY [facility] Lopressor) 50 mg PO DAILY [facility] Acute on Chronic Kidney Disease 10/24: BUN 61 / Cr. 3.9. Dr. Nixon Romero aware, continue Lasix + Metolazone for diuresis. 10/23: Bun 63 / Cr 3.9. Dr. Nixon jang, continue Lasix for diuresis. 10/22: BUN 56 / Cr 3.8. Stable (admitted with BUN 30/Cr 3.1) Current GFR 18 and BUN 44 / Cr 4.0 Patient admitted with GFR 24 and BUN/Cr of 30/3.1 10/18: continuing to hold lasix 10/16: Stop lasix as Cr 4.0. f/u 24hr urine collection -Renal ultrasound - No significant or acute findings to account for/ related to the clinical presentation. No significant interval change compared to the prior examination(s). Dyspnea on Exertion 10/24: Continue diuresis. Pt will be d/c'd with home PT (refuses ALEJANDRO). 10/23: Patient with dyspnea on exertion. He can only walk several steps out of his room before deconditioning and becoming SOB. O2 Sat without NC - resting (93%); (standing 96%); after ambulating 10 steps to exertion (89%) Patient may benefit from Home Oxygen? ABG: PO2 66L ; O2 Sat 94L [place] Type I, 2nd Degree AV block EKG (10/11/17): NSR @ 60bpm, 2nd Degree AV block Type I, Nonspecific T wave abnormality Anemia 10/24: Hgb 7.6 - transfuse 1u PRBC followed by Lasix 20mg IVP to maintain volume status. 10/23: Hgb uptrending, 9.1 today. -HGB 8.6 today, much improved -likely secondary to CKD Pleural effusion 10/19: bibasilar patchy opacity, small b/l pleural effusion 10/15: portable CXR with small b/l pleural effusion. likely due to volume status. improving CXR 10/11 with RL PNA an mild CHF. likely 2/2 CHF fluid overload Hypertension 10/22: Elevated at 176/91 Elevated this AM Norvasc 10mg PO Daily Clonidine 0.1 mg PO BID Imdur Er 90 mg PO DAILY [facility] Lopressor 50 mg PO DAILY [facility] Diabetes -continue ISS - Amaryl 4mg PO BID Hypoglycemia protocol Hyperlipidemia -continue crestor PO HS Prophylaxis -continue lovenox 30mg SC daily (renal dosage) -continue protonix Disposition: Pt will be d/c'd with home PT (for completed and with medical case worker) Patient will be discharged with: Lasix 80mg PO BID x7d; after 7 days reduce to Lasix 80mg PO qD Metolazone 5mg PO qD. Case discussed with attending. All medical management as per Dr. Nixon Romero.
[2017-10-24 08:03] LABS: ALB/GLOB RATIO 0.8 (1.0-2.1); CALCIUM 8.7 mg/dl (8.6-10.4)
[2017-10-24] MEDS: (Novolog) Insulin Aspart, Recombinant 100 u/ml 10 ml vial SC SCH ×4 (08:10→22:06)
[2017-10-24] MEDS: Pantoprazole 40 mg EC Tab PO SCH (10:00)
[2017-10-24] MEDS: Aspirin 325 mg EC Tablets PO SCH (10:00)
[2017-10-24] MEDS: Enoxaparin 30 mg Syringe SC SCH (10:00)
[2017-10-24] MEDS: metOLazone 5 MG TAB PO SCH (10:01)
--- NOTE | 2017-10-24 12:44 | CP.PCM.PN ---
Subjective - Date & Time of Evaluation Date of Evaluation: 10/24/17 Time of Evaluation: 09:20 - Subjective Subjective: clinically same Objective - Vital Signs/Intake and Output Vital Signs (last 24 hours): Temp Pulse Resp BP Pulse Ox 98.6 F 76 20 144/79 96 10/24/17 08:35 10/24/17 08:35 10/24/17 08:35 10/24/17 08:35 10/24/17 08:35 Intake and Output: 10/24/17 10/24/17 06:59 18:59 Output Total 200 Balance -200 - Medications Medications: Current Medications Amlodipine Besylate (Norvasc) 10 mg PO DAILY [facility] Last Admin: 10/24/17 10:00 Dose: 10 mg Aspirin (Ecotrin) 325 mg PO DAILY [facility] Last Admin: 10/24/17 10:00 Dose: 325 mg Calcitriol (Rocaltrol) 0.25 mcg PO DAILY [facility] Last Admin: 10/24/17 10:00 Dose: 0.25 mcg Clonidine HCl (Catapres) 0.1 mg PO BID [facility] Last Admin: 10/24/17 10:00 Dose: 0.1 mg Dextrose (Dextrose 50% Inj) 0 ml IV STAT PRN; Protocol PRN Reason: Hypoglycemia Protocol Dextrose (Glutose 15) 0 gm PO ONCE PRN; Protocol PRN Reason: Hypoglycemia Protocol Enoxaparin Sodium (Lovenox) 30 mg SC DAILY [facility] Last Admin: 10/23/17 10:10 Dose: 30 mg Furosemide (Lasix) 40 mg IVP BID [facility] Last Admin: 10/24/17 08:10 Dose: 40 mg Furosemide (Lasix) 20 mg IVP ONCE PRN PRN Reason: Systolic Blood Pressure Glimepiride (Amaryl) 4 mg PO BID [facility] Last Admin: 10/24/17 10:00 Dose: 4 mg Glucagon (Glucagen Diagnostic Kit) 0 mg IM STAT PRN; Protocol PRN Reason: Hypoglycemia Protocol Dextrose (Dextrose 5% In Water 1000 Ml) 1,000 mls @ 0 mls/hr IV .Q0M PRN; Protocol; Per Protocol PRN Reason: Hypoglycemia Protocol Insulin Aspart (Novolog) 0 unit SC ACHS [facility] PRN Reason: Protocol Last Admin: 10/24/17 08:10 Dose: 2 unit Isosorbide Mononitrate (Imdur Er) 90 mg PO DAILY [facility] Last Admin: 10/24/17 10:00 Dose: 90 mg Metolazone (Zaroxolyn) 5 mg PO DAILY [facility] Last Admin: 10/24/17 10:01 Dose: 5 mg Metoprolol Tartrate (Lopressor) 50 mg PO DAILY [facility] Last Admin: 10/24/17 10:00 Dose: 50 mg Pantoprazole Sodium (Protonix Ec Tab) 40 mg PO DAILY [facility] Last Admin: 10/24/17 10:00 Dose: 40 mg Rosuvastatin Calcium (Crestor) 10 mg PO HS [facility] Last Admin: 10/23/17 21:40 Dose: 10 mg Tamsulosin HCl (Flomax) 0.4 mg PO DAILY [facility] Last Admin: 10/24/17 10:00 Dose: 0.4 mg - Labs Labs: 10/24/17 07:26 10/24/17 07:26 - Constitutional Appears: Well - Head Exam Head Exam: ATRAUMATIC, NORMAL INSPECTION, NORMOCEPHALIC - Eye Exam Eye Exam: EOMI, Normal appearance, PERRL Pupil Exam: NORMAL ACCOMODATION, PERRL - ENT Exam ENT Exam: Mucous Membranes Moist, Normal Exam - Neck Exam Neck Exam: Full ROM, Normal Inspection. absent: Lymphadenopathy - Respiratory Exam Respiratory Exam: Decreased Breath Sounds - Cardiovascular Exam Cardiovascular Exam: REGULAR RHYTHM, +S1, +S2 - GI/Abdominal Exam GI & Abdominal Exam: Soft, Diminished Bowel Sounds - Rectal Exam Rectal Exam: Deferred Assessment and Plan (1) CHF (congestive heart failure) Status: Acute
--- NOTE | 2017-10-24 13:52 | CP.PCM.PN ---
Subjective - Date & Time of Evaluation Date of Evaluation: 10/24/17 Time of Evaluation: 13:52 Objective - Vital Signs/Intake and Output Vital Signs (last 24 hours): Temp Pulse Resp BP Pulse Ox 98.6 F 76 20 144/79 96 10/24/17 08:35 10/24/17 08:35 10/24/17 08:35 10/24/17 08:35 10/24/17 08:35 Intake and Output: 10/24/17 10/24/17 06:59 18:59 Output Total 200 Balance -200 - Medications Medications: Current Medications Amlodipine Besylate (Norvasc) 10 mg PO DAILY [facility] Last Admin: 10/24/17 10:00 Dose: 10 mg Aspirin (Ecotrin) 325 mg PO DAILY [facility] Last Admin: 10/24/17 10:00 Dose: 325 mg Calcitriol (Rocaltrol) 0.25 mcg PO DAILY [facility] Last Admin: 10/24/17 10:00 Dose: 0.25 mcg Clonidine HCl (Catapres) 0.1 mg PO BID [facility] Last Admin: 10/24/17 10:00 Dose: 0.1 mg Dextrose (Dextrose 50% Inj) 0 ml IV STAT PRN; Protocol PRN Reason: Hypoglycemia Protocol Dextrose (Glutose 15) 0 gm PO ONCE PRN; Protocol PRN Reason: Hypoglycemia Protocol Enoxaparin Sodium (Lovenox) 30 mg SC DAILY [facility] Last Admin: 10/24/17 10:00 Dose: 30 mg Furosemide (Lasix) 40 mg IVP BID [facility] Last Admin: 10/24/17 08:10 Dose: 40 mg Furosemide (Lasix) 20 mg IVP ONCE PRN PRN Reason: Systolic Blood Pressure Glimepiride (Amaryl) 4 mg PO BID [facility] Last Admin: 10/24/17 10:00 Dose: 4 mg Glucagon (Glucagen Diagnostic Kit) 0 mg IM STAT PRN; Protocol PRN Reason: Hypoglycemia Protocol Dextrose (Dextrose 5% In Water 1000 Ml) 1,000 mls @ 0 mls/hr IV .Q0M PRN; Protocol; Per Protocol PRN Reason: Hypoglycemia Protocol Insulin Aspart (Novolog) 0 unit SC ACHS [facility] PRN Reason: Protocol Last Admin: 10/24/17 13:19 Dose: 2 unit Isosorbide Mononitrate (Imdur Er) 90 mg PO DAILY [facility] Last Admin: 10/24/17 10:00 Dose: 90 mg Metolazone (Zaroxolyn) 5 mg PO DAILY [facility] Last Admin: 10/24/17 10:01 Dose: 5 mg Metoprolol Tartrate (Lopressor) 50 mg PO DAILY [facility] Last Admin: 10/24/17 10:00 Dose: 50 mg Pantoprazole Sodium (Protonix Ec Tab) 40 mg PO DAILY [facility] Last Admin: 10/24/17 10:00 Dose: 40 mg Rosuvastatin Calcium (Crestor) 10 mg PO [facility] Last Admin: 10/23/17 21:40 Dose: 10 mg Tamsulosin HCl (Flomax) 0.4 mg PO DAILY [facility] Last Admin: 10/24/17 10:00 Dose: 0.4 mg - Labs Labs: 10/24/17 07:26 10/24/17 07:26
[2017-10-24] MEDS ORDERED: DiphenhydrAMINE 50 mg/ml Inj IVP ONE (15:55)
[2017-10-25 00:58] VITALS: RESP 20
[2017-10-25 07:29] LABS: BASO # 0.1 K/uL (0.0-0.2); EOS # 0.4 K/uL (0.0-0.7); EOS % 5.4 % (0.0-4.0); HEMOGLOBIN 9.5 g/dL (12.0-18.0); LYMPH # 1.4 K/uL (1.0-4.3); LYMPH % 20.9 % (20.0-40.0); MEAN CELL VOLUME 81.1 fL (80.0-94.0); MEAN CORPUSCULAR HEMOGLOBIN 27.4 pg (27.0-31.0); MEAN CORPUSCULAR HGB CONC 33.8 g/dL (33.0-37.0); MEAN PLATELET VOLUME 7.8 fL (7.2-11.7); MONO # 0.6 K/uL (0.0-0.8); MONO % 9.3 % (0.0-10.0); NEUT # 4.4 K/uL (1.8-7.0); NEUT % 63.4 % (50.0-75.0); RBC 3.46 Mil/uL (4.40-5.90); RED CELL DISTRIBUTION WIDTH 13.7 % (11.5-14.5); WHITE BLOOD COUNT 6.9 K/uL (4.8-10.8)
[2017-10-25 07:48] LABS: ALB/GLOB RATIO 0.9 (1.0-2.1); ALBUMIN 3.6 g/dL (3.5-5.0); CALCIUM 8.6 mg/dl (8.6-10.4)
[2017-10-25] MEDS: (Novolog) Insulin Aspart, Recombinant 100 u/ml 10 ml vial SC SCH ×3 (07:52→17:08)
[2017-10-25] MEDS: Pantoprazole 40 mg EC Tab PO SCH (09:14)
[2017-10-25] MEDS: Aspirin 325 mg EC Tablets PO SCH (09:15)
[2017-10-25] MEDS: metOLazone 5 MG TAB PO SCH (09:15)
[2017-10-25] MEDS: Enoxaparin 30 mg Syringe SC SCH (09:15)
--- NOTE | 2017-10-25 12:48 | CP.PCM.PN ---
Subjective - Date & Time of Evaluation Date of Evaluation: 10/25/17 Time of Evaluation: 12:00 - Subjective Subjective: patient has no chest pain or dyspnea. lower extremity edema is stable. Objective - Vital Signs/Intake and Output Vital Signs (last 24 hours): Temp Pulse Resp BP Pulse Ox 98.1 F 81 20 163/76 H 99 10/25/17 08:35 10/25/17 08:35 10/25/17 08:35 10/25/17 09:30 10/25/17 08:35 Intake and Output: 10/25/17 10/25/17 06:59 18:59 Intake Total 375 Output Total 250 Balance 125 - Medications Medications: Current Medications Amlodipine Besylate (Norvasc) 10 mg PO DAILY [facility] Last Admin: 10/25/17 09:14 Dose: 10 mg Aspirin (Ecotrin) 325 mg PO DAILY [facility] Last Admin: 10/25/17 09:15 Dose: 325 mg Calcitriol (Rocaltrol) 0.25 mcg PO DAILY [facility] Last Admin: 10/25/17 09:15 Dose: 0.25 mcg Clonidine HCl (Catapres) 0.1 mg PO BID [facility] Last Admin: 10/25/17 09:14 Dose: 0.1 mg Dextrose (Dextrose 50% Inj) 0 ml IV STAT PRN; Protocol PRN Reason: Hypoglycemia Protocol Dextrose (Glutose 15) 0 gm PO ONCE PRN; Protocol PRN Reason: Hypoglycemia Protocol Enoxaparin Sodium (Lovenox) 30 mg SC DAILY [facility] Last Admin: 10/25/17 09:15 Dose: 30 mg Furosemide (Lasix) 40 mg IVP BID [facility] Last Admin: 10/25/17 09:30 Dose: 40 mg Furosemide (Lasix) 20 mg IVP ONCE PRN PRN Reason: Systolic Blood Pressure Glimepiride (Amaryl) 4 mg PO BID [facility] Last Admin: 10/25/17 09:15 Dose: 4 mg Glucagon (Glucagen Diagnostic Kit) 0 mg IM STAT PRN; Protocol PRN Reason: Hypoglycemia Protocol Insulin Aspart (Novolog) 0 unit SC [facility] PRN Reason: Protocol Last Admin: 10/25/17 12:44 Dose: 6 unit Isosorbide Mononitrate (Imdur Er) 90 mg PO DAILY [facility] Last Admin: 10/25/17 09:30 Dose: 90 mg Metolazone (Zaroxolyn) 5 mg PO DAILY [facility] Last Admin: 10/25/17 09:15 Dose: 5 mg Metoprolol Tartrate (Lopressor) 50 mg PO DAILY [facility] Last Admin: 10/25/17 09:18 Dose: 50 mg Pantoprazole Sodium (Protonix Ec Tab) 40 mg PO DAILY [facility] Last Admin: 10/25/17 09:14 Dose: 40 mg Rosuvastatin Calcium (Crestor) 10 mg PO HS [facility] Last Admin: 10/24/17 22:05 Dose: 10 mg Tamsulosin HCl (Flomax) 0.4 mg PO DAILY [facility] Last Admin: 10/25/17 09:14 Dose: 0.4 mg - Labs Labs: 10/25/17 07:15 10/25/17 07:15 - Constitutional Appears: Non-toxic - Head Exam Head Exam: NORMAL INSPECTION - Eye Exam Eye Exam: Normal appearance - ENT Exam ENT Exam: Mucous Membranes Moist - Neck Exam Neck Exam: Full ROM - Respiratory Exam Respiratory Exam: Decreased Breath Sounds - Cardiovascular Exam Cardiovascular Exam: REGULAR RHYTHM - GI/Abdominal Exam GI & Abdominal Exam: Normal Bowel Sounds - Rectal Exam Rectal Exam: Deferred - Extremities Exam Extremities Exam: Pedal Edema - Back Exam Back Exam: NORMAL INSPECTION - Neurological Exam Neurological Exam: Alert - Psychiatric Exam Psychiatric exam: Normal Affect - Skin Skin Exam: Normal Color Assessment and Plan (1) CHF (congestive heart failure) Assessment & Plan: patient has acute on chronic diastolic dysfunction. can add hydralazine 50 mg TID as blood pressure remains elevated Status: Acute
--- NOTE | 2017-10-25 15:37 | CP.PCM.PN ---
Subjective - Date & Time of Evaluation Date of Evaluation: 10/25/17 Time of Evaluation: 08:40 - Subjective Subjective: clinically same Objective - Vital Signs/Intake and Output Vital Signs (last 24 hours): Temp Pulse Resp BP Pulse Ox 98.1 F 81 20 163/76 H 99 10/25/17 08:35 10/25/17 08:35 10/25/17 08:35 10/25/17 09:30 10/25/17 08:35 Intake and Output: 10/25/17 10/25/17 06:59 18:59 Intake Total 375 Output Total 250 Balance 125 - Medications Medications: Current Medications Amlodipine Besylate (Norvasc) 10 mg PO DAILY [facility] Last Admin: 10/25/17 09:14 Dose: 10 mg Aspirin (Ecotrin) 325 mg PO DAILY [facility] Last Admin: 10/25/17 09:15 Dose: 325 mg Calcitriol (Rocaltrol) 0.25 mcg PO DAILY [facility] Last Admin: 10/25/17 09:15 Dose: 0.25 mcg Clonidine HCl (Catapres) 0.1 mg PO BID [facility] Last Admin: 10/25/17 09:14 Dose: 0.1 mg Dextrose (Dextrose 50% Inj) 0 ml IV STAT PRN; Protocol PRN Reason: Hypoglycemia Protocol Dextrose (Glutose 15) 0 gm PO ONCE PRN; Protocol PRN Reason: Hypoglycemia Protocol Enoxaparin Sodium (Lovenox) 30 mg SC DAILY [facility] Last Admin: 10/25/17 09:15 Dose: 30 mg Furosemide (Lasix) 40 mg IVP BID [facility] Last Admin: 10/25/17 09:30 Dose: 40 mg Furosemide (Lasix) 20 mg IVP ONCE PRN PRN Reason: Systolic Blood Pressure Glimepiride (Amaryl) 4 mg PO BID [facility] Last Admin: 10/25/17 09:15 Dose: 4 mg Glucagon (Glucagen Diagnostic Kit) 0 mg IM STAT PRN; Protocol PRN Reason: Hypoglycemia Protocol Insulin Aspart (Novolog) 0 unit SC [facility] PRN Reason: Protocol Last Admin: 10/25/17 12:44 Dose: 6 unit Isosorbide Mononitrate (Imdur Er) 90 mg PO DAILY [facility] Last Admin: 10/25/17 09:30 Dose: 90 mg Metolazone (Zaroxolyn) 5 mg PO DAILY [facility] Last Admin: 10/25/17 09:15 Dose: 5 mg Metoprolol Tartrate (Lopressor) 50 mg PO DAILY [facility] Last Admin: 10/25/17 09:18 Dose: 50 mg Pantoprazole Sodium (Protonix Ec Tab) 40 mg PO DAILY [facility] Last Admin: 10/25/17 09:14 Dose: 40 mg Rosuvastatin Calcium (Crestor) 10 mg PO HS [facility] Last Admin: 10/24/17 22:05 Dose: 10 mg Tamsulosin HCl (Flomax) 0.4 mg PO DAILY [facility] Last Admin: 10/25/17 09:14 Dose: 0.4 mg - Labs Labs: 10/25/17 07:15 10/25/17 07:15 - Constitutional Appears: Well - Head Exam Head Exam: ATRAUMATIC, NORMAL INSPECTION, NORMOCEPHALIC - Eye Exam Eye Exam: EOMI, Normal appearance, PERRL Pupil Exam: NORMAL ACCOMODATION, PERRL - ENT Exam ENT Exam: Mucous Membranes Moist, Normal Exam - Neck Exam Neck Exam: Full ROM, Normal Inspection. absent: Lymphadenopathy - Respiratory Exam Respiratory Exam: Decreased Breath Sounds - Cardiovascular Exam Cardiovascular Exam: REGULAR RHYTHM, +S1, +S2 - GI/Abdominal Exam GI & Abdominal Exam: Soft, Diminished Bowel Sounds - Rectal Exam Rectal Exam: Deferred Assessment and Plan (1) CHF (congestive heart failure) Status: Acute
[2017-10-25 16:20] VITALS: PULSE 63; TEMP 97.4; O2SAT 96
--- NOTE | 2017-10-25 17:26 | PCM.HF ---
Heart Failure Core Measure - Heart Failure Ejection Fraction: 40 % or Greater (EF 60-65%) WILL Inhibitor Prescribed: Yes Beta-Roxane Prescribed: Metoprolol Succinate Contraindication/Reason for not providing: on will AnticoagulationTherapy for Atrial Fibrillation/Atrialflutter: No Contraindication/Reason for not providing: no afib Aldosterone Antagonist Prescribed: No Contraindication/Reason for not providing: EF >40% Hydralazine Nitrate Prescribed: No Contraindication/Reason for not providing: EF >40% Implantable Cardioverter Defibrillator Therapy: No Contraindication/Reason for not providing: EF >40% - Follow up Will be discharged to: Home Follow Up Date (must be within 7 days from discharge): 10/29/17 Follow Up Time: 09:00
[2017-10-25 17:33] VITALS: BP 171/91
--- NOTE | 2017-10-25 17:47 | CP.PCM.PN ---
Subjective - Date & Time of Evaluation Date of Evaluation: 10/25/17 Time of Evaluation: 17:47 - Subjective Subjective: Alert, awake, no acute distress. Objective - Vital Signs/Intake and Output Vital Signs (last 24 hours): Temp Pulse Resp BP Pulse Ox 97.4 F L 63 20 171/91 H 96 10/25/17 15:10 10/25/17 15:10 10/25/17 15:10 10/25/17 17:32 10/25/17 15:10 Intake and Output: 10/25/17 10/25/17 06:59 18:59 Intake Total 375 Output Total 250 Balance 125 - Medications Medications: Current Medications Amlodipine Besylate (Norvasc) 10 mg PO DAILY [facility] Last Admin: 10/25/17 09:14 Dose: 10 mg Aspirin (Ecotrin) 325 mg PO DAILY [facility] Last Admin: 10/25/17 09:15 Dose: 325 mg Calcitriol (Rocaltrol) 0.25 mcg PO DAILY [facility] Last Admin: 10/25/17 09:15 Dose: 0.25 mcg Clonidine HCl (Catapres) 0.1 mg PO BID [facility] Last Admin: 10/25/17 17:32 Dose: 0.1 mg Dextrose (Dextrose 50% Inj) 0 ml IV STAT PRN; Protocol PRN Reason: Hypoglycemia Protocol Dextrose (Glutose 15) 0 gm PO ONCE PRN; Protocol PRN Reason: Hypoglycemia Protocol Enoxaparin Sodium (Lovenox) 30 mg SC DAILY [facility] Last Admin: 10/25/17 09:15 Dose: 30 mg Furosemide (Lasix) 40 mg IVP BID [facility] Last Admin: 10/25/17 17:32 Dose: 40 mg Furosemide (Lasix) 20 mg IVP ONCE PRN PRN Reason: Systolic Blood Pressure Glimepiride (Amaryl) 4 mg PO BID [facility] Last Admin: 10/25/17 17:32 Dose: 4 mg Glucagon (Glucagen Diagnostic Kit) 0 mg IM STAT PRN; Protocol PRN Reason: Hypoglycemia Protocol Hydralazine HCl (Apresoline) 50 mg PO Q8H [facility] Insulin Aspart (Novolog) 0 unit SC ACHS [facility] PRN Reason: Protocol Last Admin: 10/25/17 17:08 Dose: Not Given Isosorbide Mononitrate (Imdur Er) 90 mg PO DAILY [facility] Last Admin: 10/25/17 09:30 Dose: 90 mg Metolazone (Zaroxolyn) 5 mg PO DAILY [facility] Last Admin: 10/25/17 09:15 Dose: 5 mg Metoprolol Tartrate (Lopressor) 50 mg PO DAILY [facility] Last Admin: 10/25/17 09:18 Dose: 50 mg Pantoprazole Sodium (Protonix Ec Tab) 40 mg PO DAILY [facility] Last Admin: 10/25/17 09:14 Dose: 40 mg Rosuvastatin Calcium (Crestor) 10 mg PO HS [facility] Last Admin: 10/24/17 22:05 Dose: 10 mg Tamsulosin HCl (Flomax) 0.4 mg PO DAILY [facility] Last Admin: 10/25/17 09:14 Dose: 0.4 mg - Labs Labs: 10/25/17 07:15 10/25/17 07:15 Assessment and Plan - Assessment and Plan (Free Text) Assessment: Patient is seen and examined.Alert, awake, follows commands. Denies sob or chest pains. Discussed with DR Nixon Romero, plan to discharge home today with home care, home PT. Added lasix 80mg , Zaroxolyn 5mg and hydrazine 50 tid to the medication list.Advised to follow up with PMD in 1 week. Advised to watch his weight, if any increase in weight or shortness of breath, to follow up with PMD immediately. 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
--- NOTE | 2017-10-25 18:43 | CP.PCM.PN ---
Subjective - Date & Time of Evaluation Date of Evaluation: 10/25/17 Time of Evaluation: 18:43 Objective - Vital Signs/Intake and Output Vital Signs (last 24 hours): Temp Pulse Resp BP Pulse Ox 97.4 F L 63 20 171/91 H 96 10/25/17 15:10 10/25/17 15:10 10/25/17 15:10 10/25/17 17:32 10/25/17 15:10 Intake and Output: 10/25/17 10/25/17 06:59 18:59 Intake Total 375 Output Total 250 Balance 125 - Medications Medications: Current Medications Amlodipine Besylate (Norvasc) 10 mg PO DAILY [facility] Last Admin: 10/25/17 09:14 Dose: 10 mg Aspirin (Ecotrin) 325 mg PO DAILY [facility] Last Admin: 10/25/17 09:15 Dose: 325 mg Calcitriol (Rocaltrol) 0.25 mcg PO DAILY [facility] Last Admin: 10/25/17 09:15 Dose: 0.25 mcg Clonidine HCl (Catapres) 0.1 mg PO BID [facility] Last Admin: 10/25/17 17:32 Dose: 0.1 mg Dextrose (Dextrose 50% Inj) 0 ml IV STAT PRN; Protocol PRN Reason: Hypoglycemia Protocol Dextrose (Glutose 15) 0 gm PO ONCE PRN; Protocol PRN Reason: Hypoglycemia Protocol Enoxaparin Sodium (Lovenox) 30 mg SC DAILY [facility] Last Admin: 10/25/17 09:15 Dose: 30 mg Furosemide (Lasix) 40 mg IVP BID [facility] Last Admin: 10/25/17 17:32 Dose: 40 mg Furosemide (Lasix) 20 mg IVP ONCE PRN PRN Reason: Systolic Blood Pressure Glimepiride (Amaryl) 4 mg PO BID [facility] Last Admin: 10/25/17 17:32 Dose: 4 mg Glucagon (Glucagen Diagnostic Kit) 0 mg IM STAT PRN; Protocol PRN Reason: Hypoglycemia Protocol Hydralazine HCl (Apresoline) 50 mg PO Q8H [facility] Last Admin: 10/25/17 18:07 Dose: 50 mg Insulin Aspart (Novolog) 0 unit SC ACHS [facility] PRN Reason: Protocol Last Admin: 10/25/17 17:08 Dose: Not Given Isosorbide Mononitrate (Imdur Er) 90 mg PO DAILY [facility] Last Admin: 10/25/17 09:30 Dose: 90 mg Metolazone (Zaroxolyn) 5 mg PO DAILY [facility] Last Admin: 10/25/17 09:15 Dose: 5 mg Metoprolol Tartrate (Lopressor) 50 mg PO DAILY [facility] Last Admin: 10/25/17 09:18 Dose: 50 mg Pantoprazole Sodium (Protonix Ec Tab) 40 mg PO DAILY [facility] Last Admin: 10/25/17 09:14 Dose: 40 mg Rosuvastatin Calcium (Crestor) 10 mg PO [facility] Last Admin: 10/24/17 22:05 Dose: 10 mg Tamsulosin HCl (Flomax) 0.4 mg PO DAILY [facility] Last Admin: 10/25/17 09:14 Dose: 0.4 mg - Labs Labs: 10/25/17 07:15 10/25/17 07:15
== END 2017-10-25 19:00 | disposition home or self-care (01) | DRG 291 ==
LOC: C.ER 14:28 → C.9E 16:35 → C.6T 16:35
PROVIDERS: ADMIT Internal Medicine Nephrology; ATTEND Internal Medicine Nephrology
DX: I13.0 Hypertensive heart and chronic kidney disease with heart failure and stage 1 through stage 4 chronic kidney disease, or unspecified chronic kidney disease (principal); I50.33 Acute on chronic diastolic (congestive) heart failure; J18.9 Pneumonia, unspecified organism; I44.1 Atrioventricular block, second degree; H40.9 Unspecified glaucoma; E78.5 Hyperlipidemia, unspecified; E11.22 Type 2 diabetes mellitus with diabetic chronic kidney disease; N18.9 Chronic kidney disease, unspecified; Z79.4 Long term (current) use of insulin; Z85.46 Personal history of malignant neoplasm of prostate; Z86.73 Personal history of transient ischemic attack (TIA), and cerebral infarction without residual deficits

== ENCOUNTER 2018-05-08 12:52 | Inpatient (IN) | payer MEDICARE, BC ==
[2018-05-08 13:18] VITALS: BMI 36.5
--- NOTE | 2018-05-08 13:50 | C.PDOC ---
History Of Present Illness 77 year old male with PMHx of HTN, CHF, and diabetes presents to the ED BIBA for shortness of breath. Patient was at Dr. Lyiah Calix's office when he developed shortness of breath. Patient was placed on BIPAP en route and given Lasix 20mg IVP. HPI is limited to due patient's clinical condition. Patient was admitted with similar presentation last October. Time Seen by Provider: 05/08/18 13:27 Chief Complaint (Nursing): Shortness Of Breath History Per: Patient, EMS History/Exam Limitations: clinical condition Onset/Duration Of Symptoms: Hrs Current Symptoms Are (Timing): Still Present Past Medical History Reviewed: Historical Data, Nursing Documentation, Vital Signs Vital Signs: Last Vital Signs Temp Pulse 56 L 05/08/18 13:34 Resp BP Pulse Ox - Medical History PMH: CHF, HTN, Hypercholesterolemia, Peripheral Edema, Pneumonia Other Surgeries: Hx of surgeries - [facility] Procedures ENDOSC POLYPECTOMY OF LG INTEST (02/15/99) ESOPHAGOGASTRODUODENOSCOPY [EGD] W/CLOSED BIOPSY (02/15/99) Family History: States: No Known Family Hx - Social History Hx Alcohol Use: No Hx Substance Use: No - Immunization History Hx Tetanus Toxoid Vaccination: No Hx Influenza Vaccination: No Hx Pneumococcal Vaccination: No Review Of Systems Except As Marked, All Systems Reviewed And Found Negative. (Limited due to patient's clinical condition) Constitutional: Negative for: Fever, Chills Respiratory: Positive for: Shortness of Breath Physical Exam - Physical Exam Appears: Non-toxic Skin: Warm, Dry Head: Normacephalic, Swelling (Face) Eye(s): bilateral: Normal Inspection Neck: Supple Chest: Symmetrical Cardiovascular: Rhythm Regular Respiratory: Decreased Breath Sounds (b/l ), Rales (diffusely ) Gastrointestinal/Abdominal: Soft, No Tenderness, Distention, No Guarding, No Rebound Extremity: Pedal Edema, Swelling (Upper and lower extremities ) Neurological/Psych: Oriented x3 ED Course And Treatment - Laboratory Results Result Diagrams: 05/08/18 13:53 05/08/18 15:10 Lab Interpretation: Abnormal (but unchanged since October. Hgb 8.8, BUN 47, Cr 3.9) ECG: Interpreted By Nh ECG Rhythm: Sinus Bradycardia, 1st Degree HB, ST/T Changes (nonspecific) O2 Sat by Pulse Oximetry: 98 (RA) Pulse Ox Interpretation: Normal (on BIPAP) - Radiology CXR: Viewed By Me, Read By Radiologist CXR Interpretation: Yes: Cardiomegaly, Other (CHF) - Other Rad CXR X-Ray: Viewed By Me, Read By Radiologist Interpretation: Accession No. : [id number]. Patient Name / ID : LAMONT SILVESTRE / [id number]. Exam Date : 05/08/2018 13:40:44 ( Approved ). Study Comment : Sex / Age : M / 77Y. Creator : Rajeev Montano MD. Dictator : Rajeev Montano MD. Patient Advocate : Human Resources Manager Manufacturing : Rajeev Montano MD. Approver2 : Report Date : 05/08/2018 14:55:04. My Comment : . Date of service: 05/08/2018. PROCEDURE: CHEST RADIOGRAPH, 1 VIEW. HISTORY: SOB. COMPARISON: 10/19/2017. FINDINGS: LUNGS: Pulmonary vascular congestion similar degree seen previously. PLEURA: Small right pleural effusion. CARDIOVASCULAR: No aortic atherosclerotic calcification present. Cardiomegaly. OSSEOUS STRUCTURES: No significant abnormalities. VISUALIZED UPPER ABDOMEN: Normal. OTHER FINDINGS: None. IMPRESSION: Pulmonary vascular congestion similar in degree to that seen previously. Reevaluation Time: 16:07 Reassessment Condition: Improved (Remains comfortable on BIPAP. Victor inserted and drained 650 ml clear urine) - Physician Consult Information Time Consulting Physician Contacted: 16:07 Physician Contacted: Scooter Romero Outcome Of Conversation: Patient to be admitted to [facility] for acute CHF Disposition - Disposition Disposition: HOSPITALIZED Disposition Time: 16:08 Condition: IMPROVED - POA Present On Arrival: None - Clinical Impression Clinical Impression: CHF (congestive heart failure), Respiratory distress - Scribe Statement The provider has reviewed the documentation as recorded by the Scribe Daylin Castle All medical record entries made by the Scribe were at my direction and persona lly dictated by me. I have reviewed the chart and agree that the record accurately reflects my personal performance of the history, physical exam, medical decision making, and the department course for this patient. I have also personally directed, reviewed, and agree with the discharge instructions and disposition.
[2018-05-08 13:59] LABS: BASO # 0.1 K/uL (0.0-0.2); BASO % 0.9 % (0.0-2.0); EOS # 0.5 K/uL (0.0-0.7); EOS % 5.6 % (0.0-4.0); HEMOGLOBIN 8.8 g/dL (12.0-18.0); LYMPH # 1.1 K/uL (1.0-4.3); MEAN CORPUSCULAR HEMOGLOBIN 27.1 pg (27.0-31.0); MEAN CORPUSCULAR HGB CONC 32.5 g/dL (33.0-37.0); MEAN PLATELET VOLUME 7.2 fL (7.2-11.7); MONO # 0.6 K/uL (0.0-0.8); MONO % 7.1 % (0.0-10.0); NEUT % 73.4 % (50.0-75.0); RBC 3.23 Mil/uL (4.40-5.90); RED CELL DISTRIBUTION WIDTH 14.2 % (11.5-14.5); WHITE BLOOD COUNT 8.1 K/uL (4.8-10.8)
[2018-05-08 14:00] LABS: MEAN CELL VOLUME 83.3 fL (80.0-94.0)
[2018-05-08 14:07] LABS: INR 1.1
[2018-05-08 14:08] LABS: ABG ALLEN TEST POS; ARTERIAL BLOOD GAS HCO3 26.4 mmol/L (21-28); ARTERIAL BLOOD GAS O2 SAT 98.6 % (95-98); ARTERIAL BLOOD GAS PCO2 42 mm/Hg (35-45); ARTERIAL BLOOD GAS PH 7.41 (7.35-7.45); ARTERIAL BLOOD GAS PO2 139 mm/Hg (80-100); ARTERIAL BLOOD GAS TCO2 27.9 mmol/L (22-28)
--- NOTE | 2018-05-08 14:58 | RAD ---
Date of service: 05/08/2018 PROCEDURE: CHEST RADIOGRAPH, 1 VIEW HISTORY: SOB COMPARISON: 10/19/2017 FINDINGS: LUNGS: Pulmonary vascular congestion similar degree seen previously PLEURA: Small right pleural effusion CARDIOVASCULAR: No aortic atherosclerotic calcification present. Cardiomegaly OSSEOUS STRUCTURES: No significant abnormalities. VISUALIZED UPPER ABDOMEN: Normal. OTHER FINDINGS: None. IMPRESSION: Pulmonary vascular congestion similar in degree to that seen previously.
[2018-05-08 15:26] LABS: ALBUMIN 3.7 g/dL (3.5-5.0); CALCIUM 8.4 mg/dl (8.6-10.4)
[2018-05-08 15:44] LABS: TROPONIN I 0.02 ng/mL (0.00-0.120)
[2018-05-08 16:03] LABS: URINE BACTERIA RARE (<OCC); URINE BILIRUBIN NEGATIVE (NEGATIVE); URINE BLOOD NEGATIVE (NEGATIVE); URINE CLARITY Clear (Clear); URINE COLOR Straw (YELLOW); URINE GLUCOSE (UA) NORMAL (Normal); URINE LEUKOCYTE ESTERASE NEG Leu/uL (Negative); URINE PROTEIN 2+ mg/dL (NEGATIVE); URINE UROBILINOGEN NORMAL mg/dL (0.2-1.0)
--- NOTE | 2018-05-08 20:36 | CP.CCUPN ---
CCU Subjective - Physician Review Subjective (Free Text): 05/09/18 00:26 The Patient was seen and examined at the bedside, Medical records reviewed, and management issues were discussed and formulated with the house staff. Mr Abbasi is a 77 Years old male with PMHx of HTN, Hypercholesterolemia, Peripheral Edema, Pneumonia and CHF Who presents to the ED BIBA for shortness of breath. Patient was at Dr. Liyah Calix's office when he developed shortness of breath. Patient was placed on BIPAP en route and given Lasix 20mg IVP. In the ER he was placed on BIPAP, Victor placed and so far about 1L urine output. Patient feeling much better now Awake, Pt AAO x3. Comfortable, NAD Breathing unlabored, on room air O2 sat 96-100%. Denies any chest pain, fever/chills or Palpitations Less SOB Afebrile Labs reviewed elevated BNP, first Trop negative, renal function BUN/Cr 47/3.9 (down from 63/4.3 on 10/25/2017) Sinus bradycardia on the monitor, EKG reviewed and compared with his old EKG when he was admitted in October 2017, no acute changes and the Second degree atrioventricular block: Mobitz type I (Wenckebach block) was present on old EKG. Currently he is hemodynamically stable, Asymptromatic, no evidence of Myocardial ischemia, first Trop negative. Patient can be safely admitted to the telemetry, no need for ICU/CCU admission at this time. Patient started on ASA, Plavix, Statins and was given Lasix CCU Objective - Vital Signs / Intake & Output Vital Signs (Last 4 hours): Vital Signs Pulse Resp BP Pulse Ox 05/08/18 19:52 70 16 168/88 H 100 05/08/18 16:55 47 L 16 157/89 H 100 Intake and Output (Last 8hrs): Intake & Output 05/08/18 05/08/18 05/08/18 06:59 14:59 22:59 Output Total 650 Balance -650 Weight 240 lb Output: Urine 650 - Physical Exam Physical Exam Limitations: Positive for: Clinical Condition Head: Positive for: Atraumatic, Normocephalic Pupils: Positive for: PERRL. Negative for: Sluggish, Non-Reactive Extroacular Muscles: Positive for: EOMI Conjunctiva: Positive for: Normal. Negative for: Injected, Icteric Mouth: Positive for: Moist Mucous Membranes Pharnyx: Positive for: Normal Nose (Internal): Positive for: Normal Inspection Neck: Positive for: Normal Range of Motion, Trachea Midline. Negative for: Meningeal Signs, MIDLINE TENDERNESS, Paraspinal Tenderness, JVD, Lymphaden opathy, Bruit, Other Respiratory/Chest: Positive for: Decreased Breath Sounds, Rales. Negative for: Respiratory Distress, Accessory Muscle Use, Retracting, Rhonchi, Tachypneic Cardiovascular: Positive for: Regular Rate and Rhythm, Normal S1, S2, Peripheal Pulses Present, Bradycardic. Negative for: Rub, Gallop Abdomen: Positive for: Normal Bowel Sounds. Negative for: Tenderness, Distention, Peritoneal Signs Upper Extremity: Positive for: Normal Inspection, NORMAL PULSES, Capillary Refill < 2s Lower Extremity: Positive for: Edema, NORMAL PULSES, Normal ROM, Capillary Refill < 2 s. Negative for: Normal Inspection, CALF TENDERNESS Neurological: Positive for: GCS=15, CN II-XII Intact, Speech Normal, Motor Func Grossly Intact, Normal Sensory Function Psychiatric: Positive for: Alert, Oriented x 3, Normal Insight, Normal Concentration, Normal Affect, Normal Mood - Medications Active Medications: Active Medications Generic Name Dose Route Start Last Admin Trade Name Freq PRN Reason Stop Dose Admin Amlodipine Besylate 1 mg 05/09/18 10:00 Norvasc PO DAILY [facility] Aspirin 325 mg 05/09/18 10:00 Aspirin PO DAILY [facility] Calcitriol 1,000 mcg 05/09/18 10:00 Rocaltrol PO DAILY [facility] Clopidogrel Bisulfate 1 mg 05/09/18 10:00 Plavix PO DAILY [facility] Enoxaparin Sodium 40 mg 05/09/18 10:00 Lovenox SC DAILY [facility] Furosemide 40 mg 05/09/18 10:00 Lasix IVP DAILY [facility] Glimepiride 1 mg 05/09/18 10:00 Amaryl PO BID [facility] Home Med 10 units 05/09/18 10:00 Insulin Lispro [Humalog (Insulin Lispro)] SC BID [facility] Home Med 1 cap 05/09/18 10:00 Ramipril [Altace] PO BID [facility] Home Med 1 tab 05/09/18 10:00 Simvastatin [Simvastatin] PO DAILY [facility] Hydralazine HCl 50 mg 05/08/18 20:15 Apresoline PO Q8H [facility] Metolazone 5 mg 05/09/18 10:00 Zaroxolyn PO DAILY [facility] Tamsulosin HCl 1 mg 05/09/18 10:00 Flomax PO DAILY [facility] - Patient Studies Lab Studies: Lab Studies 05/08/18 05/08/18 05/08/18 Range/Units 15:46 15:10 13:55 WBC (4.8-10.8) K/uL RBC (4.40-5.90) Mil/uL Hgb (12.0-18.0) g/dL Hct (35.0-51.0) % MCV (80.0-94.0) fL MCH (27.0-31.0) pg MCHC (33.0-37.0) g/dL RDW (11.5-14.5) % Plt Count (130-400) K/uL MPV (7.2-11.7) fL Neut % (Auto) (50.0-75.0) % Lymph % (Auto) (20.0-40.0) % Frio % (Auto) (0.0-10.0) % Eos % (Auto) (0.0-4.0) % Baso % (Auto) (0.0-2.0) % Neut # (Auto) (1.8-7.0) K/uL Lymph # (Auto) (1.0-4.3) K/uL Frio # (Auto) (0.0-0.8) K/uL Eos # (Auto) (0.0-0.7) K/uL Baso # (Auto) (0.0-0.2) K/uL PT (9.7-12.2) SECONDS INR APTT (21-34) SECONDS Puncture Site Lr pCO2 42 (35-45) mm/Hg pO2 139 H (80-100) mm/Hg HCO3 26.4 (21-28) mmol/L ABG pH 7.41 (7.35-7.45) ABG Total CO2 27.9 (22-28) mmol/L ABG O2 Saturation 98.6 H (95-98) % ABG Base Excess 1.8 (-2.0-3.0) mmol/L ABG Hemoglobin 9.0 L (11.7-17.4) g/dL ABG Carboxyhemoglobin 1.1 (0.5-1.5) % POC ABG HHb (Measured) 1.4 (0.0-5.0) % ABG Methemoglobin 0.4 (0.0-3.0) % Julius Test Pos A-a O2 Difference 94.0 mm/Hg Respiratory Index 0.7 Hgb O2 Saturation 97.1 (95.0-98.0) % Vent Mode Bipap FiO2 40.0 % Inspiratory BiPAP 12 Expiratory BiPAP 10 Sodium 138 (132-148) mmol/L Potassium 5.1 (3.6-5.2) mmol/L Chloride 102 (98-107) mmol/L Carbon Dioxide 27 (22-30) mmol/L Anion Gap 14 (10-20) BUN 47 H (9-20) mg/dL Creatinine 3.9 H (0.8-1.5) mg/dL Est GFR ( Amer) 18 Est GFR (Non-Af Amer) 15 Random Glucose 64 L (75-110) mg/dL Calcium 8.4 L (8.6-10.4) mg/dl Magnesium 1.8 (1.6-2.3) mg/dL Total Bilirubin 0.5 (0.2-1.3) mg/dL AST 52 (17-59) U/L ALT 47 (21-72) U/L Alkaline Phosphatase 128 H (38-126) U/L Troponin I 0.0200 (0.00-0.120) ng/mL NT-Pro-B Natriuret Pep 4670 H (0-900) pg/mL Total Protein 7.4 (6.3-8.3) g/dL Albumin 3.7 (3.5-5.0) g/dL Globulin 3.7 (2.2-3.9) gm/dL Albumin/Globulin Ratio 1.0 (1.0-2.1) Urine Color Straw (YELLOW) Urine Clarity Clear (Clear) Urine pH 6.0 (5.0-8.0) Ur Specific [place] 1.008 (1.003-1.030) Urine Protein 2+ H (NEGATIVE) mg/dL Urine Glucose (UA) Normal (Normal) mg/dL Urine Ketones Negative (NEGATIVE) mg/dL Urine Blood Negative (NEGATIVE) Urine Nitrate Negative (NEGATIVE) Urine Bilirubin Negative (NEGATIVE) Urine Urobilinogen Normal (0.2-1.0) mg/dL Ur Leukocyte Esterase Neg (Negative) Gerry/uL Urine WBC (Auto) 1 (0-5) /hpf Urine RBC (Auto) 1 (0-3) /hpf Urine Bacteria Rare (<OCC) 05/08/18 05/08/18 Range/Units 13:53 13:53 WBC 8.1 (4.8-10.8) K/uL RBC 3.23 L (4.40-5.90) Mil/uL Hgb 8.8 L (12.0-18.0) g/dL Hct 26.9 L (35.0-51.0) % MCV 83.3 D (80.0-94.0) fL MCH 27.1 (27.0-31.0) pg MCHC 32.5 L (33.0-37.0) g/dL RDW 14.2 (11.5-14.5) % Plt Count 313 (130-400) K/uL MPV 7.2 (7.2-11.7) fL Neut % (Auto) 73.4 (50.0-75.0) % Lymph % (Auto) 13.0 L (20.0-40.0) % Frio % (Auto) 7.1 (0.0-10.0) % Eos % (Auto) 5.6 H (0.0-4.0) % Baso % (Auto) 0.9 (0.0-2.0) % Neut # (Auto) 6.0 (1.8-7.0) K/uL Lymph # (Auto) 1.1 (1.0-4.3) K/uL Frio # (Auto) 0.6 (0.0-0.8) K/uL Eos # (Auto) 0.5 (0.0-0.7) K/uL Baso # (Auto) 0.1 (0.0-0.2) K/uL PT 12.0 (9.7-12.2) SECONDS INR 1.1 APTT 32 (21-34) SECONDS Puncture Site pCO2 (35-45) mm/Hg pO2 (80-100) mm/Hg HCO3 (21-28) mmol/L ABG pH (7.35-7.45) ABG Total CO2 (22-28) mmol/L ABG O2 Saturation (95-98) % ABG Base Excess (-2.0-3.0) mmol/L ABG Hemoglobin (11.7-17.4) g/dL ABG Carboxyhemoglobin (0.5-1.5) % POC ABG HHb (Measured) (0.0-5.0) % ABG Methemoglobin (0.0-3.0) % Julius Test A-a O2 Difference mm/Hg Respiratory Index Hgb O2 Saturation (95.0-98.0) % Vent Mode FiO2 % Inspiratory BiPAP Expiratory BiPAP Sodium (132-148) mmol/L Potassium (3.6-5.2) mmol/L Chloride (98-107) mmol/L Carbon Dioxide (22-30) mmol/L Anion Gap (10-20) BUN (9-20) mg/dL Creatinine (0.8-1.5) mg/dL Est GFR ( Amer) Est GFR (Non-Af Amer) Random Glucose (75-110) mg/dL Calcium (8.6-10.4) mg/dl Magnesium (1.6-2.3) mg/dL Total Bilirubin (0.2-1.3) mg/dL AST (17-59) U/L ALT (21-72) U/L Alkaline Phosphatase (38-126) U/L Troponin I (0.00-0.120) ng/mL NT-Pro-B Natriuret Pep (0-900) pg/mL Total Protein (6.3-8.3) g/dL Albumin (3.5-5.0) g/dL Globulin (2.2-3.9) gm/dL Albumin/Globulin Ratio (1.0-2.1) Urine Color (YELLOW) Urine Clarity (Clear) Urine pH (5.0-8.0) Ur Specific [place] (1.003-1.030) Urine Protein (NEGATIVE) mg/dL Urine Glucose (UA) (Normal) mg/dL Urine Ketones (NEGATIVE) mg/dL Urine Blood (NEGATIVE) Urine Nitrate (NEGATIVE) Urine Bilirubin (NEGATIVE) Urine Urobilinogen (0.2-1.0) mg/dL Ur Leukocyte Esterase (Negative) Gerry/uL Urine WBC (Auto) (0-5) /hpf Urine RBC (Auto) (0-3) /hpf Urine Bacteria (<OCC) Laboratory Results - last 24 hr 05/08/18 05/08/18 05/08/18 13:53 13:53 13:55 WBC 8.1 RBC 3.23 L Hgb 8.8 L Hct 26.9 L MCV 83.3 D MCH 27.1 MCHC 32.5 L RDW 14.2 Plt Count 313 MPV 7.2 Neut % (Auto) 73.4 Lymph % (Auto) 13.0 L Frio % (Auto) 7.1 Eos % (Auto) 5.6 H Baso % (Auto) 0.9 Neut # (Auto) 6.0 Lymph # (Auto) 1.1 Frio # (Auto) 0.6 Eos # (Auto) 0.5 Baso # (Auto) 0.1 PT 12.0 INR 1.1 APTT 32 Puncture Site Lr pCO2 42 pO2 139 H HCO3 26.4 ABG pH 7.41 ABG Total CO2 27.9 ABG O2 Saturation 98.6 H ABG Base Excess 1.8 ABG Hemoglobin 9.0 L ABG Carboxyhemoglobin 1.1 POC ABG HHb (Measured) 1.4 ABG Methemoglobin 0.4 Julius Test Pos A-a O2 Difference 94.0 Respiratory Index 0.7 Hgb O2 Saturation 97.1 Vent Mode Bipap FiO2 40.0 Inspiratory BiPAP 12 Expiratory BiPAP 10 Sodium Potassium Chloride Carbon Dioxide Anion Gap BUN Creatinine Est GFR ( Amer) Est GFR (Non-Af Amer) Random Glucose Calcium Magnesium Total Bilirubin AST ALT Alkaline Phosphatase Troponin I NT-Pro-B Natriuret Pep Total Protein Albumin Globulin Albumin/Globulin Ratio Urine Color Urine Clarity Urine pH Ur Specific [place] Urine Protein Urine Glucose (UA) Urine Ketones Urine Blood Urine Nitrate Urine Bilirubin Urine Urobilinogen Ur Leukocyte Esterase Urine WBC (Auto) Urine RBC (Auto) Urine Bacteria 05/08/18 05/08/18 15:10 15:46 WBC RBC Hgb Hct MCV MCH MCHC RDW Plt Count MPV Neut % (Auto) Lymph % (Auto) Frio % (Auto) Eos % (Auto) Baso % (Auto) Neut # (Auto) Lymph # (Auto) Frio # (Auto) Eos # (Auto) Baso # (Auto) PT INR APTT Puncture Site pCO2 pO2 HCO3 ABG pH ABG Total CO2 ABG O2 Saturation ABG Base Excess ABG Hemoglobin ABG Carboxyhemoglobin POC ABG HHb (Measured) ABG Methemoglobin Julius Test A-a O2 Difference Respiratory Index Hgb O2 Saturation Vent Mode FiO2 Inspiratory BiPAP Expiratory BiPAP Sodium 138 Potassium 5.1 Chloride 102 Carbon Dioxide 27 Anion Gap 14 BUN 47 H Creatinine 3.9 H Est GFR ( Amer) 18 Est GFR (Non-Af Amer) 15 Random Glucose 64 L Calcium 8.4 L Magnesium 1.8 Total Bilirubin 0.5 AST 52 ALT 47 Alkaline Phosphatase 128 H Troponin I 0.0200 NT-Pro-B Natriuret Pep 4670 H Total Protein 7.4 Albumin 3.7 Globulin 3.7 Albumin/Globulin Ratio 1.0 Urine Color Straw Urine Clarity Clear Urine pH 6.0 Ur Specific [place] 1.008 Urine Protein 2+ H Urine Glucose (UA) Normal Urine Ketones Negative Urine Blood Negative Urine Nitrate Negative Urine Bilirubin Negative Urine Urobilinogen Normal Ur Leukocyte Esterase Neg Urine WBC (Auto) 1 Urine RBC (Auto) 1 Urine Bacteria Rare EKG/Cardiology Studies: Cardiology / EKG Studies 05/08/18 13:12 ELECTROCARDIOGRAM Stat Comment: Mode Of Transportation: BED Reason For Exam: SOB 05/08/18 13:31 ELECTROCARDIOGRAM Stat Comment: Mode Of Transportation: BED Reason For Exam: SOB 05/08/18 16:57 EKG [ELECTROCARDIOGRAM] Stat Comment: Mode Of Transportation: Reason For Exam: repeat; bradycardia 05/08/18 22:00 EKG [ELECTROCARDIOGRAM] Routine Comment: Mode Of Transportation: STRETCHER Reason For Exam: abnormal heart rhythm 05/09/18 06:00 EKG [ELECTROCARDIOGRAM] Routine Comment: Mode Of Transportation: STRETCHER Reason For Exam: abnormal heart rhythm Review of Systems - Constitutional Constitutional: absent: Fever, Chills, Sweats, Weakness, Malaise - Cardiovascular Cardiovascular: Leg Edema. absent: Acrocyanosis, Chest Pain, Chest Pain at Rest, Chest Pain with Activity, Claudication, Diaphoresis - Respiratory Respiratory: Dyspnea, Dyspnea on Exertion. absent: Cough, Hemoptysis, Wheezing, Snoring, Stridor - Gastrointestinal Gastrointestinal: absent: Abdominal Pain, Coffee Ground Emesis, Diarrhea, Nausea, Vomiting Critical Care Progress Note - Extremities/Vascular Does the Patient have a Central Venous Catheter?: No Does the Patient need a Central Venous Catheter?: No Does the Patient have a Victor Catheter?: Yes Does the Patient need a Victor Catheter?: Yes Assessment/Plan (1) Mobitz (type) I (Wenckebach's) atrioventricular block Current Visit: Yes Status: Acute Priority: High (2) CHF (congestive heart failure) Current Visit: Yes Status: Acute Priority: High (3) Respiratory distress Current Visit: Yes Status: Acute Priority: Medium
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
[2018-05-09 00:48] LABS: CK-MB 1.83 ng/mL (0.0-3.38); TROPONIN I 0.015 ng/mL (0.00-0.120)
[2018-05-09 09:07] LABS: CK-MB 1.75 ng/mL (0.0-3.38); TROPONIN I 0.022 ng/mL (0.00-0.120)
[2018-05-09] MEDS ORDERED: (Novolin R) Insulin Human Regular 100 units/ml vial SC SCH (10:00)
[2018-05-09] MEDS ORDERED: RAMIPRIL PO SCH (10:00)
[2018-05-09] MEDS ORDERED: Enoxaparin 40 mg Syringe SC SCH ×2 (10:00)
[2018-05-09] MEDS ORDERED: Dextrose 50% SYRINGE Inj (50 ml) IV PRN (10:40)
[2018-05-09] MEDS ORDERED: Glucagon Recombinant 1 mg Inj IM PRN (10:40)
[2018-05-09] MEDS: metOLazone 5 MG TAB PO SCH (10:57)
[2018-05-09] MEDS: (Novolog Mix 70/30) Insulin Aspart/Insulin Aspar 100 units/ml SC SCH (17:13)
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
--- NOTE | 2018-05-09 21:48 | CP.PCM.PN ---
Subjective - Date & Time of Evaluation Date of Evaluation: 05/09/18 Time of Evaluation: 11:00 - Subjective Subjective: clinically same Objective - Vital Signs/Intake and Output Vital Signs (last 24 hours): Temp Pulse Resp BP Pulse Ox 98.3 F 93 H 18 164/83 H 98 05/09/18 15:15 05/09/18 16:00 05/09/18 15:15 05/09/18 15:15 05/09/18 15:15 Intake and Output: 05/09/18 05/10/18 18:59 06:59 Output Total 1350 Balance -1350 - Medications Medications: Current Medications Amlodipine Besylate (Norvasc) 10 mg PO DAILY [facility] Last Admin: 05/09/18 10:56 Dose: 10 mg Aspirin (Aspirin) 325 mg PO DAILY [facility] Last Admin: 05/09/18 10:57 Dose: 325 mg Calcitriol (Rocaltrol) 0.25 mcg PO DAILY [facility] Last Admin: 05/09/18 10:56 Dose: 0.25 mcg Clopidogrel Bisulfate (Plavix) 75 mg PO DAILY [facility] Last Admin: 05/09/18 10:56 Dose: 75 mg Dextrose (Dextrose 50% Inj) 0 ml IV STAT PRN; Protocol PRN Reason: Hypoglycemia Protocol Dextrose (Glutose 15) 0 gm PO ONCE PRN; Protocol PRN Reason: Hypoglycemia Protocol Enalapril Maleate (Vasotec) 20 mg PO DAILY [facility] Last Admin: 05/09/18 10:56 Dose: 20 mg Furosemide (Lasix) 40 mg IVP DAILY [facility] Last Admin: 05/09/18 10:56 Dose: 40 mg Glimepiride (Amaryl) 4 mg PO BID [facility] Last Admin: 05/09/18 17:14 Dose: 4 mg Glucagon (Glucagen Diagnostic Kit) 0 mg IM STAT PRN; Protocol PRN Reason: Hypoglycemia Protocol Heparin Sodium (Porcine) (Heparin) 5,000 units SC Q12 [facility] Hydralazine HCl (Apresoline) 50 mg PO Q8H [facility] Last Admin: 05/09/18 19:53 Dose: 50 mg Dextrose (Dextrose 5% In Water 1000 Ml) 1,000 mls @ 0 mls/hr IV .Q0M PRN; Protocol PRN Reason: Hypoglycemia Protocol Influenza Virus Vaccine (Fluzone Quad [id number]) 60 mcg IM .ONCE ONE Stop: 05/11/18 14:01 Insulin Aspart (Novolog Mix 70/30 (70/30 Units/Ml)) 10 units SC ACBD [facility] Last Admin: 05/09/18 17:13 Dose: 10 units Metolazone (Zaroxolyn) 5 mg PO DAILY [facility] Last Admin: 05/09/18 10:57 Dose: 5 mg Pneumococcal Polyvalent Vaccine (Pneumovax 23 Vaccine) 0.5 ml IM .ONCE ONE Stop: 05/11/18 14:01 Rosuvastatin Calcium (Crestor) 5 mg PO [facility] Tamsulosin HCl (Flomax) 0.4 mg PO DAILY [facility] Last Admin: 05/09/18 10:56 Dose: 0.4 mg - Labs Labs: 05/08/18 13:53 05/08/18 15:10 PT 12.0 SECONDS (9.7-12.2) 05/08/18 13:53 INR 1.1 05/08/18 13:53 APTT 32 SECONDS (21-34) 05/08/18 13:53 - Constitutional Appears: Well - Head Exam Head Exam: ATRAUMATIC, NORMAL INSPECTION, NORMOCEPHALIC - Eye Exam Eye Exam: EOMI, Normal appearance, PERRL Pupil Exam: NORMAL ACCOMODATION, PERRL - ENT Exam ENT Exam: Mucous Membranes Moist, Normal Exam - Neck Exam Neck Exam: Full ROM, Normal Inspection. absent: Lymphadenopathy - Respiratory Exam Respiratory Exam: Decreased Breath Sounds - Cardiovascular Exam Cardiovascular Exam: REGULAR RHYTHM, +S1, +S2 - GI/Abdominal Exam GI & Abdominal Exam: Soft, Diminished Bowel Sounds - Rectal Exam Rectal Exam: Deferred
[2018-05-10 07:43] LABS: BASO # 0.1 K/uL (0.0-0.2); BASO % 0.7 % (0.0-2.0); EOS # 0.3 K/uL (0.0-0.7); EOS % 3.8 % (0.0-4.0); HEMOGLOBIN 8.9 g/dL (12.0-18.0); LYMPH # 1.2 K/uL (1.0-4.3); MEAN CELL VOLUME 81.6 fL (80.0-94.0); MEAN CORPUSCULAR HEMOGLOBIN 27.5 pg (27.0-31.0); MEAN CORPUSCULAR HGB CONC 33.7 g/dL (33.0-37.0); MEAN PLATELET VOLUME 7.1 fL (7.2-11.7); MONO # 0.9 K/uL (0.0-0.8); MONO % 10.5 % (0.0-10.0); NEUT # 6.3 K/uL (1.8-7.0); RBC 3.24 Mil/uL (4.40-5.90); RED CELL DISTRIBUTION WIDTH 14.1 % (11.5-14.5); WHITE BLOOD COUNT 8.8 K/uL (4.8-10.8)
[2018-05-10 08:09] LABS: CALCIUM 8.2 mg/dl (8.6-10.4)
[2018-05-10] MEDS: (Novolog Mix 70/30) Insulin Aspart/Insulin Aspar 100 units/ml SC SCH ×2 (08:33→17:39)
[2018-05-10] MEDS ORDERED: Epoetin Alfa 10,000 unit/ml Dialysis SC SCH (10:00)
[2018-05-10] MEDS ORDERED: EPOETIN ALFA 4,000 UNIT/ML ML Dialysis SC SCH (11:00)
[2018-05-10 11:30] LABS: BASO # 0.1 K/uL (0.0-0.2); BASO % 0.8 % (0.0-2.0); EOS # 0.3 K/uL (0.0-0.7); EOS % 3.9 % (0.0-4.0); HEMOGLOBIN 9.1 g/dL (12.0-18.0); LYMPH # 1.2 K/uL (1.0-4.3); LYMPH % 14.1 % (20.0-40.0); MEAN CELL VOLUME 82.3 fL (80.0-94.0); MEAN CORPUSCULAR HEMOGLOBIN 27.6 pg (27.0-31.0); MEAN CORPUSCULAR HGB CONC 33.5 g/dL (33.0-37.0); MEAN PLATELET VOLUME 7.6 fL (7.2-11.7); MONO # 0.9 K/uL (0.0-0.8); MONO % 9.9 % (0.0-10.0); NEUT # 6.2 K/uL (1.8-7.0); NEUT % 71.3 % (50.0-75.0); NRBC % 0.1 % (0.0-2.0); RBC 3.29 Mil/uL (4.40-5.90); RED CELL DISTRIBUTION WIDTH 14.2 % (11.5-14.5); WHITE BLOOD COUNT 8.8 K/uL (4.8-10.8)
[2018-05-10 11:43] LABS: IRON 23 ug/dL (49-181)
[2018-05-10 11:52] LABS: COMPLEMENT C4 40.2 mg/dL (14.0-44.0)
[2018-05-10 12:02] LABS: % IRON SATURATION 10 (20-55); TOTAL IRON BINDING CAPACITY 230 ug/dL (250-450)
[2018-05-10] MEDS: metOLazone 5 MG TAB PO SCH (12:13)
[2018-05-10 12:29] LABS: HEPATITIS B SURFACE AG Negative (NEGATIVE)
[2018-05-10 12:34] LABS: HIV 1&2 ANTIBODY NEGATIVE (NEGATIVE)
[2018-05-10 12:35] LABS: HEPATITIS B CORE AB NEGATIVE (NEGATIVE)
--- NOTE | 2018-05-10 12:36 | CARD ---
APPROVED REPORT Date of service: 05/09/2018 EKG Measurement Heart [id number] [id number] <Conclusion> Sinus rhythm with marked sinus arrhythmia Otherwise normal ECG
[2018-05-10 12:46] LABS: HEPATITIS C ANTIBODY NEGATIVE (NEGATIVE)
[2018-05-10 13:03] LABS: FOLATE 9.6 ng/mL
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
[2018-05-10] MEDS: EPOETIN ALFA 4,000 UNIT/ML ML Dialysis SC SCH (14:24)
[2018-05-10 17:41] VITALS: RESP 20
--- NOTE | 2018-05-10 17:45 | CARD ---
APPROVED REPORT Date of service: 05/08/2018 EKG Measurement Heart [id number] <Conclusion> Sinus rhythm with 2nd degree AV block (Mobitz I) Cannot rule out Inferior infarct, age undetermined Abnormal ECG
--- NOTE | 2018-05-10 17:47 | CARD ---
APPROVED REPORT Date of service: 05/08/2018 EKG Measurement Heart [id number] <Conclusion> Sinus bradycardia 2nd degree AV block Mobitz I Nonspecific ST and T wave abnormality Abnormal ECG
--- NOTE | 2018-05-10 18:33 | CP.PCM.PN ---
Subjective - Date & Time of Evaluation Date of Evaluation: 05/10/18 Time of Evaluation: 18:10 - Subjective Subjective: chery has no current chest pain or dyspnea. Objective - Vital Signs/Intake and Output Vital Signs (last 24 hours): Temp Pulse Resp BP Pulse Ox 98.3 F 101 H 20 135/66 95 05/10/18 15:45 05/10/18 15:45 05/10/18 15:45 05/10/18 15:45 05/10/18 15:45 Intake and Output: 05/10/18 05/10/18 06:59 18:59 Output Total 1900 550 Balance -1900 -550 - Medications Medications: Current Medications Amlodipine Besylate (Norvasc) 10 mg PO DAILY [facility] Last Admin: 05/10/18 12:13 Dose: 10 mg Aspirin (Aspirin) 325 mg PO DAILY [facility] Last Admin: 05/10/18 12:12 Dose: 325 mg Calcitriol (Rocaltrol) 0.25 mcg PO DAILY [facility] Last Admin: 05/10/18 12:12 Dose: 0.25 mcg Clopidogrel Bisulfate (Plavix) 75 mg PO DAILY [facility] Last Admin: 05/10/18 12:17 Dose: 75 mg Dextrose (Dextrose 50% Inj) 0 ml IV STAT PRN; Protocol PRN Reason: Hypoglycemia Protocol Dextrose (Glutose 15) 0 gm PO ONCE PRN; Protocol PRN Reason: Hypoglycemia Protocol Enalapril Maleate (Vasotec) 20 mg PO DAILY [facility] Last Admin: 05/10/18 12:12 Dose: 20 mg Epoetin Cristóbal (Procrit) 8,000 unit SC MWF [facility] Last Admin: 05/10/18 14:24 Dose: 8,000 unit Ferrous Gluconate (Fergon) 324 mg PO TID [facility] Last Admin: 05/10/18 18:28 Dose: 324 mg Furosemide (Lasix) 40 mg IVP DAILY [facility] Last Admin: 05/10/18 12:13 Dose: 40 mg Glimepiride (Amaryl) 4 mg PO BID [facility] Last Admin: 05/10/18 17:38 Dose: 4 mg Glucagon (Glucagen Diagnostic Kit) 0 mg IM STAT PRN; Protocol PRN Reason: Hypoglycemia Protocol Heparin Sodium (Porcine) (Heparin) 5,000 units SC Q12 [facility] Last Admin: 05/10/18 12:13 Dose: 5,000 units Hydralazine HCl (Apresoline) 100 mg PO TID [facility] Last Admin: 05/10/18 17:38 Dose: 100 mg Dextrose (Dextrose 5% In Water 1000 Ml) 1,000 mls @ 0 mls/hr IV .Q0M PRN; Protocol PRN Reason: Hypoglycemia Protocol Influenza Virus Vaccine (Fluzone Quad [id number]) 60 mcg IM .ONCE ONE Stop: 05/11/18 14:01 Insulin Aspart (Novolog Mix 70/30 (70/30 Units/Ml)) 10 units SC ACBD [facility] Last Admin: 05/10/18 17:39 Dose: 10 units Isosorbide Mononitrate (Imdur Er) 60 mg PO DAILY [facility] Last Admin: 05/10/18 12:20 Dose: 60 mg Metolazone (Zaroxolyn) 5 mg PO DAILY [facility] Last Admin: 05/10/18 12:13 Dose: 5 mg Pneumococcal Polyvalent Vaccine (Pneumovax 23 Vaccine) 0.5 ml IM .ONCE ONE Stop: 05/11/18 14:01 Rosuvastatin Calcium (Crestor) 5 mg PO HS [facility] Last Admin: 05/09/18 21:58 Dose: 5 mg Tamsulosin HCl (Flomax) 0.4 mg PO DAILY [facility] Last Admin: 05/10/18 12:12 Dose: 0.4 mg Vitamin B Complex/Vit C/Folic Acid (Nephro-Lupillo) 1 tab PO 0800 [facility] - Labs Labs: 05/10/18 11:21 05/10/18 07:37 PT 12.0 SECONDS (9.7-12.2) 05/08/18 13:53 INR 1.1 05/08/18 13:53 APTT 32 SECONDS (21-34) 05/08/18 13:53 - Constitutional Appears: Non-toxic - Head Exam Head Exam: NORMAL INSPECTION - Eye Exam Eye Exam: Normal appearance - ENT Exam ENT Exam: Mucous Membranes Moist - Neck Exam Neck Exam: Full ROM - Respiratory Exam Respiratory Exam: NORMAL BREATHING PATTERN - Cardiovascular Exam Cardiovascular Exam: REGULAR RHYTHM - GI/Abdominal Exam GI & Abdominal Exam: Normal Bowel Sounds - Rectal Exam Rectal Exam: Deferred - Extremities Exam Extremities Exam: Pedal Edema - Back Exam Back Exam: NORMAL INSPECTION - Neurological Exam Neurological Exam: Alert - Psychiatric Exam Psychiatric exam: Normal Affect - Skin Skin Exam: Normal Color Assessment and Plan (1) Mobitz (type) I (Wenckebach's) atrioventricular block Assessment & Plan: hemodynamically stable. no PPM indication Status: Acute (2) Acute on chronic congestive heart failure with left ventricular diastolic dysfunction Assessment & Plan: patient hs normal left vetnricular function. continue medical therapy.and blood pressure control Status: Acute
--- NOTE | 2018-05-10 20:18 | CP.PCM.PN ---
Subjective - Date & Time of Evaluation Date of Evaluation: 05/10/18 Time of Evaluation: 10:30 - Subjective Subjective: clinically same Objective - Vital Signs/Intake and Output Vital Signs (last 24 hours): Temp Pulse Resp BP Pulse Ox 98.3 F 101 H 20 135/66 95 05/10/18 15:45 05/10/18 15:45 05/10/18 15:45 05/10/18 15:45 05/10/18 15:45 Intake and Output: 05/10/18 05/11/18 18:59 06:59 Output Total 550 Balance -550 - Medications Medications: Current Medications Amlodipine Besylate (Norvasc) 10 mg PO DAILY [facility] Last Admin: 05/10/18 12:13 Dose: 10 mg Aspirin (Aspirin) 325 mg PO DAILY [facility] Last Admin: 05/10/18 12:12 Dose: 325 mg Calcitriol (Rocaltrol) 0.25 mcg PO DAILY [facility] Last Admin: 05/10/18 12:12 Dose: 0.25 mcg Clopidogrel Bisulfate (Plavix) 75 mg PO DAILY [facility] Last Admin: 05/10/18 12:17 Dose: 75 mg Dextrose (Dextrose 50% Inj) 0 ml IV STAT PRN; Protocol PRN Reason: Hypoglycemia Protocol Dextrose (Glutose 15) 0 gm PO ONCE PRN; Protocol PRN Reason: Hypoglycemia Protocol Enalapril Maleate (Vasotec) 20 mg PO DAILY [facility] Last Admin: 05/10/18 12:12 Dose: 20 mg Epoetin Cristóbal (Procrit) 8,000 unit SC MWF [facility] Last Admin: 05/10/18 14:24 Dose: 8,000 unit Ferrous Gluconate (Fergon) 324 mg PO TID [facility] Last Admin: 05/10/18 18:28 Dose: 324 mg Furosemide (Lasix) 40 mg IVP DAILY [facility] Last Admin: 05/10/18 12:13 Dose: 40 mg Glimepiride (Amaryl) 4 mg PO BID [facility] Last Admin: 05/10/18 17:38 Dose: 4 mg Glucagon (Glucagen Diagnostic Kit) 0 mg IM STAT PRN; Protocol PRN Reason: Hypoglycemia Protocol Heparin Sodium (Porcine) (Heparin) 5,000 units SC Q12 [facility] Last Admin: 05/10/18 12:13 Dose: 5,000 units Hydralazine HCl (Apresoline) 100 mg PO TID [facility] Last Admin: 05/10/18 17:38 Dose: 100 mg Dextrose (Dextrose 5% In Water 1000 Ml) 1,000 mls @ 0 mls/hr IV .Q0M PRN; Protocol PRN Reason: Hypoglycemia Protocol Influenza Virus Vaccine (Fluzone Quad [id number]) 60 mcg IM .ONCE ONE Stop: 05/11/18 14:01 Insulin Aspart (Novolog Mix 70/30 (70/30 Units/Ml)) 10 units SC ACBD [facility] Last Admin: 05/10/18 17:39 Dose: 10 units Isosorbide Mononitrate (Imdur Er) 60 mg PO DAILY [facility] Last Admin: 05/10/18 12:20 Dose: 60 mg Metolazone (Zaroxolyn) 5 mg PO DAILY [facility] Last Admin: 05/10/18 12:13 Dose: 5 mg Pneumococcal Polyvalent Vaccine (Pneumovax 23 Vaccine) 0.5 ml IM .ONCE ONE Stop: 05/11/18 14:01 Rosuvastatin Calcium (Crestor) 5 mg PO HS [facility] Last Admin: 05/09/18 21:58 Dose: 5 mg Tamsulosin HCl (Flomax) 0.4 mg PO DAILY [facility] Last Admin: 05/10/18 12:12 Dose: 0.4 mg Vitamin B Complex/Vit C/Folic Acid (Nephro-Lupillo) 1 tab PO 0800 [facility] - Labs Labs: 05/10/18 11:21 05/10/18 07:37 PT 12.0 SECONDS (9.7-12.2) 05/08/18 13:53 INR 1.1 05/08/18 13:53 APTT 32 SECONDS (21-34) 05/08/18 13:53 - Constitutional Appears: Well - Head Exam Head Exam: ATRAUMATIC, NORMAL INSPECTION, NORMOCEPHALIC - Eye Exam Eye Exam: EOMI, Normal appearance, PERRL Pupil Exam: NORMAL ACCOMODATION, PERRL - ENT Exam ENT Exam: Mucous Membranes Moist, Normal Exam - Neck Exam Neck Exam: Full ROM, Normal Inspection. absent: Lymphadenopathy - Respiratory Exam Respiratory Exam: Decreased Breath Sounds - Cardiovascular Exam Cardiovascular Exam: REGULAR RHYTHM, +S1, +S2 - GI/Abdominal Exam GI & Abdominal Exam: Soft, Diminished Bowel Sounds - Rectal Exam Rectal Exam: Deferred
[2018-05-11] MEDS: Multivitamin Vitamin B Complex (Nephro-Vite) Tab PO SCH (08:48)
[2018-05-11] MEDS: (Novolog Mix 70/30) Insulin Aspart/Insulin Aspar 100 units/ml SC SCH ×2 (08:48→17:41)
[2018-05-11] MEDS ORDERED: Ergocalciferol 50,000 Intl Units Cap PO SCH (10:15)
[2018-05-11] MEDS ORDERED: Ferric Sodium Gluconat Complex 62.5 mg/5 ml Vial IVPB SCH (10:15)
[2018-05-11] MEDS: metOLazone 5 MG TAB PO SCH (10:17)
[2018-05-11] MEDS: Ferric Sodium Gluconat Complex 125 MG in Sodium Chloride 0.9% 100 ML IVPB SCH (11:41)
[2018-05-11] MEDS ORDERED: Influenza Vaccine 60 MCG/0.5 ML SYR (3 yr & up) IM ONE (14:00)
[2018-05-11] MEDS ORDERED: Pneumococcal 23-Valent Vaccine IM ONE (14:00)
--- NOTE | 2018-05-11 15:50 | CP.PCM.PN ---
Subjective - Date & Time of Evaluation Date of Evaluation: 05/11/18 Time of Evaluation: 15:49 - Subjective Subjective: Nephrology Consultation Note: Assessment: Stable CHF exacerbation with fluid overload with uncontrolled severe HTN Diabetic chronic Kidney Disease (E11.22) Hypertensive Chronic Kidney Disease (I12.9) Chronic Kidney Disease (N18.4) Stage 4 with 3 gram proteinuria (R80.9) ? due to DM/HTN/morbid obesity Anemia (D64.9) Plan No acute need for renal replacement therapy at this time. Hypertension control with meds as ordered. Maintain hemodynamics stable. Avoid hypotension. Patient on enalapril. increased hydralazine and added imdur Monitor Input/Output, daily weights and renal function with basic metabolic panel continue diuretics with lasix and metolazone Cardiology following continue with flomax added iron, MVI and epogen. PRBC as needed. Check urine analysis, spot protein/creatinine, albumin/creatinine ratio, bladder sonogram Check GN work up as C3, C4, TALIB, Anti dsDNA, HIV/Hep B and Hep C serology Anemia work up with TSAT/Ferritin/Vitamin B12/folate, serum protein electrophoresis with immunofixation, serum free light chain assay ([place]/Lambda) Check for 25-OH vitamin D, iPTH, phosphorus level. Secondary HTN work up with plasma renin/aldosterone Dose meds/antibiotics for reduced GFR. Avoid fleets enema/magnesium based laxatives. Avoid nephrotoxins/NSAIDs/ iodinated contrast (unless needed emergently) Glycemic control Further work up/management as per primary team save non-dominant arm from phlebotomy/IV lines for future AV access. Thanks for allowing me to participate in care of your patient. Will follow patient with you. Please call if any Qs. had d/w team Dr J Carlos Harrington Office: [phone] Chief Complaint; leg swelling Reason for consult: CKD 4 HPI: Pt is a 77 M with hx of diabetes Mellitus (5-7 years), hypertension (years) diastolic CHF, morbid obesity, CKD 4 with baseline cr 3.8-4.0 with 3 gram proteinuria, anemia presented with complaints of SOB and leg swelling and being managed for CHF exacerbation. Denies OTC/herbal meds or NSAIDs No recent iodinated contrast exposure. No obvious episodes of low BP. BP mostly high pt not aware about kidney disease in past. now he feels better. denies urine complaint but uncomfortable with andrew catheter and want it to be removed. ROS: Cardiovascular: No chest pain. Pulmonary: No shortness of breath now Gastrointestinal: denies abdominal pain No nausea. No vomiting. Genitourinary: No pain while urinating. Denies blood in urine. All other negative except as mentioned in HPI Physical Examination: General Appearance: Comfortable, in no acute respiratory distress, co-operative . obese Vitals reviewed and noted as below Head; Atraumatic, normocephalic ENT: no ulcers no thrush. Tongue is midline. Oropharynx: no rash or ulcers. EYES: Pupils are equal, round and reactive to light accommodation. Eye muscles and extraocular movement intact. Sclera is anicteric. Neck; supple no lymphadenopathy, no thyromegaly or bruit Lungs: Normal respiratory rate/effort. Breath sounds bilateral decreased at ba ses with cracjkes Heart: Normal rate. s1s2 normal. No rub or gallop. Extremities: 1+ edema. No varicose veins. upper extremity edema + Neurological: Patient is alert, awake and oriented to person, place and time. No focal deficit. Strength bilateral appropriate and equal Skin: Warm and dry. Normal turgor. No rash. Palpitation: Normal elasticity for age Abdomen: Abdomen is soft/distended. Bowel sounds +. There is no abdominal tende rness, no guarding/rigidity no organomegaly Psych: lack insight and has normal affect/mood MSK: no joint tenderness or swelling. Digits and nails normal, no deformity : kidney or bladder not palpable. has andrew Labs/imaging reviewed. Past medical history, past surgical history, family history, social history, allergy reviewed and noted as below Family hx: no hx of CKD. Rest non-contributory 24 hr urine 3 gram, UA 2+ protein renal imaging unremarkable dCHF on echo Objective - Vital Signs/Intake and Output Vital Signs (last 24 hours): Temp Pulse Resp BP Pulse Ox 98.4 F 93 H 20 104/63 97 05/11/18 09:22 05/11/18 13:31 05/11/18 09:22 05/11/18 13:31 05/11/18 09:22 Intake and Output: 05/11/18 05/11/18 06:59 18:59 Intake Total 420 300 Output Total 125 300 Balance 295 0 - Medications Medications: Current Medications Amlodipine Besylate (Norvasc) 10 mg PO DAILY [facility] Last Admin: 05/11/18 10:16 Dose: 10 mg Aspirin (Aspirin) 325 mg PO DAILY [facility] Last Admin: 05/11/18 10:15 Dose: 325 mg Calcitriol (Rocaltrol) 0.25 mcg PO DAILY [facility] Last Admin: 05/11/18 10:17 Dose: 0.25 mcg Clopidogrel Bisulfate (Plavix) 75 mg PO DAILY [facility] Last Admin: 05/11/18 10:16 Dose: 75 mg Dextrose (Dextrose 50% Inj) 0 ml IV STAT PRN; Protocol PRN Reason: Hypoglycemia Protocol Dextrose (Glutose 15) 0 gm PO ONCE PRN; Protocol PRN Reason: Hypoglycemia Protocol Enalapril Maleate (Vasotec) 20 mg PO DAILY [facility] Last Admin: 05/11/18 10:17 Dose: 20 mg Epoetin Cristóbal (Procrit) 8,000 unit SC MWF [facility] Last Admin: 05/10/18 14:24 Dose: 8,000 unit Ergocalciferol (Drisdol 50,000 Intl Units Cap) 1 cap PO Q7D [facility] Ferrous Gluconate (Fergon) 324 mg PO TID [facility] Last Admin: 05/11/18 13:39 Dose: 324 mg Furosemide (Lasix) 40 mg IVP DAILY [facility] Last Admin: 05/11/18 10:16 Dose: 40 mg Glimepiride (Amaryl) 4 mg PO BID [facility] Last Admin: 05/11/18 10:14 Dose: 4 mg Glucagon (Glucagen Diagnostic Kit) 0 mg IM STAT PRN; Protocol PRN Reason: Hypoglycemia Protocol Heparin Sodium (Porcine) (Heparin) 5,000 units SC Q12 [facility] Last Admin: 05/11/18 10:16 Dose: Not Given Hydralazine HCl (Apresoline) 100 mg PO TID [facility] Last Admin: 05/11/18 13:39 Dose: 100 mg Dextrose (Dextrose 5% In Water 1000 Ml) 1,000 mls @ 0 mls/hr IV .Q0M PRN; Protocol PRN Reason: Hypoglycemia Protocol Ferric Sodium Gluconate Complex 125 mg/ Sodium Chloride 110 mls @ 110 mls/hr IVPB DAILY [facility] Stop: 05/18/18 10:31 Last Admin: 05/11/18 11:41 Dose: 110 mls/hr Insulin Aspart (Novolog Mix 70/30 (70/30 Units/Ml)) 10 units SC ACBD [facility] Last Admin: 05/11/18 08:48 Dose: 10 units Isosorbide Mononitrate (Imdur Er) 60 mg PO DAILY [facility] Last Admin: 05/11/18 10:16 Dose: 60 mg Metolazone (Zaroxolyn) 5 mg PO DAILY [facility] Last Admin: 05/11/18 10:17 Dose: 5 mg Rosuvastatin Calcium (Crestor) 5 mg PO HS [facility] Last Admin: 05/10/18 22:00 Dose: 5 mg Tamsulosin HCl (Flomax) 0.4 mg PO DAILY [facility] Last Admin: 05/11/18 10:15 Dose: 0.4 mg Vitamin B Complex/Vit C/Folic Acid (Nephro-Lupillo) 1 tab PO 0800 [facility] Last Admin: 05/11/18 08:48 Dose: 1 tab - Labs Labs: 05/10/18 11:21 05/10/18 07:37 PT 12.0 SECONDS (9.7-12.2) 05/08/18 13:53 INR 1.1 05/08/18 13:53 APTT 32 SECONDS (21-34) 05/08/18 13:53
[2018-05-11 17:59] LABS: BASO # 0.1 K/uL (0.0-0.2); BASO % 0.9 % (0.0-2.0); EOS # 0.4 K/uL (0.0-0.7); EOS % 4.3 % (0.0-4.0); HEMOGLOBIN 8.5 g/dL (12.0-18.0); LYMPH # 1.1 K/uL (1.0-4.3); LYMPH % 12.6 % (20.0-40.0); MEAN CELL VOLUME 82.6 fL (80.0-94.0); MEAN CORPUSCULAR HEMOGLOBIN 27.2 pg (27.0-31.0); MEAN PLATELET VOLUME 7.8 fL (7.2-11.7); MONO # 0.9 K/uL (0.0-0.8); MONO % 10.2 % (0.0-10.0); NEUT # 6.3 K/uL (1.8-7.0); RBC 3.12 Mil/uL (4.40-5.90); RED CELL DISTRIBUTION WIDTH 14.1 % (11.5-14.5); WHITE BLOOD COUNT 8.8 K/uL (4.8-10.8)
[2018-05-11 18:16] LABS: ALBUMIN 3.4 g/dL (3.5-5.0); CALCIUM 8.1 mg/dl (8.6-10.4)
--- NOTE | 2018-05-11 20:11 | CP.PCM.PN ---
Subjective - Date & Time of Evaluation Date of Evaluation: 05/11/18 Time of Evaluation: 10:15 - Subjective Subjective: clinically same Objective - Vital Signs/Intake and Output Vital Signs (last 24 hours): Temp Pulse Resp BP Pulse Ox 97.9 F 93 H 20 120/65 97 05/11/18 16:22 05/11/18 16:22 05/11/18 16:22 05/11/18 16:22 05/11/18 16:22 Intake and Output: 05/11/18 05/12/18 18:59 06:59 Intake Total 300 Output Total 300 Balance 0 - Medications Medications: Current Medications Amlodipine Besylate (Norvasc) 10 mg PO DAILY [facility] Last Admin: 05/11/18 10:16 Dose: 10 mg Aspirin (Aspirin) 325 mg PO DAILY [facility] Last Admin: 05/11/18 10:15 Dose: 325 mg Calcitriol (Rocaltrol) 0.25 mcg PO DAILY [facility] Last Admin: 05/11/18 10:17 Dose: 0.25 mcg Clopidogrel Bisulfate (Plavix) 75 mg PO DAILY [facility] Last Admin: 05/11/18 10:16 Dose: 75 mg Dextrose (Dextrose 50% Inj) 0 ml IV STAT PRN; Protocol PRN Reason: Hypoglycemia Protocol Dextrose (Glutose 15) 0 gm PO ONCE PRN; Protocol PRN Reason: Hypoglycemia Protocol Enalapril Maleate (Vasotec) 20 mg PO DAILY [facility] Last Admin: 05/11/18 10:17 Dose: 20 mg Epoetin Cristóbal (Procrit) 8,000 unit SC MWF [facility] Last Admin: 05/10/18 14:24 Dose: 8,000 unit Ergocalciferol (Drisdol 50,000 Intl Units Cap) 1 cap PO Q7D [facility] Ferrous Gluconate (Fergon) 324 mg PO TID [facility] Last Admin: 05/11/18 17:39 Dose: 324 mg Furosemide (Lasix) 40 mg IVP DAILY [facility] Last Admin: 05/11/18 10:16 Dose: 40 mg Glimepiride (Amaryl) 4 mg PO BID [facility] Last Admin: 05/11/18 17:39 Dose: 4 mg Glucagon (Glucagen Diagnostic Kit) 0 mg IM STAT PRN; Protocol PRN Reason: Hypoglycemia Protocol Heparin Sodium (Porcine) (Heparin) 5,000 units SC Q12 [facility] Last Admin: 05/11/18 10:16 Dose: Not Given Hydralazine HCl (Apresoline) 100 mg PO TID [facility] Last Admin: 05/11/18 17:39 Dose: 100 mg Dextrose (Dextrose 5% In Water 1000 Ml) 1,000 mls @ 0 mls/hr IV .Q0M PRN; Protocol PRN Reason: Hypoglycemia Protocol Ferric Sodium Gluconate Complex 125 mg/ Sodium Chloride 110 mls @ 110 mls/hr IVPB DAILY [facility] Stop: 05/18/18 10:31 Last Admin: 05/11/18 11:41 Dose: 110 mls/hr Insulin Aspart (Novolog Mix 70/30 (70/30 Units/Ml)) 10 units SC ACBD [facility] Last Admin: 05/11/18 17:41 Dose: 10 units Isosorbide Mononitrate (Imdur Er) 60 mg PO DAILY [facility] Last Admin: 05/11/18 10:16 Dose: 60 mg Metolazone (Zaroxolyn) 5 mg PO DAILY [facility] Last Admin: 05/11/18 10:17 Dose: 5 mg Rosuvastatin Calcium (Crestor) 5 mg PO HS [facility] Last Admin: 05/10/18 22:00 Dose: 5 mg Tamsulosin HCl (Flomax) 0.4 mg PO DAILY [facility] Last Admin: 05/11/18 10:15 Dose: 0.4 mg Vitamin B Complex/Vit C/Folic Acid (Nephro-Lupillo) 1 tab PO 0800 [facility] Last Admin: 05/11/18 08:48 Dose: 1 tab - Labs Labs: 05/11/18 17:51 05/11/18 17:51 PT 12.0 SECONDS (9.7-12.2) 05/08/18 13:53 INR 1.1 05/08/18 13:53 APTT 32 SECONDS (21-34) 05/08/18 13:53 - Constitutional Appears: Well - Head Exam Head Exam: ATRAUMATIC, NORMAL INSPECTION, NORMOCEPHALIC - Eye Exam Eye Exam: EOMI, Normal appearance, PERRL Pupil Exam: NORMAL ACCOMODATION, PERRL - ENT Exam ENT Exam: Mucous Membranes Moist, Normal Exam - Neck Exam Neck Exam: Full ROM, Normal Inspection. absent: Lymphadenopathy - Respiratory Exam Respiratory Exam: Decreased Breath Sounds - Cardiovascular Exam Cardiovascular Exam: REGULAR RHYTHM, +S1, +S2 - GI/Abdominal Exam GI & Abdominal Exam: Soft, Diminished Bowel Sounds - Rectal Exam Rectal Exam: Deferred
[2018-05-12] MEDS: Multivitamin Vitamin B Complex (Nephro-Vite) Tab PO SCH (08:42)
[2018-05-12] MEDS: (Novolog Mix 70/30) Insulin Aspart/Insulin Aspar 100 units/ml SC SCH ×2 (08:42→16:50)
[2018-05-12] MEDS: Ferric Sodium Gluconat Complex 125 MG in Sodium Chloride 0.9% 100 ML IVPB SCH (09:23)
[2018-05-12] MEDS ORDERED: Ergocalciferol 50,000 Intl Units Cap PO SCH (10:00)
--- NOTE | 2018-05-12 10:04 | CP.PCM.PN ---
Subjective - Date & Time of Evaluation Date of Evaluation: 05/12/18 Time of Evaluation: 10:03 - Subjective Subjective: Nephrology Consultation Note: Assessment: Stable CHF exacerbation with fluid overload with uncontrolled severe HTN Diabetic chronic Kidney Disease (E11.22) Hypertensive Chronic Kidney Disease (I12.9) Chronic Kidney Disease (N18.4) Stage 4 with 3 gram proteinuria (R80.9) ? due to DM/HTN/morbid obesity Anemia (D64.9) Plan No acute need for renal replacement therapy at this time. Hypertension control with meds as ordered. Maintain hemodynamics stable. Avoid hypotension. Patient on enalapril. increased hydralazine and added imdur Monitor Input/Output, daily weights and renal function with basic metabolic panel continue diuretics with lasix and metolazone Cardiology following continue with flomax added iron, MVI and epogen. PRBC as needed. check bladder scan r/o overflow incontinence. d/w RN Check urine analysis, spot protein/creatinine, albumin/creatinine ratio, bladder sonogram Check GN work up as C3, C4, TALIB, Anti dsDNA, HIV/Hep B and Hep C serology Anemia work up with TSAT/Ferritin/Vitamin B12/folate, serum protein electrophoresis with immunofixation, serum free light chain assay ([place]/Lambda) Check for 25-OH vitamin D, iPTH, phosphorus level. Secondary HTN work up with plasma renin/aldosterone Dose meds/antibiotics for reduced GFR. Avoid fleets enema/magnesium based laxati ves. Avoid nephrotoxins/NSAIDs/ iodinated contrast (unless needed emergently) Glycemic control Further work up/management as per primary team save non-dominant arm from phlebotomy/IV lines for future AV access. Thanks for allowing me to participate in care of your patient. Will follow patie nt with you. Please call if any Qs. had d/w team Dr J Carlos Harrington Office: [phone] Chief Complaint; leg swelling Reason for consult: CKD 4 HPI: Pt is a 77 M with hx of diabetes Mellitus (5-7 years), hypertension (years) diastolic CHF, morbid obesity, CKD 4 with baseline cr 3.8-4.0 with 3 gram proteinuria, anemia presented with complaints of SOB and leg swelling and being managed for CHF exacerbation. Denies OTC/herbal meds or NSAIDs No recent iodinated contrast exposure. No obvious episodes of low BP. BP mostly high pt not aware about kidney disease in past. now he feels better. denies urine complaint but uncomfortable with andrew catheter and want it to be removed. ROS: Cardiovascular: No chest pain. Pulmonary: No shortness of breath now Gastrointestinal: denies abdominal pain No nausea. No vomiting. Genitourinary: No pain while urinating. Denies blood in urine. has urine inc ontinence All other negative except as mentioned in HPI Physical Examination: General Appearance: Comfortable, in no acute respiratory distress, co-operative . obese Vitals reviewed and noted as below Head; Atraumatic, normocephalic ENT: no ulcers no thrush. Tongue is midline. Oropharynx: no rash or ulcers. EYES: Pupils are equal, round and reactive to light accommodation. Eye muscles and extraocular movement intact. Sclera is anicteric. Neck; supple no lymphadenopathy, no thyromegaly or bruit Lungs: Normal respiratory rate/effort. Breath sounds bilateral decreased at bases with cracjkes Heart: Normal rate. s1s2 normal. No rub or gallop. Extremities: 1+ edema. No varicose veins. upper extremity edema + Neurological: Patient is alert, awake and oriented to person, place and time. No focal deficit. Strength bilateral appropriate and equal Skin: Warm and dry. Normal turgor. No rash. Palpitation: Normal elasticity for age Abdomen: Abdomen is soft/distended. Bowel sounds +. There is no abdominal tenderness, no guarding/rigidity no organomegaly Psych: lack insight and has normal affect/mood MSK: no joint tenderness or swelling. Digits and nails normal, no deformity : kidney or bladder not palpable. Labs/imaging reviewed. Past medical history, past surgical history, family history, social history, allergy reviewed and noted as below Family hx: no hx of CKD. Rest non-contributory 24 hr urine 3 gram, UA 2+ protein renal imaging unremarkable dCHF on echo Objective - Vital Signs/Intake and Output Vital Signs (last 24 hours): Temp Pulse Resp BP Pulse Ox 99.1 F 102 H 20 132/74 96 05/12/18 09:12 05/12/18 09:12 05/12/18 09:12 05/12/18 09:12 05/12/18 09:12 Intake and Output: 05/12/18 05/12/18 06:59 18:59 Intake Total 240 Output Total 250 Balance -10 - Medications Medications: Current Medications Amlodipine Besylate (Norvasc) 10 mg PO DAILY [facility] Last Admin: 05/11/18 10:16 Dose: 10 mg Aspirin (Aspirin) 325 mg PO DAILY [facility] Last Admin: 05/11/18 10:15 Dose: 325 mg Calcitriol (Rocaltrol) 0.25 mcg PO DAILY [facility] Last Admin: 05/11/18 10:17 Dose: 0.25 mcg Clopidogrel Bisulfate (Plavix) 75 mg PO DAILY [facility] Last Admin: 05/11/18 10:16 Dose: 75 mg Dextrose (Dextrose 50% Inj) 0 ml IV STAT PRN; Protocol PRN Reason: Hypoglycemia Protocol Dextrose (Glutose 15) 0 gm PO ONCE PRN; Protocol PRN Reason: Hypoglycemia Protocol Enalapril Maleate (Vasotec) 20 mg PO DAILY [facility] Last Admin: 05/11/18 10:17 Dose: 20 mg Epoetin Cristóbal (Procrit) 8,000 unit SC MWF [facility] Last Admin: 05/10/18 14:24 Dose: 8,000 unit Ergocalciferol (Drisdol 50,000 Intl Units Cap) 1 cap PO Q7D [facility] Ferrous Gluconate (Fergon) 324 mg PO TID [facility] Last Admin: 05/11/18 17:39 Dose: 324 mg Furosemide (Lasix) 40 mg IVP DAILY [facility] Last Admin: 05/11/18 10:16 Dose: 40 mg Glimepiride (Amaryl) 4 mg PO BID [facility] Last Admin: 05/11/18 17:39 Dose: 4 mg Glucagon (Glucagen Diagnostic Kit) 0 mg IM STAT PRN; Protocol PRN Reason: Hypoglycemia Protocol Heparin Sodium (Porcine) (Heparin) 5,000 units SC Q12 [facility] Last Admin: 05/11/18 21:14 Dose: 5,000 units Hydralazine HCl (Apresoline) 100 mg PO TID [facility] Last Admin: 05/11/18 17:39 Dose: 100 mg Dextrose (Dextrose 5% In Water 1000 Ml) 1,000 mls @ 0 mls/hr IV .Q0M PRN; Protocol PRN Reason: Hypoglycemia Protocol Ferric Sodium Gluconate Complex 125 mg/ Sodium Chloride 110 mls @ 110 mls/hr IVPB DAILY [facility] Stop: 05/18/18 10:31 Last Admin: 05/12/18 09:23 Dose: 110 mls/hr Insulin Aspart (Novolog Mix 70/30 (70/30 Units/Ml)) 10 units SC ACBD [facility] Last Admin: 05/12/18 08:42 Dose: 10 units Isosorbide Mononitrate (Imdur Er) 60 mg PO DAILY [facility] Last Admin: 05/11/18 10:16 Dose: 60 mg Metolazone (Zaroxolyn) 5 mg PO DAILY [facility] Last Admin: 05/11/18 10:17 Dose: 5 mg Rosuvastatin Calcium (Crestor) 5 mg PO HS [facility] Last Admin: 05/11/18 21:13 Dose: 5 mg Tamsulosin HCl (Flomax) 0.4 mg PO DAILY [facility] Last Admin: 05/11/18 10:15 Dose: 0.4 mg Vitamin B Complex/Vit C/Folic Acid (Nephro-Lupillo) 1 tab PO 0800 [facility] Last Admin: 05/12/18 08:42 Dose: 1 tab - Labs Labs: 05/11/18 17:51 05/11/18 17:51 PT 12.0 SECONDS (9.7-12.2) 05/08/18 13:53 INR 1.1 05/08/18 13:53 APTT 32 SECONDS (21-34) 05/08/18 13:53
[2018-05-12] MEDS: metOLazone 5 MG TAB PO SCH (10:43)
--- NOTE | 2018-05-12 13:11 | CP.PCM.PN ---
Subjective - Date & Time of Evaluation Date of Evaluation: 05/12/18 Time of Evaluation: 11:30 - Subjective Subjective: clinically same Objective - Vital Signs/Intake and Output Vital Signs (last 24 hours): Temp Pulse Resp BP Pulse Ox 99.1 F 102 H 20 132/74 96 05/12/18 09:12 05/12/18 09:12 05/12/18 09:12 05/12/18 10:42 05/12/18 09:12 Intake and Output: 05/12/18 05/12/18 06:59 18:59 Intake Total 240 Output Total 250 Balance -10 - Medications Medications: Current Medications Amlodipine Besylate (Norvasc) 10 mg PO DAILY [facility] Last Admin: 05/12/18 10:42 Dose: 10 mg Aspirin (Aspirin) 325 mg PO DAILY [facility] Last Admin: 05/12/18 10:41 Dose: 325 mg Calcitriol (Rocaltrol) 0.25 mcg PO DAILY [facility] Last Admin: 05/12/18 10:42 Dose: 0.25 mcg Clopidogrel Bisulfate (Plavix) 75 mg PO DAILY [facility] Last Admin: 05/12/18 10:42 Dose: 75 mg Dextrose (Dextrose 50% Inj) 0 ml IV STAT PRN; Protocol PRN Reason: Hypoglycemia Protocol Dextrose (Glutose 15) 0 gm PO ONCE PRN; Protocol PRN Reason: Hypoglycemia Protocol Enalapril Maleate (Vasotec) 20 mg PO DAILY [facility] Last Admin: 05/12/18 10:42 Dose: 20 mg Epoetin Cristóbal (Procrit) 8,000 unit SC MWF [facility] Last Admin: 05/10/18 14:24 Dose: 8,000 unit Ergocalciferol (Drisdol 50,000 Intl Units Cap) 1 cap PO Q7D [facility] Last Admin: 05/12/18 10:41 Dose: 1 cap Ferrous Gluconate (Fergon) 324 mg PO TID [facility] Last Admin: 05/12/18 10:41 Dose: 324 mg Furosemide (Lasix) 40 mg IVP DAILY [facility] Last Admin: 05/12/18 10:40 Dose: 40 mg Glimepiride (Amaryl) 4 mg PO BID [facility] Last Admin: 05/12/18 10:41 Dose: 4 mg Glucagon (Glucagen Diagnostic Kit) 0 mg IM STAT PRN; Protocol PRN Reason: Hypoglycemia Protocol Heparin Sodium (Porcine) (Heparin) 5,000 units SC Q12 [facility] Last Admin: 05/12/18 10:42 Dose: 5,000 units Hydralazine HCl (Apresoline) 100 mg PO TID [facility] Last Admin: 05/12/18 10:41 Dose: 100 mg Dextrose (Dextrose 5% In Water 1000 Ml) 1,000 mls @ 0 mls/hr IV .Q0M PRN; Protocol PRN Reason: Hypoglycemia Protocol Ferric Sodium Gluconate Complex 125 mg/ Sodium Chloride 110 mls @ 110 mls/hr IVPB DAILY [facility] Stop: 05/18/18 10:31 Last Admin: 05/12/18 09:23 Dose: 110 mls/hr Insulin Aspart (Novolog Mix 70/30 (70/30 Units/Ml)) 10 units SC ACBD [facility] Last Admin: 05/12/18 08:42 Dose: 10 units Isosorbide Mononitrate (Imdur Er) 60 mg PO DAILY [facility] Last Admin: 05/12/18 10:45 Dose: 60 mg Metolazone (Zaroxolyn) 5 mg PO DAILY [facility] Last Admin: 05/12/18 10:43 Dose: 5 mg Rosuvastatin Calcium (Crestor) 5 mg PO HS [facility] Last Admin: 05/11/18 21:13 Dose: 5 mg Tamsulosin HCl (Flomax) 0.4 mg PO DAILY [facility] Last Admin: 05/12/18 10:42 Dose: 0.4 mg Vitamin B Complex/Vit C/Folic Acid (Nephro-Lupillo) 1 tab PO 0800 [facility] Last Admin: 05/12/18 08:42 Dose: 1 tab - Labs Labs: 05/11/18 17:51 05/11/18 17:51 PT 12.0 SECONDS (9.7-12.2) 05/08/18 13:53 INR 1.1 05/08/18 13:53 APTT 32 SECONDS (21-34) 05/08/18 13:53 - Constitutional Appears: Well - Head Exam Head Exam: ATRAUMATIC, NORMAL INSPECTION, NORMOCEPHALIC - Eye Exam Eye Exam: EOMI, Normal appearance, PERRL Pupil Exam: NORMAL ACCOMODATION, PERRL - ENT Exam ENT Exam: Mucous Membranes Moist, Normal Exam - Neck Exam Neck Exam: Full ROM, Normal Inspection. absent: Lymphadenopathy - Respiratory Exam Respiratory Exam: Decreased Breath Sounds - Cardiovascular Exam Cardiovascular Exam: REGULAR RHYTHM, +S1, +S2 - GI/Abdominal Exam GI & Abdominal Exam: Soft, Diminished Bowel Sounds - Rectal Exam Rectal Exam: Deferred
--- NOTE | 2018-05-12 13:37 | US ---
Urinary bladder HISTORY: Chronic kidney disease. Please evaluate for postvoid residual. COMPARISON: 11/14/2016 Technique: Real-time sonography was performed through the urinary bladder. Findings: Heterogeneous and prominent prostate measuring up to 4.3 x 4.0 x 4.0 centimeters. Prevoid bladder volume of 340 cc. Patient was unable to void. No gross urinary bladder wall thickening. No gross bladder calculi identified. Bilateral ureteral jets were visualized. Impression: Patient is unable to void, limiting evaluation for postvoid residual. Prevoid bladder volume of 340 cc. Heterogeneous and prominent prostate as described above.
[2018-05-13] MEDS: (Novolog Mix 70/30) Insulin Aspart/Insulin Aspar 100 units/ml SC SCH ×2 (08:07→17:29)
[2018-05-13] MEDS: Multivitamin Vitamin B Complex (Nephro-Vite) Tab PO SCH (08:07)
[2018-05-13] MEDS: Ferric Sodium Gluconat Complex 125 MG in Sodium Chloride 0.9% 100 ML IVPB SCH (11:00)
[2018-05-13] MEDS: EPOETIN ALFA 4,000 UNIT/ML ML Dialysis SC SCH (11:01)
[2018-05-13] MEDS: metOLazone 5 MG TAB PO SCH (11:01)
[2018-05-13] MEDS ORDERED: Magnesium Hydroxide Susp 30 ml UD PO ONE (11:23)
--- NOTE | 2018-05-13 14:29 | CP.PCM.PN ---
Subjective - Date & Time of Evaluation Date of Evaluation: 05/13/18 Time of Evaluation: 11:15 - Subjective Subjective: clinically same Objective - Vital Signs/Intake and Output Vital Signs (last 24 hours): Temp Pulse Resp BP Pulse Ox 98.3 F 71 20 163/76 H 99 05/13/18 08:28 05/13/18 08:28 05/13/18 08:28 05/13/18 11:18 05/13/18 08:28 Intake and Output: 05/13/18 05/13/18 06:59 18:59 Intake Total 570 Output Total 250 Balance 320 - Medications Medications: Current Medications Amlodipine Besylate (Norvasc) 10 mg PO DAILY [facility] Last Admin: 05/13/18 11:02 Dose: 10 mg Aspirin (Aspirin) 325 mg PO DAILY [facility] Last Admin: 05/13/18 11:02 Dose: 325 mg Calcitriol (Rocaltrol) 0.25 mcg PO DAILY [facility] Last Admin: 05/13/18 11:01 Dose: 0.25 mcg Clopidogrel Bisulfate (Plavix) 75 mg PO DAILY [facility] Last Admin: 05/13/18 11:01 Dose: 75 mg Dextrose (Dextrose 50% Inj) 0 ml IV STAT PRN; Protocol PRN Reason: Hypoglycemia Protocol Dextrose (Glutose 15) 0 gm PO ONCE PRN; Protocol PRN Reason: Hypoglycemia Protocol Docusate Sodium (Colace) 100 mg PO TID [facility] Enalapril Maleate (Vasotec) 20 mg PO DAILY [facility] Last Admin: 05/13/18 11:18 Dose: 20 mg Epoetin Cristóbal (Procrit) 8,000 unit SC MWF [facility] Last Admin: 05/13/18 11:01 Dose: 8,000 unit Ergocalciferol (Drisdol 50,000 Intl Units Cap) 1 cap PO Q7D [facility] Last Admin: 05/12/18 10:41 Dose: 1 cap Ferrous Gluconate (Fergon) 324 mg PO TID [facility] Last Admin: 05/13/18 11:02 Dose: 324 mg Furosemide (Lasix) 40 mg IVP DAILY [facility] Last Admin: 05/13/18 11:18 Dose: 40 mg Glimepiride (Amaryl) 4 mg PO BID [facility] Last Admin: 05/13/18 11:01 Dose: 4 mg Glucagon (Glucagen Diagnostic Kit) 0 mg IM STAT PRN; Protocol PRN Reason: Hypoglycemia Protocol Heparin Sodium (Porcine) (Heparin) 5,000 units SC Q12 [facility] Last Admin: 05/13/18 11:01 Dose: 5,000 units Hydralazine HCl (Apresoline) 100 mg PO TID [facility] Last Admin: 05/13/18 11:17 Dose: 100 mg Dextrose (Dextrose 5% In Water 1000 Ml) 1,000 mls @ 0 mls/hr IV .Q0M PRN; Protocol PRN Reason: Hypoglycemia Protocol Ferric Sodium Gluconate Complex 125 mg/ Sodium Chloride 110 mls @ 110 mls/hr I VPB DAILY [facility] Stop: 05/18/18 10:31 Last Admin: 05/13/18 11:00 Dose: 110 mls/hr Insulin Aspart (Novolog Mix 70/30 (70/30 Units/Ml)) 10 units SC ACBD [facility] Last Admin: 05/13/18 08:07 Dose: 10 units Isosorbide Mononitrate (Imdur Er) 60 mg PO DAILY [facility] Last Admin: 05/13/18 11:02 Dose: 60 mg Lactulose (Enulose) 20 gm PO HS [facility] Metolazone (Zaroxolyn) 5 mg PO DAILY [facility] Last Admin: 05/13/18 11:01 Dose: 5 mg Rosuvastatin Calcium (Crestor) 5 mg PO HS [facility] Last Admin: 05/12/18 21:25 Dose: 5 mg Tamsulosin HCl (Flomax) 0.4 mg PO DAILY [facility] Last Admin: 05/13/18 11:01 Dose: 0.4 mg Vitamin B Complex/Vit C/Folic Acid (Nephro-Lupillo) 1 tab PO 0800 [facility] Last Admin: 05/13/18 08:07 Dose: 1 tab - Labs Labs: 05/11/18 17:51 05/11/18 17:51 PT 12.0 SECONDS (9.7-12.2) 05/08/18 13:53 INR 1.1 05/08/18 13:53 APTT 32 SECONDS (21-34) 05/08/18 13:53 - Constitutional Appears: Well - Head Exam Head Exam: ATRAUMATIC, NORMAL INSPECTION, NORMOCEPHALIC - Eye Exam Eye Exam: EOMI, Normal appearance, PERRL Pupil Exam: NORMAL ACCOMODATION, PERRL - ENT Exam ENT Exam: Mucous Membranes Moist, Normal Exam - Neck Exam Neck Exam: Full ROM, Normal Inspection. absent: Lymphadenopathy - Respiratory Exam Respiratory Exam: Decreased Breath Sounds - Cardiovascular Exam Cardiovascular Exam: REGULAR RHYTHM, +S1, +S2 - GI/Abdominal Exam GI & Abdominal Exam: Soft, Diminished Bowel Sounds - Rectal Exam Rectal Exam: Deferred
--- NOTE | 2018-05-13 15:20 | CP.PCM.PN ---
Subjective - Date & Time of Evaluation Date of Evaluation: 05/13/18 Time of Evaluation: 15:20 - Subjective Subjective: Nephrology Consultation Note: Assessment: Stable CHF exacerbation with fluid overload with uncontrolled severe HTN: now better Diabetic chronic Kidney Disease (E11.22) Hypertensive Chronic Kidney Disease (I12.9) Chronic Kidney Disease (N18.4) Stage 4 with 3 gram proteinuria (R80.9) ? due to DM/HTN/morbid obesity Anemia (D64.9) Plan No acute need for renal replacement therapy at this time. Hypertension control with meds as ordered. Maintain hemodynamics stable. Avoid hypotension. Patient on enalapril. increased hydralazine and added imdur Monitor Input/Output, daily weights and renal function with basic metabolic panel continue diuretics with lasix and metolazone Cardiology following continue with flomax added iron, MVI and epogen. PRBC as needed. Check urine analysis, spot protein/creatinine, albumin/creatinine ratio, bladder sonogram Check GN work up as C3, C4, TALIB, Anti dsDNA, HIV/Hep B and Hep C serology Anemia work up with TSAT/Ferritin/Vitamin B12/folate, serum protein electro phoresis with immunofixation, serum free light chain assay ([place]/Lambda) Check for 25-OH vitamin D, iPTH, phosphorus level. Secondary HTN work up with plasma renin/aldosterone Dose meds/antibiotics for reduced GFR. Avoid fleets enema/magnesium based laxatives. Avoid nephrotoxins/NSAIDs/ iodinated contrast (unless needed emergently) Glycemic control Further work up/management as per primary team save non-dominant arm from phlebotomy/IV lines for future AV access. Thanks for allowing me to participate in care of your patient. Will follow patient with you. Please call if any Qs. had d/w team Dr J Carlos Harrington Office: [phone] Chief Complaint; leg swelling Reason for consult: CKD 4 HPI: Pt is a 77 M with hx of diabetes Mellitus (5-7 years), hypertension (years) diastolic CHF, morbid obesity, CKD 4 with baseline cr 3.8-4.0 with 3 gram proteinuria, anemia presented with complaints of SOB and leg swelling and being managed for CHF exacerbation. Denies OTC/herbal meds or NSAIDs No recent iodinated contrast exposure. No obvious episodes of low BP. BP mostly high pt not aware about kidney disease in past. now he feels better. denies urine complaint but uncomfortable with andrew catheter and want it to be removed. ROS: Cardiovascular: No chest pain. Pulmonary: No shortness of breath now Gastrointestinal: denies abdominal pain No nausea. No vomiting. Genitourinary: No pain while urinating. Denies blood in urine. has urine incontinence All other negative except as mentioned in HPI Physical Examination: General Appearance: Comfortable, in no acute respiratory distress, co-operative . obese Vitals reviewed and noted as below Head; Atraumatic, normocephalic ENT: no ulcers no thrush. Tongue is midline. Oropharynx: no rash or ulcers. EYES: Pupils are equal, round and reactive to light accommodation. Eye muscles and extraocular movement intact. Sclera is anicteric. Neck; supple no lymphadenopathy, no thyromegaly or bruit Lungs: Normal respiratory rate/effort. Breath sounds bilateral clearer Heart: Normal rate. s1s2 normal. No rub or gallop. Extremities: no edema. No varicose veins. Neurological: Patient is alert, awake and oriented to person, place and time. No focal deficit. Strength bilateral appropriate and equal Skin: Warm and dry. Normal turgor. No rash. Palpitation: Normal elasticity for age Abdomen: Abdomen is soft/distended. Bowel sounds +. There is no abdominal tenderness, no guarding/rigidity no organomegaly Psych: lack insight and has normal affect/mood MSK: no joint tenderness or swelling. Digits and nails normal, no deformity : kidney or bladder not palpable. Labs/imaging reviewed. Past medical history, past surgical history, family history, social history, allergy reviewed and noted as below Family hx: no hx of CKD. Rest non-contributory 24 hr urine 3 gram, UA 2+ protein renal imaging unremarkable dCHF on echo Objective - Vital Signs/Intake and Output Vital Signs (last 24 hours): Temp Pulse Resp BP Pulse Ox 98.3 F 71 20 149/77 99 05/13/18 08:28 05/13/18 08:28 05/13/18 08:28 05/13/18 14:36 05/13/18 08:28 Intake and Output: 05/13/18 05/13/18 06:59 18:59 Intake Total 570 Output Total 250 Balance 320 - Medications Medications: Current Medications Amlodipine Besylate (Norvasc) 10 mg PO DAILY [facility] Last Admin: 05/13/18 11:02 Dose: 10 mg Aspirin (Aspirin) 325 mg PO DAILY [facility] Last Admin: 05/13/18 11:02 Dose: 325 mg Calcitriol (Rocaltrol) 0.25 mcg PO DAILY [facility] Last Admin: 05/13/18 11:01 Dose: 0.25 mcg Clopidogrel Bisulfate (Plavix) 75 mg PO DAILY [facility] Last Admin: 05/13/18 11:01 Dose: 75 mg Dextrose (Dextrose 50% Inj) 0 ml IV STAT PRN; Protocol PRN Reason: Hypoglycemia Protocol Dextrose (Glutose 15) 0 gm PO ONCE PRN; Protocol PRN Reason: Hypoglycemia Protocol Docusate Sodium (Colace) 100 mg PO TID [facility] Last Admin: 05/13/18 14:35 Dose: 100 mg Enalapril Maleate (Vasotec) 20 mg PO DAILY [facility] Last Admin: 05/13/18 11:18 Dose: 20 mg Epoetin Cristóbal (Procrit) 8,000 unit SC MWF [facility] Last Admin: 05/13/18 11:01 Dose: 8,000 unit Ergocalciferol (Drisdol 50,000 Intl Units Cap) 1 cap PO Q7D [facility] Last Admin: 05/12/18 10:41 Dose: 1 cap Furosemide (Lasix) 40 mg IVP DAILY [facility] Last Admin: 05/13/18 11:18 Dose: 40 mg Glimepiride (Amaryl) 4 mg PO BID [facility] Last Admin: 05/13/18 11:01 Dose: 4 mg Glucagon (Glucagen Diagnostic Kit) 0 mg IM STAT PRN; Protocol PRN Reason: Hypoglycemia Protocol Heparin Sodium (Porcine) (Heparin) 5,000 units SC Q12 [facility] Last Admin: 05/13/18 11:01 Dose: 5,000 units Hydralazine HCl (Apresoline) 100 mg PO TID [facility] Last Admin: 05/13/18 14:36 Dose: 100 mg Dextrose (Dextrose 5% In Water 1000 Ml) 1,000 mls @ 0 mls/hr IV .Q0M PRN; Protocol PRN Reason: Hypoglycemia Protocol Ferric Sodium Gluconate Complex 125 mg/ Sodium Chloride 110 mls @ 110 mls/hr IVPB DAILY [facility] Stop: 05/18/18 10:31 Last Admin: 05/13/18 11:00 Dose: 110 mls/hr Insulin Aspart (Novolog Mix 70/30 (70/30 Units/Ml)) 10 units SC ACBD [facility] Last Admin: 05/13/18 08:07 Dose: 10 units Isosorbide Mononitrate (Imdur Er) 60 mg PO DAILY [facility] Last Admin: 05/13/18 11:02 Dose: 60 mg Lactulose (Enulose) 20 gm PO HS [facility] Metolazone (Zaroxolyn) 5 mg PO DAILY [facility] Last Admin: 05/13/18 11:01 Dose: 5 mg Rosuvastatin Calcium (Crestor) 5 mg PO HS [facility] Last Admin: 05/12/18 21:25 Dose: 5 mg Tamsulosin HCl (Flomax) 0.4 mg PO DAILY [facility] Last Admin: 05/13/18 11:01 Dose: 0.4 mg Vitamin B Complex/Vit C/Folic Acid (Nephro-Lupillo) 1 tab PO 0800 [facility] Last Admin: 05/13/18 08:07 Dose: 1 tab - Labs Labs: 05/11/18 17:51 05/11/18 17:51 PT 12.0 SECONDS (9.7-12.2) 05/08/18 13:53 INR 1.1 05/08/18 13:53 APTT 32 SECONDS (21-34) 05/08/18 13:53
[2018-05-13] MEDS: Ammonium Lactate 12% Lotion (225 g) EXT SCH (17:30)
--- NOTE | 2018-05-13 17:36 | CP.PCM.PN ---
Subjective - Date & Time of Evaluation Date of Evaluation: 05/13/18 Time of Evaluation: 17:00 - Subjective Subjective: Patient denies chest pain Objective - Vital Signs/Intake and Output Vital Signs (last 24 hours): Temp Pulse Resp BP Pulse Ox 98.6 F 65 20 160/71 H 94 L 05/13/18 15:20 05/13/18 15:50 05/13/18 15:20 05/13/18 15:20 05/13/18 15:20 Intake and Output: 05/13/18 05/13/18 06:59 18:59 Intake Total 570 Output Total 250 Balance 320 - Medications Medications: Current Medications Amlodipine Besylate (Norvasc) 10 mg PO DAILY [facility] Last Admin: 05/13/18 11:02 Dose: 10 mg Aspirin (Aspirin) 325 mg PO DAILY [facility] Last Admin: 05/13/18 11:02 Dose: 325 mg Calcitriol (Rocaltrol) 0.25 mcg PO DAILY [facility] Last Admin: 05/13/18 11:01 Dose: 0.25 mcg Clopidogrel Bisulfate (Plavix) 75 mg PO DAILY [facility] Last Admin: 05/13/18 11:01 Dose: 75 mg Dextrose (Dextrose 50% Inj) 0 ml IV STAT PRN; Protocol PRN Reason: Hypoglycemia Protocol Dextrose (Glutose 15) 0 gm PO ONCE PRN; Protocol PRN Reason: Hypoglycemia Protocol Docusate Sodium (Colace) 100 mg PO TID [facility] Last Admin: 05/13/18 17:29 Dose: 100 mg Enalapril Maleate (Vasotec) 20 mg PO DAILY [facility] Last Admin: 05/13/18 11:18 Dose: 20 mg Epoetin Cristóbal (Procrit) 8,000 unit SC MWF [facility] Last Admin: 05/13/18 11:01 Dose: 8,000 unit Ergocalciferol (Drisdol 50,000 Intl Units Cap) 1 cap PO Q7D [facility] Last Admin: 05/12/18 10:41 Dose: 1 cap Furosemide (Lasix) 40 mg IVP DAILY [facility] Last Admin: 05/13/18 11:18 Dose: 40 mg Glimepiride (Amaryl) 4 mg PO BID [facility] Last Admin: 05/13/18 17:29 Dose: 4 mg Glucagon (Glucagen Diagnostic Kit) 0 mg IM STAT PRN; Protocol PRN Reason: Hypoglycemia Protocol Heparin Sodium (Porcine) (Heparin) 5,000 units SC Q12 [facility] Last Admin: 05/13/18 11:01 Dose: 5,000 units Hydralazine HCl (Apresoline) 100 mg PO TID [facility] Last Admin: 05/13/18 17:29 Dose: 100 mg Dextrose (Dextrose 5% In Water 1000 Ml) 1,000 mls @ 0 mls/hr IV .Q0M PRN; Protocol PRN Reason: Hypoglycemia Protocol Ferric Sodium Gluconate Complex 125 mg/ Sodium Chloride 110 mls @ 110 mls/hr IVPB DAILY [facility] Stop: 05/18/18 10:31 Last Admin: 05/13/18 11:00 Dose: 110 mls/hr Insulin Aspart (Novolog Mix 70/30 (70/30 Units/Ml)) 10 units SC ACBD [facility] Last Admin: 05/13/18 17:29 Dose: 10 units Isosorbide Mononitrate (Imdur Er) 60 mg PO DAILY [facility] Last Admin: 05/13/18 11:02 Dose: 60 mg Lactic Acid (Lac-Hydrin 12% Lotion (225 G)) 0 gm EXT BID [facility] Last Admin: 05/13/18 17:30 Dose: 1 applic Lactulose (Enulose) 20 gm PO HS [facility] Metolazone (Zaroxolyn) 5 mg PO DAILY [facility] Last Admin: 05/13/18 11:01 Dose: 5 mg Rosuvastatin Calcium (Crestor) 5 mg PO HS [facility] Last Admin: 05/12/18 21:25 Dose: 5 mg Tamsulosin HCl (Flomax) 0.4 mg PO DAILY [facility] Last Admin: 05/13/18 11:01 Dose: 0.4 mg Vitamin B Complex/Vit C/Folic Acid (Nephro-Lupillo) 1 tab PO 0800 [facility] Last Admin: 05/13/18 08:07 Dose: 1 tab - Labs Labs: 05/11/18 17:51 05/11/18 17:51 PT 12.0 SECONDS (9.7-12.2) 05/08/18 13:53 INR 1.1 05/08/18 13:53 APTT 32 SECONDS (21-34) 05/08/18 13:53 - Constitutional Appears: Non-toxic - Head Exam Head Exam: NORMAL INSPECTION - Eye Exam Eye Exam: Normal appearance - ENT Exam ENT Exam: Mucous Membranes Moist - Neck Exam Neck Exam: Full ROM - Respiratory Exam Respiratory Exam: Decreased Breath Sounds - Cardiovascular Exam Cardiovascular Exam: REGULAR RHYTHM - GI/Abdominal Exam GI & Abdominal Exam: Normal Bowel Sounds - Rectal Exam Rectal Exam: Deferred - Extremities Exam Extremities Exam: Pedal Edema - Back Exam Back Exam: NORMAL INSPECTION - Neurological Exam Neurological Exam: Alert - Psychiatric Exam Psychiatric exam: Normal Affect - Skin Skin Exam: Normal Color Assessment and Plan (1) HTN (hypertension) Assessment & Plan: blood pressure control avoiding AV diaz neto due to Weckebach Status: Acute (2) CAD (coronary artery disease) Assessment & Plan: stable and without angina Status: Acute (3) Acute on chronic congestive heart failure with left ventricular diastolic dysfunction Assessment & Plan: blood pressure control Status: Acute (4) Mobitz (type) I (Wenckebach's) atrioventricular block Assessment & Plan: no indication for PPM Status: Acute
[2018-05-14] MEDS: (Novolog Mix 70/30) Insulin Aspart/Insulin Aspar 100 units/ml SC SCH ×2 (08:27→17:56)
[2018-05-14] MEDS: Multivitamin Vitamin B Complex (Nephro-Vite) Tab PO SCH (08:27)
[2018-05-14 09:56] LABS: ALPHA-1-GLOBULIN (PEP) 0.4 g/dL (0.2-0.3)
[2018-05-14] MEDS: Ammonium Lactate 12% Lotion (225 g) EXT SCH ×2 (10:35→22:29)
[2018-05-14] MEDS: Ferric Sodium Gluconat Complex 125 MG in Sodium Chloride 0.9% 100 ML IVPB SCH (10:38)
[2018-05-14] MEDS: metOLazone 5 MG TAB PO SCH (10:39)
--- NOTE | 2018-05-14 12:47 | CP.PCM.PN ---
Subjective - Date & Time of Evaluation Date of Evaluation: 05/14/18 Time of Evaluation: 12:46 - Subjective Subjective: Nephrology Consultation Note: Assessment: Stable CHF exacerbation with fluid overload with uncontrolled severe HTN: now better Diabetic chronic Kidney Disease (E11.22) Hypertensive Chronic Kidney Disease (I12.9) Chronic Kidney Disease (N18.4) Stage 4 with 3 gram proteinuria (R80.9) ? due to DM/HTN/morbid obesity Anemia (D64.9) Plan no new labs, check labs in AM No acute need for renal replacement therapy at this time. Hypertension control with meds as ordered. Maintain hemodynamics stable. Avoid hypotension. Patient on enalapril. increased hydralazine and added imdur Monitor Input/Output, daily weights and renal function with basic metabolic panel continue diuretics with lasix and metolazone Cardiology following continue with flomax added iron, MVI and epogen. PRBC as needed. Check urine analysis, spot protein/creatinine, albumin/creatinine ratio, bladder sonogram Check GN work up as C3, C4, TALIB, Anti dsDNA, HIV/Hep B and Hep C serology Anemia work up with TSAT/Ferritin/Vitamin B12/folate, serum protein electrophoresis with immunofixation, serum free light chain assay ([place]/Lambda) Check for 25-OH vitamin D, iPTH, phosphorus level. Secondary HTN work up with plasma renin/aldosterone Dose meds/antibiotics for reduced GFR. Avoid fleets enema/magnesium based laxatives. Avoid nephrotoxins/NSAIDs/ iodinated contrast (unless needed emergently) Glycemic control Further work up/management as per primary team save non-dominant arm from phlebotomy/IV lines for future AV access. Thanks for allowing me to participate in care of your patient. Will follow patient with you. Please call if any Qs. had d/w team Dr J Carlos Harrington Office: [phone] Chief Complaint; leg swelling Reason for consult: CKD 4 HPI: Pt is a 77 M with hx of diabetes Mellitus (5-7 years), hypertension (years) diastolic CHF, morbid obesity, CKD 4 with baseline cr 3.8-4.0 with 3 gram proteinuria, anemia presented with complaints of SOB and leg swelling and being managed for CHF exacerbation. Denies OTC/herbal meds or NSAIDs No recent iodinated contrast exposure. No obvious episodes of low BP. BP mostly high pt not aware about kidney disease in past. now he feels better. denies urine complaint but uncomfortable with andrew catheter and want it to be removed. ROS: Cardiovascular: No chest pain. Pulmonary: No shortness of breath now Gastrointestinal: denies abdominal pain No nausea. No vomiting. Genitourinary: No pain while urinating. Denies blood in urine. has urine incontinence All other negative except as mentioned in HPI Physical Examination: General Appearance: Comfortable, in no acute respiratory distress, co-operative . obese Vitals reviewed and noted as below Head; Atraumatic, normocephalic ENT: no ulcers no thrush. Tongue is midline. Oropharynx: no rash or ulcers. EYES: Pupils are equal, round and reactive to light accommodation. Eye muscles and extraocular movement intact. Sclera is anicteric. Neck; supple no lymphadenopathy, no thyromegaly or bruit Lungs: Normal respiratory rate/effort. Breath sounds bilateral clearer Heart: Normal rate. s1s2 normal. No rub or gallop. Extremities: no edema. No varicose veins. Neurological: Patient is alert, awake and oriented to person, place and time. No focal deficit. Strength bilateral appropriate and equal Skin: Warm and dry. Normal turgor. No rash. Palpitation: Normal elasticity for age Abdomen: Abdomen is soft/distended. Bowel sounds +. There is no abdominal tenderness, no guarding/rigidity no organomegaly Psych: lack insight and has normal affect/mood MSK: no joint tenderness or swelling. Digits and nails normal, no deformity : kidney or bladder not palpable. Labs/imaging reviewed. Past medical history, past surgical history, family history, social history, allergy reviewed and noted as below Family hx: no hx of CKD. Rest non-contributory 24 hr urine 3 gram, UA 2+ protein renal imaging unremarkable dCHF on echo Objective - Vital Signs/Intake and Output Vital Signs (last 24 hours): Temp Pulse Resp BP Pulse Ox 98.9 F 103 H 20 122/62 98 05/14/18 08:44 05/14/18 08:44 05/14/18 08:44 05/14/18 10:34 05/14/18 08:44 Intake and Output: 05/14/18 05/14/18 06:59 18:59 Intake Total 120 Balance 120 - Medications Medications: Current Medications Amlodipine Besylate (Norvasc) 10 mg PO DAILY [facility] Last Admin: 05/14/18 10:34 Dose: 10 mg Aspirin (Aspirin) 325 mg PO DAILY [facility] Last Admin: 05/14/18 10:34 Dose: 325 mg Calcitriol (Rocaltrol) 0.25 mcg PO DAILY [facility] Last Admin: 05/14/18 10:34 Dose: 0.25 mcg Clopidogrel Bisulfate (Plavix) 75 mg PO DAILY [facility] Last Admin: 05/14/18 10:34 Dose: 75 mg Dextrose (Dextrose 50% Inj) 0 ml IV STAT PRN; Protocol PRN Reason: Hypoglycemia Protocol Dextrose (Glutose 15) 0 gm PO ONCE PRN; Protocol PRN Reason: Hypoglycemia Protocol Docusate Sodium (Colace) 100 mg PO TID [facility] Last Admin: 05/14/18 10:34 Dose: 100 mg Enalapril Maleate (Vasotec) 20 mg PO DAILY [facility] Last Admin: 05/14/18 10:34 Dose: 20 mg Epoetin Cristóbal (Procrit) 8,000 unit SC MWF [facility] Last Admin: 05/13/18 11:01 Dose: 8,000 unit Ergocalciferol (Drisdol 50,000 Intl Units Cap) 1 cap PO Q7D [facility] Last Admin: 05/12/18 10:41 Dose: 1 cap Furosemide (Lasix) 40 mg IVP DAILY [facility] Last Admin: 05/14/18 10:34 Dose: 40 mg Glimepiride (Amaryl) 4 mg PO BID [facility] Last Admin: 05/14/18 10:34 Dose: 4 mg Glucagon (Glucagen Diagnostic Kit) 0 mg IM STAT PRN; Protocol PRN Reason: Hypoglycemia Protocol Heparin Sodium (Porcine) (Heparin) 5,000 units SC Q12 [facility] Last Admin: 05/14/18 10:35 Dose: 5,000 units Hydralazine HCl (Apresoline) 100 mg PO TID [facility] Last Admin: 05/14/18 10:34 Dose: 100 mg Dextrose (Dextrose 5% In Water 1000 Ml) 1,000 mls @ 0 mls/hr IV .Q0M PRN; Protocol PRN Reason: Hypoglycemia Protocol Ferric Sodium Gluconate Complex 125 mg/ Sodium Chloride 110 mls @ 110 mls/hr IVPB DAILY [facility] Stop: 05/18/18 10:31 Last Admin: 05/14/18 10:38 Dose: 110 mls/hr Insulin Aspart (Novolog Mix 70/30 (70/30 Units/Ml)) 10 units SC ACBD [facility] Last Admin: 05/14/18 08:27 Dose: 10 units Isosorbide Mononitrate (Imdur) 60 mg PO DAILY [facility] Last Admin: 05/14/18 10:34 Dose: 60 mg Lactic Acid (Lac-Hydrin 12% Lotion (225 G)) 0 gm EXT BID [facility] Last Admin: 05/14/18 10:35 Dose: 1 applic Lactulose (Enulose) 20 gm PO HS [facility] Last Admin: 05/13/18 22:20 Dose: 20 gm Metolazone (Zaroxolyn) 5 mg PO DAILY [facility] Last Admin: 05/14/18 10:39 Dose: 5 mg Rosuvastatin Calcium (Crestor) 5 mg PO HS [facility] Last Admin: 05/13/18 22:21 Dose: 5 mg Tamsulosin HCl (Flomax) 0.4 mg PO DAILY [facility] Last Admin: 05/14/18 10:34 Dose: 0.4 mg Vitamin B Complex/Vit C/Folic Acid (Nephro-Lupillo) 1 tab PO 0800 [facility] Last Admin: 05/14/18 08:27 Dose: 1 tab - Labs Labs: 05/11/18 17:51 05/11/18 17:51 PT 12.0 SECONDS (9.7-12.2) 05/08/18 13:53 INR 1.1 05/08/18 13:53 APTT 32 SECONDS (21-34) 05/08/18 13:53
[2018-05-14 14:31] LABS: BASO # 0.1 K/uL (0.0-0.2); EOS # 0.3 K/uL (0.0-0.7); EOS % 2.2 % (0.0-4.0); HEMOGLOBIN 8.3 g/dL (12.0-18.0); LYMPH # 1.3 K/uL (1.0-4.3); LYMPH % 9.3 % (20.0-40.0); MEAN CELL VOLUME 82.8 fL (80.0-94.0); MEAN CORPUSCULAR HGB CONC 32.6 g/dL (33.0-37.0); MEAN PLATELET VOLUME 7.5 fL (7.2-11.7); MONO # 1.5 K/uL (0.0-0.8); MONO % 10.7 % (0.0-10.0); NEUT # 10.7 K/uL (1.8-7.0); NEUT % 76.8 % (50.0-75.0); NRBC % 0.1 % (0.0-2.0); PLATELET COUNT 382 K/uL (130-400); RBC 3.09 Mil/uL (4.40-5.90); RED CELL DISTRIBUTION WIDTH 13.9 % (11.5-14.5)
[2018-05-14 14:36] LABS: WHITE BLOOD COUNT 13.9 K/uL (4.8-10.8)
[2018-05-14 15:23] LABS: LYMPHOCYTE 6 % (20-40); MONOCYTE 8 % (0-10); NEUTROPHIL 86 % (50-75); PLATELET ESTIMATE NORMAL (NORMAL); TOTAL CELLS COUNTED 100
[2018-05-14 15:24] LABS: HYPOCHROMIC SLIGHT; POLYCHROMIC SLIGHT
[2018-05-14 15:44] LABS: CALCIUM 8.3 mg/dl (8.6-10.4)
--- NOTE | 2018-05-14 17:21 | CP.PCM.PN ---
Subjective - Date & Time of Evaluation Date of Evaluation: 05/14/18 Time of Evaluation: 09:00 - Subjective Subjective: clinically same Objective - Vital Signs/Intake and Output Vital Signs (last 24 hours): Temp Pulse Resp BP Pulse Ox 97.4 F L 94 H 20 132/75 97 05/14/18 15:49 05/14/18 15:49 05/14/18 15:49 05/14/18 15:49 05/14/18 15:49 Intake and Output: 05/14/18 05/14/18 06:59 18:59 Intake Total 120 500 Balance 120 500 - Medications Medications: Current Medications Aspirin (Aspirin) 325 mg PO DAILY [facility] Last Admin: 05/14/18 10:34 Dose: 325 mg Calcitriol (Rocaltrol) 0.25 mcg PO DAILY [facility] Last Admin: 05/14/18 10:34 Dose: 0.25 mcg Clopidogrel Bisulfate (Plavix) 75 mg PO DAILY [facility] Last Admin: 05/14/18 10:34 Dose: 75 mg Dextrose (Dextrose 50% Inj) 0 ml IV STAT PRN; Protocol PRN Reason: Hypoglycemia Protocol Dextrose (Glutose 15) 0 gm PO ONCE PRN; Protocol PRN Reason: Hypoglycemia Protocol Docusate Sodium (Colace) 100 mg PO TID [facility] Last Admin: 05/14/18 13:27 Dose: 100 mg Enalapril Maleate (Vasotec) 20 mg PO DAILY [facility] Last Admin: 05/14/18 10:34 Dose: 20 mg Epoetin Cristóbal (Procrit) 8,000 unit SC MWF [facility] Last Admin: 05/13/18 11:01 Dose: 8,000 unit Ergocalciferol (Drisdol 50,000 Intl Units Cap) 1 cap PO Q7D [facility] Last Admin: 05/12/18 10:41 Dose: 1 cap Furosemide (Lasix) 40 mg IVP DAILY [facility] Last Admin: 05/14/18 10:34 Dose: 40 mg Glimepiride (Amaryl) 4 mg PO BID [facility] Last Admin: 05/14/18 10:34 Dose: 4 mg Glucagon (Glucagen Diagnostic Kit) 0 mg IM STAT PRN; Protocol PRN Reason: Hypoglycemia Protocol Heparin Sodium (Porcine) (Heparin) 5,000 units SC Q12 [facility] Last Admin: 05/14/18 10:35 Dose: 5,000 units Hydralazine HCl (Apresoline) 100 mg PO TID [facility] Last Admin: 05/14/18 13:27 Dose: 100 mg Dextrose (Dextrose 5% In Water 1000 Ml) 1,000 mls @ 0 mls/hr IV .Q0M PRN; Protocol PRN Reason: Hypoglycemia Protocol Ferric Sodium Gluconate Complex 125 mg/ Sodium Chloride 110 mls @ 110 mls/hr IVPB DAILY [facility] Stop: 05/18/18 10:31 Last Admin: 05/14/18 10:38 Dose: 110 mls/hr Insulin Aspart (Novolog Mix 70/30 (70/30 Units/Ml)) 10 units SC ACBD [facility] Last Admin: 05/14/18 08:27 Dose: 10 units Isosorbide Mononitrate (Imdur) 60 mg PO DAILY [facility] Last Admin: 05/14/18 10:34 Dose: 60 mg Lactic Acid (Lac-Hydrin 12% Lotion (225 G)) 0 gm EXT BID [facility] Last Admin: 05/14/18 10:35 Dose: 1 applic Lactulose (Enulose) 20 gm PO [facility] Last Admin: 05/13/18 22:20 Dose: 20 gm Metolazone (Zaroxolyn) 5 mg PO DAILY [facility] Last Admin: 05/14/18 10:39 Dose: 5 mg Rosuvastatin Calcium (Crestor) 5 mg PO HS [facility] Last Admin: 05/13/18 22:21 Dose: 5 mg Tamsulosin HCl (Flomax) 0.4 mg PO DAILY [facility] Last Admin: 05/14/18 10:34 Dose: 0.4 mg Vitamin B Complex/Vit C/Folic Acid (Nephro-Lupillo) 1 tab PO 0800 [facility] Last Admin: 05/14/18 08:27 Dose: 1 tab - Labs Labs: 05/14/18 14:16 05/14/18 15:05 PT 12.0 SECONDS (9.7-12.2) 05/08/18 13:53 INR 1.1 05/08/18 13:53 APTT 32 SECONDS (21-34) 05/08/18 13:53 - Constitutional Appears: Well - Head Exam Head Exam: ATRAUMATIC, NORMAL INSPECTION, NORMOCEPHALIC - Eye Exam Eye Exam: EOMI, Normal appearance, PERRL Pupil Exam: NORMAL ACCOMODATION, PERRL - ENT Exam ENT Exam: Mucous Membranes Moist, Normal Exam - Neck Exam Neck Exam: Full ROM, Normal Inspection. absent: Lymphadenopathy - Respiratory Exam Respiratory Exam: Decreased Breath Sounds - Cardiovascular Exam Cardiovascular Exam: REGULAR RHYTHM, +S1, +S2 - GI/Abdominal Exam GI & Abdominal Exam: Soft, Diminished Bowel Sounds - Rectal Exam Rectal Exam: Deferred
--- NOTE | 2018-05-14 19:29 | CARD ---
APPROVED REPORT Date of service: 05/09/2018 EKG Measurement Heart [id number] [place] 182P [id number] <Conclusion> Normal sinus rhythm Cannot rule out Inferior infarct, age undetermined Abnormal ECG
[2018-05-15] MEDS: (Novolog Mix 70/30) Insulin Aspart/Insulin Aspar 100 units/ml SC SCH ×2 (07:24→18:51)
[2018-05-15 07:42] LABS: CALCIUM 8.4 mg/dl (8.6-10.4)
[2018-05-15] MEDS: EPOETIN ALFA 4,000 UNIT/ML ML Dialysis SC SCH (08:11)
[2018-05-15] MEDS: Multivitamin Vitamin B Complex (Nephro-Vite) Tab PO SCH (08:11)
[2018-05-15] MEDS: Ammonium Lactate 12% Lotion (225 g) EXT SCH ×2 (10:25→18:50)
[2018-05-15] MEDS: metOLazone 5 MG TAB PO SCH (10:25)
[2018-05-15] MEDS: Ferric Sodium Gluconat Complex 125 MG in Sodium Chloride 0.9% 100 ML IVPB SCH (10:29)
--- NOTE | 2018-05-15 16:01 | CP.PCM.PN ---
Subjective - Date & Time of Evaluation Date of Evaluation: 05/15/18 Time of Evaluation: 16:00 - Subjective Subjective: Nephrology Consultation Note: Assessment: Stable CHF exacerbation with fluid overload with uncontrolled severe HTN: now better Diabetic chronic Kidney Disease (E11.22) Hypertensive Chronic Kidney Disease (I12.9) Chronic Kidney Disease (N18.4) Stage 4 with 3 gram proteinuria (R80.9) ? due to DM/HTN/morbid obesity Anemia (D64.9) Plan repeat labs in AM No acute need for renal replacement therapy at this time. Hypertension control with meds as ordered. Maintain hemodynamics stable. Avoid hypotension. Patient on enalapril. increased hydralazine and added imdur Monitor Input/Output, daily weights and renal function with basic metabolic panel continue diuretics with lasix but changed to PO and metolazone Cardiology following continue with flomax added iron, MVI and epogen. PRBC as needed. Check urine analysis, spot protein/creatinine, albumin/creatinine ratio, bladder sonogram Check GN work up as C3, C4, TALIB, Anti dsDNA, HIV/Hep B and Hep C serology Anemia work up with TSAT/Ferritin/Vitamin B12/folate, serum protein electrophoresis with immunofixation, serum free light chain assay (Micco/Lambda) Check for 25-OH vitamin D, iPTH, phosphorus level. Secondary HTN work up with plasma renin/aldosterone Dose meds/antibiotics for reduced GFR. Avoid fleets enema/magnesium based laxatives. Avoid nephrotoxins/NSAIDs/ iodinated contrast (unless needed emergently) Glycemic control Further work up/management as per primary team save non-dominant arm from phlebotomy/IV lines for future AV access. Thanks for allowing me to participate in care of your patient. Will follow patient with you. Please call if any Qs. had d/w team Dr J Carlos Harrington Office: [phone] Chief Complaint; leg swelling Reason for consult: CKD 4 HPI: Pt is a 77 M with hx of diabetes Mellitus (5-7 years), hypertension (years) diastolic CHF, morbid obesity, CKD 4 with baseline cr 3.8-4.0 with 3 gram proteinuria, anemia presented with complaints of SOB and leg swelling and being managed for CHF exacerbation. Denies OTC/herbal meds or NSAIDs No recent iodinated contrast exposure. No obvious episodes of low BP. BP mostly high pt not aware about kidney disease in past. now he feels better. denies urine complaint but uncomfortable with andrew catheter and want it to be removed. ROS: Cardiovascular: No chest pain. Pulmonary: No shortness of breath now Gastrointestinal: denies abdominal pain No nausea. No vomiting. Genitourinary: No pain while urinating. Denies blood in urine. has urine incontinence All other negative except as mentioned in HPI Physical Examination: General Appearance: Comfortable, in no acute respiratory distress, co-operative . obese Vitals reviewed and noted as below Head; Atraumatic, normocephalic ENT: no ulcers no thrush. Tongue is midline. Oropharynx: no rash or ulcers. EYES: Pupils are equal, round and reactive to light accommodation. Eye muscles and extraocular movement intact. Sclera is anicteric. Neck; supple no lymphadenopathy, no thyromegaly or bruit Lungs: Normal respiratory rate/effort. Breath sounds bilateral clearer Heart: Normal rate. s1s2 normal. No rub or gallop. Extremities: no edema. No varicose veins. Neurological: Patient is alert, awake and oriented to person, place and time. No focal deficit. Strength bilateral appropriate and equal Skin: Warm and dry. Normal turgor. No rash. Palpitation: Normal elasticity for age Abdomen: Abdomen is soft/distended. Bowel sounds +. There is no abdominal tenderness, no guarding/rigidity no organomegaly Psych: lack insight and has normal affect/mood MSK: no joint tenderness or swelling. Digits and nails normal, no deformity : kidney or bladder not palpable. Labs/imaging reviewed. Past medical history, past surgical history, family history, social history, allergy reviewed and noted as below Family hx: no hx of CKD. Rest non-contributory 24 hr urine 3 gram, UA 2+ protein renal imaging unremarkable dCHF on echo Objective - Vital Signs/Intake and Output Vital Signs (last 24 hours): Temp Pulse Resp BP Pulse Ox 98.8 F 99 H 20 167/78 H 98 05/15/18 08:41 05/15/18 13:58 05/15/18 08:41 05/15/18 13:58 05/15/18 08:41 Intake and Output: 05/15/18 05/15/18 06:59 18:59 Intake Total 810 450 Output Total 100 Balance 710 450 - Medications Medications: Current Medications Aspirin (Aspirin) 325 mg PO DAILY [facility] Last Admin: 05/15/18 10:25 Dose: 325 mg Calcitriol (Rocaltrol) 0.25 mcg PO DAILY [facility] Last Admin: 05/15/18 10:25 Dose: 0.25 mcg Clopidogrel Bisulfate (Plavix) 75 mg PO DAILY [facility] Last Admin: 05/15/18 10:24 Dose: 75 mg Dextrose (Dextrose 50% Inj) 0 ml IV STAT PRN; Protocol PRN Reason: Hypoglycemia Protocol Last Admin: 05/15/18 07:04 Dose: 50 ml Dextrose (Glutose 15) 0 gm PO ONCE PRN; Protocol PRN Reason: Hypoglycemia Protocol Docusate Sodium (Colace) 100 mg PO TID [facility] Last Admin: 05/15/18 13:59 Dose: 100 mg Enalapril Maleate (Vasotec) 20 mg PO DAILY [facility] Last Admin: 05/15/18 10:25 Dose: 20 mg Epoetin Cristóbal (Procrit) 8,000 unit SC MWF [facility] Last Admin: 05/15/18 08:11 Dose: 8,000 unit Ergocalciferol (Drisdol 50,000 Intl Units Cap) 1 cap PO Q7D [facility] Last Admin: 05/12/18 10:41 Dose: 1 cap Furosemide (Lasix) 40 mg PO DAILY [facility] Last Admin: 05/15/18 10:24 Dose: 40 mg Glimepiride (Amaryl) 4 mg PO BID [facility] Last Admin: 05/15/18 10:21 Dose: Not Given Glucagon (Glucagen Diagnostic Kit) 0 mg IM STAT PRN; Protocol PRN Reason: Hypoglycemia Protocol Heparin Sodium (Porcine) (Heparin) 5,000 units SC Q12 [facility] Last Admin: 05/15/18 10:25 Dose: 5,000 units Hydralazine HCl (Apresoline) 100 mg PO TID [facility] Last Admin: 05/15/18 13:59 Dose: 100 mg Ferric Sodium Gluconate Complex 125 mg/ Sodium Chloride 110 mls @ 110 mls/hr IVPB DAILY [facility] Stop: 05/18/18 10:31 Last Admin: 05/15/18 10:29 Dose: 110 mls/hr Insulin Aspart (Novolog Mix 70/30 (70/30 Units/Ml)) 10 units SC ACBD [facility] Last Admin: 05/15/18 07:24 Dose: Not Given Isosorbide Mononitrate (Imdur) 60 mg PO DAILY [facility] Last Admin: 05/15/18 10:24 Dose: 60 mg Lactic Acid (Lac-Hydrin 12% Lotion (225 G)) 0 gm EXT BID [facility] Last Admin: 05/15/18 10:25 Dose: 1 applic Lactulose (Enulose) 20 gm PO HS [facility] Last Admin: 05/14/18 22:28 Dose: 20 gm Metolazone (Zaroxolyn) 5 mg PO DAILY [facility] Last Admin: 05/15/18 10:25 Dose: 5 mg Rosuvastatin Calcium (Crestor) 5 mg PO HS [facility] Last Admin: 05/14/18 22:28 Dose: 5 mg Tamsulosin HCl (Flomax) 0.4 mg PO DAILY [facility] Last Admin: 05/15/18 10:24 Dose: 0.4 mg Vitamin B Complex/Vit C/Folic Acid (Nephro-Lupillo) 1 tab PO 0800 [facility] Last Admin: 05/15/18 08:11 Dose: 1 tab - Labs Labs: 05/14/18 14:16 05/15/18 07:12 PT 12.0 SECONDS (9.7-12.2) 05/08/18 13:53 INR 1.1 05/08/18 13:53 APTT 32 SECONDS (21-34) 05/08/18 13:53
--- NOTE | 2018-05-15 18:50 | CP.PCM.PN ---
Subjective - Date & Time of Evaluation Date of Evaluation: 05/15/18 Time of Evaluation: 18:00 - Subjective Subjective: no new complainst. no dyspnea Objective - Vital Signs/Intake and Output Vital Signs (last 24 hours): Temp Pulse Resp BP Pulse Ox 97.3 F L 99 H 20 137/69 96 05/15/18 15:33 05/15/18 15:33 05/15/18 15:33 05/15/18 15:33 05/15/18 15:33 Intake and Output: 05/15/18 05/15/18 06:59 18:59 Intake Total 810 450 Output Total 100 Balance 710 450 - Medications Medications: Current Medications Aspirin (Aspirin) 325 mg PO DAILY [facility] Last Admin: 05/15/18 10:25 Dose: 325 mg Calcitriol (Rocaltrol) 0.25 mcg PO DAILY [facility] Last Admin: 05/15/18 10:25 Dose: 0.25 mcg Clopidogrel Bisulfate (Plavix) 75 mg PO DAILY [facility] Last Admin: 05/15/18 10:24 Dose: 75 mg Dextrose (Dextrose 50% Inj) 0 ml IV STAT PRN; Protocol PRN Reason: Hypoglycemia Protocol Last Admin: 05/15/18 07:04 Dose: 50 ml Dextrose (Glutose 15) 0 gm PO ONCE PRN; Protocol PRN Reason: Hypoglycemia Protocol Docusate Sodium (Colace) 100 mg PO TID [facility] Last Admin: 05/15/18 13:59 Dose: 100 mg Enalapril Maleate (Vasotec) 20 mg PO DAILY [facility] Last Admin: 05/15/18 10:25 Dose: 20 mg Epoetin Cristóbal (Procrit) 8,000 unit SC MWF [facility] Last Admin: 05/15/18 08:11 Dose: 8,000 unit Ergocalciferol (Drisdol 50,000 Intl Units Cap) 1 cap PO Q7D [facility] Last Admin: 05/12/18 10:41 Dose: 1 cap Furosemide (Lasix) 40 mg PO DAILY [facility] Last Admin: 05/15/18 10:24 Dose: 40 mg Glimepiride (Amaryl) 4 mg PO BID [facility] Last Admin: 05/15/18 10:21 Dose: Not Given Glucagon (Glucagen Diagnostic Kit) 0 mg IM STAT PRN; Protocol PRN Reason: Hypoglycemia Protocol Heparin Sodium (Porcine) (Heparin) 5,000 units SC Q12 [facility] Last Admin: 05/15/18 10:25 Dose: 5,000 units Hydralazine HCl (Apresoline) 100 mg PO TID [facility] Last Admin: 05/15/18 13:59 Dose: 100 mg Ferric Sodium Gluconate Complex 125 mg/ Sodium Chloride 110 mls @ 110 mls/hr IVPB DAILY [facility] Stop: 05/18/18 10:31 Last Admin: 05/15/18 10:29 Dose: 110 mls/hr Insulin Aspart (Novolog Mix 70/30 (70/30 Units/Ml)) 10 units SC ACBD [facility] Last Admin: 05/15/18 07:24 Dose: Not Given Isosorbide Mononitrate (Imdur) 60 mg PO DAILY [facility] Last Admin: 05/15/18 10:24 Dose: 60 mg Lactic Acid (Lac-Hydrin 12% Lotion (225 G)) 0 gm EXT BID [facility] Last Admin: 05/15/18 10:25 Dose: 1 applic Lactulose (Enulose) 20 gm PO HS [facility] Last Admin: 05/14/18 22:28 Dose: 20 gm Metolazone (Zaroxolyn) 5 mg PO DAILY [facility] Last Admin: 05/15/18 10:25 Dose: 5 mg Rosuvastatin Calcium (Crestor) 5 mg PO HS [facility] Last Admin: 05/14/18 22:28 Dose: 5 mg Tamsulosin HCl (Flomax) 0.4 mg PO DAILY [facility] Last Admin: 05/15/18 10:24 Dose: 0.4 mg Vitamin B Complex/Vit C/Folic Acid (Nephro-Lupillo) 1 tab PO 0800 [facility] Last Admin: 05/15/18 08:11 Dose: 1 tab - Labs Labs: 05/14/18 14:16 05/15/18 07:12 PT 12.0 SECONDS (9.7-12.2) 05/08/18 13:53 INR 1.1 05/08/18 13:53 APTT 32 SECONDS (21-34) 05/08/18 13:53 - Constitutional Appears: Non-toxic - Head Exam Head Exam: NORMAL INSPECTION - Eye Exam Eye Exam: Normal appearance - ENT Exam ENT Exam: Mucous Membranes Moist - Neck Exam Neck Exam: Full ROM - Respiratory Exam Respiratory Exam: NORMAL BREATHING PATTERN - Cardiovascular Exam Cardiovascular Exam: REGULAR RHYTHM - GI/Abdominal Exam GI & Abdominal Exam: Normal Bowel Sounds - Rectal Exam Rectal Exam: Deferred - Extremities Exam Extremities Exam: Normal Inspection. absent: Pedal Edema - Back Exam Back Exam: NORMAL INSPECTION - Neurological Exam Neurological Exam: Alert, Awake - Psychiatric Exam Psychiatric exam: Normal Affect - Skin Skin Exam: Normal Color Assessment and Plan (1) HTN (hypertension) Assessment & Plan: blood pressure control Status: Acute (2) CAD (coronary artery disease) Assessment & Plan: stent LAD. medical therapy Status: Acute (3) Acute on chronic congestive heart failure with left ventricular diastolic dysfunction Assessment & Plan: improving Status: Acute (4) Mobitz (type) I (Wenckebach's) atrioventricular block Status: Acute
--- NOTE | 2018-05-15 18:54 | CP.PCM.PN ---
Subjective - Date & Time of Evaluation Date of Evaluation: 05/15/18 Time of Evaluation: 10:15 - Subjective Subjective: clinically same Objective - Vital Signs/Intake and Output Vital Signs (last 24 hours): Temp Pulse Resp BP Pulse Ox 97.3 F L 99 H 20 137/69 96 05/15/18 15:33 05/15/18 15:33 05/15/18 15:33 05/15/18 15:33 05/15/18 15:33 Intake and Output: 05/15/18 05/15/18 06:59 18:59 Intake Total 810 450 Output Total 100 Balance 710 450 - Medications Medications: Current Medications Aspirin (Aspirin) 325 mg PO DAILY [facility] Last Admin: 05/15/18 10:25 Dose: 325 mg Calcitriol (Rocaltrol) 0.25 mcg PO DAILY [facility] Last Admin: 05/15/18 10:25 Dose: 0.25 mcg Clopidogrel Bisulfate (Plavix) 75 mg PO DAILY [facility] Last Admin: 05/15/18 10:24 Dose: 75 mg Dextrose (Dextrose 50% Inj) 0 ml IV STAT PRN; Protocol PRN Reason: Hypoglycemia Protocol Last Admin: 05/15/18 07:04 Dose: 50 ml Dextrose (Glutose 15) 0 gm PO ONCE PRN; Protocol PRN Reason: Hypoglycemia Protocol Docusate Sodium (Colace) 100 mg PO TID [facility] Last Admin: 05/15/18 18:50 Dose: 100 mg Enalapril Maleate (Vasotec) 20 mg PO DAILY [facility] Last Admin: 05/15/18 10:25 Dose: 20 mg Epoetin Cristóbal (Procrit) 8,000 unit SC MWF [facility] Last Admin: 05/15/18 08:11 Dose: 8,000 unit Ergocalciferol (Drisdol 50,000 Intl Units Cap) 1 cap PO Q7D [facility] Last Admin: 05/12/18 10:41 Dose: 1 cap Furosemide (Lasix) 40 mg PO DAILY [facility] Last Admin: 05/15/18 10:24 Dose: 40 mg Glimepiride (Amaryl) 4 mg PO BID [facility] Last Admin: 05/15/18 18:50 Dose: 4 mg Glucagon (Glucagen Diagnostic Kit) 0 mg IM STAT PRN; Protocol PRN Reason: Hypoglycemia Protocol Heparin Sodium (Porcine) (Heparin) 5,000 units SC Q12 [facility] Last Admin: 05/15/18 10:25 Dose: 5,000 units Hydralazine HCl (Apresoline) 100 mg PO TID [facility] Last Admin: 05/15/18 18:50 Dose: 100 mg Ferric Sodium Gluconate Complex 125 mg/ Sodium Chloride 110 mls @ 110 mls/hr IVPB DAILY [facility] Stop: 05/18/18 10:31 Last Admin: 05/15/18 10:29 Dose: 110 mls/hr Insulin Aspart (Novolog Mix 70/30 (70/30 Units/Ml)) 10 units SC ACBD [facility] Last Admin: 05/15/18 18:51 Dose: 10 units Isosorbide Mononitrate (Imdur) 60 mg PO DAILY [facility] Last Admin: 05/15/18 10:24 Dose: 60 mg Lactic Acid (Lac-Hydrin 12% Lotion (225 G)) 0 gm EXT BID [facility] Last Admin: 05/15/18 18:50 Dose: 1 applic Lactulose (Enulose) 20 gm PO HS [facility] Last Admin: 05/14/18 22:28 Dose: 20 gm Metolazone (Zaroxolyn) 5 mg PO DAILY [facility] Last Admin: 05/15/18 10:25 Dose: 5 mg Rosuvastatin Calcium (Crestor) 5 mg PO HS [facility] Last Admin: 05/14/18 22:28 Dose: 5 mg Tamsulosin HCl (Flomax) 0.4 mg PO DAILY [facility] Last Admin: 05/15/18 10:24 Dose: 0.4 mg Vitamin B Complex/Vit C/Folic Acid (Nephro-Lupillo) 1 tab PO 0800 [facility] Last Admin: 05/15/18 08:11 Dose: 1 tab - Labs Labs: 05/14/18 14:16 05/15/18 07:12 PT 12.0 SECONDS (9.7-12.2) 05/08/18 13:53 INR 1.1 05/08/18 13:53 APTT 32 SECONDS (21-34) 05/08/18 13:53 - Constitutional Appears: Well - Head Exam Head Exam: ATRAUMATIC, NORMAL INSPECTION, NORMOCEPHALIC - Eye Exam Eye Exam: EOMI, Normal appearance, PERRL Pupil Exam: NORMAL ACCOMODATION, PERRL - ENT Exam ENT Exam: Mucous Membranes Moist, Normal Exam - Neck Exam Neck Exam: Full ROM, Normal Inspection. absent: Lymphadenopathy - Respiratory Exam Respiratory Exam: Decreased Breath Sounds - Cardiovascular Exam Cardiovascular Exam: REGULAR RHYTHM, +S1, +S2 - GI/Abdominal Exam GI & Abdominal Exam: Soft, Diminished Bowel Sounds - Rectal Exam Rectal Exam: Deferred
[2018-05-16 08:22] VITALS: PULSE 88; TEMP 98.3; O2SAT 98
[2018-05-16] MEDS: Multivitamin Vitamin B Complex (Nephro-Vite) Tab PO SCH (09:01)
[2018-05-16] MEDS: (Novolog Mix 70/30) Insulin Aspart/Insulin Aspar 100 units/ml SC SCH (09:04)
[2018-05-16] MEDS: metOLazone 5 MG TAB PO SCH (10:53)
[2018-05-16 10:54] VITALS: BP 147/69
[2018-05-16] MEDS: Ammonium Lactate 12% Lotion (225 g) EXT SCH (10:55)
[2018-05-16 11:21] LABS: CALCIUM 8.5 mg/dl (8.6-10.4)
[2018-05-16] MEDS: Ferric Sodium Gluconat Complex 125 MG in Sodium Chloride 0.9% 100 ML IVPB SCH (11:50)
--- NOTE | 2018-05-16 12:17 | CP.PCM.PN ---
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 Objective - Vital Signs/Intake and Output Vital Signs (last 24 hours): Temp Pulse Resp BP Pulse Ox 98.3 F 88 20 147/69 98 05/16/18 08:19 05/16/18 08:19 05/16/18 08:19 05/16/18 10:53 05/16/18 08:19 Intake and Output: 05/16/18 05/16/18 06:59 18:59 Intake Total 120 Balance 120 - Medications Medications: Current Medications Aspirin (Aspirin) 325 mg PO DAILY [facility] Last Admin: 05/16/18 10:52 Dose: 325 mg Calcitriol (Rocaltrol) 0.25 mcg PO DAILY [facility] Last Admin: 05/16/18 10:52 Dose: 0.25 mcg Clopidogrel Bisulfate (Plavix) 75 mg PO DAILY [facility] Last Admin: 05/16/18 10:53 Dose: 75 mg Dextrose (Dextrose 50% Inj) 0 ml IV STAT PRN; Protocol PRN Reason: Hypoglycemia Protocol Last Admin: 05/15/18 07:04 Dose: 50 ml Dextrose (Glutose 15) 0 gm PO ONCE PRN; Protocol PRN Reason: Hypoglycemia Protocol Docusate Sodium (Colace) 100 mg PO TID [facility] Last Admin: 05/16/18 10:53 Dose: 100 mg Enalapril Maleate (Vasotec) 20 mg PO DAILY [facility] Last Admin: 05/16/18 10:53 Dose: 20 mg Epoetin Cristóbal (Procrit) 8,000 unit SC MWF [facility] Last Admin: 05/15/18 08:11 Dose: 8,000 unit Ergocalciferol (Drisdol 50,000 Intl Units Cap) 1 cap PO Q7D [facility] Last Admin: 05/12/18 10:41 Dose: 1 cap Furosemide (Lasix) 40 mg PO DAILY [facility] Last Admin: 05/16/18 10:53 Dose: 40 mg Glimepiride (Amaryl) 4 mg PO BID [facility] Last Admin: 05/16/18 10:53 Dose: 4 mg Glucagon (Glucagen Diagnostic Kit) 0 mg IM STAT PRN; Protocol PRN Reason: Hypoglycemia Protocol Hydralazine HCl (Apresoline) 100 mg PO TID [facility] Last Admin: 05/16/18 10:52 Dose: 100 mg Ferric Sodium Gluconate Complex 125 mg/ Sodium Chloride 110 mls @ 110 mls/hr IVPB DAILY [facility] Stop: 05/18/18 10:31 Last Admin: 05/16/18 11:50 Dose: 110 mls/hr Insulin Aspart (Novolog Mix 70/30 (70/30 Units/Ml)) 10 units SC ACBD [facility] Last Admin: 05/16/18 09:04 Dose: 10 units Isosorbide Mononitrate (Imdur) 60 mg PO DAILY [facility] Last Admin: 05/16/18 10:52 Dose: 60 mg Lactic Acid (Lac-Hydrin 12% Lotion (225 G)) 0 gm EXT BID [facility] Last Admin: 05/16/18 10:55 Dose: 1 applic Lactulose (Enulose) 20 gm PO HS [facility] Last Admin: 05/15/18 22:27 Dose: 20 gm Metolazone (Zaroxolyn) 5 mg PO DAILY [facility] Last Admin: 05/16/18 10:53 Dose: 5 mg Rosuvastatin Calcium (Crestor) 5 mg PO HS [facility] Last Admin: 05/15/18 22:27 Dose: 5 mg Tamsulosin HCl (Flomax) 0.4 mg PO DAILY [facility] Last Admin: 05/16/18 10:52 Dose: 0.4 mg Vitamin B Complex/Vit C/Folic Acid (Nephro-Lupillo) 1 tab PO 0800 [facility] Last Admin: 05/16/18 09:01 Dose: 1 tab - Labs Labs: 05/14/18 14:16 05/16/18 08:44 PT 12.0 SECONDS (9.7-12.2) 05/08/18 13:53 INR 1.1 05/08/18 13:53 APTT 32 SECONDS (21-34) 05/08/18 13:53 Assessment and Plan - Assessment and Plan (Free Text) Assessment: a/p 77 year old male with PMHx of HTN, CHF, and diabetes ADMITTED WITH for short ness of breath/exc. CHF and CRF and lower extremity edema pateint clinically improved with diuretics Dr. rogers cardiology consult and Dr. Harrington nephrology consult Patient seen today with Dr. Oconnell , and cleared patient for discharge home today and f//u with Dr. Calix office next week VNS service arranged for BMP q 3 days to monitor kidney function an dhome PT and home care Discharge plan discussed with patient and at bed eladio e
--- NOTE | 2018-05-16 12:17 | PCM.HF ---
Heart Failure Core Measure - Heart Failure Ejection Fraction: 40 % or Greater WILL Inhibitor Prescribed: Yes Beta-Roxane Prescribed: Metoprolol Succinate Angiotensin II Receptor Roxane Prescribed: No Contraindication/Reason for not providing: on will AnticoagulationTherapy for Atrial Fibrillation/Atrialflutter: No Contraindication/Reason for not providing: no hx of afib Aldosterone Antagonist Prescribed: No Contraindication/Reason for not providing: ARf Hydralazine Nitrate Prescribed: Yes Implantable Cardioverter Defibrillator Therapy: No Contraindication/Reason for not providing: ef>45 Cardiac Resynchronization Therapy Prescribed: No Contraindication/Reason for not providing: ef.>45 - Follow up Will be discharged to: Home Follow Up Date (must be within 7 days from discharge): 05/20/18 Follow Up Time: 16:00
--- NOTE | 2018-05-16 15:08 | CP.PCM.PN ---
Subjective - Date & Time of Evaluation Date of Evaluation: 05/16/18 Time of Evaluation: 11:00 - Subjective Subjective: Nephrology Consultation Note: Assessment: Stable CHF exacerbation with fluid overload with uncontrolled severe HTN: now better Diabetic chronic Kidney Disease (E11.22) Hypertensive Chronic Kidney Disease (I12.9) Chronic Kidney Disease (N18.4) Stage 4 with 3 gram proteinuria (R80.9) ? due to DM/HTN/morbid obesity Anemia (D64.9) Plan repeat labs in AM No acute need for renal replacement therapy at this time. Hypertension control with meds as ordered. Maintain hemodynamics stable. Avoid hypotension. Patient on enalapril. increased hydralazine and added imdur Monitor Input/Output, daily weights and renal function with basic metabolic panel continue diuretics with lasix but changed to PO and metolazone Cardiology following continue with flomax added iron, MVI and epogen. PRBC as needed. Check urine analysis, spot protein/creatinine, albumin/creatinine ratio, bladder sonogram Check GN work up as C3, C4, TALIB, Anti dsDNA, HIV/Hep B and Hep C serology Anemia work up with TSAT/Ferritin/Vitamin B12/folate, serum protein electrophoresis with immunofixation, serum free light chain assay (Rowe/Lambda) Check for 25-OH vitamin D, iPTH, phosphorus level. Secondary HTN work up with plasma renin/aldosterone Dose meds/antibiotics for reduced GFR. Avoid fleets enema/magnesium based laxatives. Avoid nephrotoxins/NSAIDs/ iodinated contrast (unless needed emergently) Glycemic control Further work up/management as per primary team save non-dominant arm from phlebotomy/IV lines for future AV access. Thanks for allowing me to participate in care of your patient. Will follow patient with you. Please call if any Qs. had d/w team Dr J Carlos Harrington Office: [phone] Chief Complaint; leg swelling Reason for consult: CKD 4 HPI: Pt is a 77 M with hx of diabetes Mellitus (5-7 years), hypertension (years) diastolic CHF, morbid obesity, CKD 4 with baseline cr 3.8-4.0 with 3 gram proteinuria, anemia presented with complaints of SOB and leg swelling and being managed for CHF exacerbation. Denies OTC/herbal meds or NSAIDs No recent iodinated contrast exposure. No obvious episodes of low BP. BP mostly high pt not aware about kidney disease in past. now he feels better. denies urine complaint but uncomfortable with andrew catheter and want it to be removed. ROS: Cardiovascular: No chest pain. Pulmonary: No shortness of breath now Gastrointestinal: denies abdominal pain No nausea. No vomiting. Genitourinary: No pain while urinating. Denies blood in urine. has urine incontinence All other negative except as mentioned in HPI Physical Examination: General Appearance: Comfortable, in no acute respiratory distress, co-operative . obese Vitals reviewed and noted as below Head; Atraumatic, normocephalic ENT: no ulcers no thrush. Tongue is midline. Oropharynx: no rash or ulcers. EYES: Pupils are equal, round and reactive to light accommodation. Eye muscles and extraocular movement intact. Sclera is anicteric. Neck; supple no lymphadenopathy, no thyromegaly or bruit Lungs: Normal respiratory rate/effort. Breath sounds bilateral clearer Heart: Normal rate. s1s2 normal. No rub or gallop. Extremities: no edema. No varicose veins. Neurological: Patient is alert, awake and oriented to person, place and time. No focal deficit. Strength bilateral appropriate and equal Skin: Warm and dry. Normal turgor. No rash. Palpitation: Normal elasticity for age Abdomen: Abdomen is soft/distended. Bowel sounds +. There is no abdominal tenderness, no guarding/rigidity no organomegaly Psych: lack insight and has normal affect/mood MSK: no joint tenderness or swelling. Digits and nails normal, no deformity : kidney or bladder not palpable. Labs/imaging reviewed. Past medical history, past surgical history, family history, social history, allergy reviewed and noted as below Family hx: no hx of CKD. Rest non-contributory 24 hr urine 3 gram, UA 2+ protein renal imaging unremarkable dCHF on echo Objective - Vital Signs/Intake and Output Vital Signs (last 24 hours): Temp Pulse Resp BP Pulse Ox 98.3 F 88 20 147/69 98 05/16/18 08:19 05/16/18 13:49 05/16/18 08:19 05/16/18 10:53 05/16/18 08:19 Intake and Output: 05/16/18 05/16/18 06:59 18:59 Intake Total 120 110 Balance 120 110 - Labs Labs: 05/14/18 14:16 05/16/18 08:44 PT 12.0 SECONDS (9.7-12.2) 05/08/18 13:53 INR 1.1 05/08/18 13:53 APTT 32 SECONDS (21-34) 05/08/18 13:53
[2018-05-17 01:41] LABS: ALDO/PRA RATIO 2.9 Ratio (0.9-28.9)
== END 2018-05-16 14:08 | disposition home or self-care (01) | DRG 291 ==
LOC: C.ER 12:52 → C.9E 16:03 → C.6T 05-09 09:04 → UNDODISIN 05-11 18:45
PROVIDERS: ADMIT Internal Medicine Nephrology; ATTEND Internal Medicine Nephrology
PROC: 5A09357 Assistance with Respiratory Ventilation, Less than 24 Consecutive Hours, Continuous Positive Airway Pressure (ICD-10-PCS; principal; 2018-05-08)
DX: I13.0 Hypertensive heart and chronic kidney disease with heart failure and stage 1 through stage 4 chronic kidney disease, or unspecified chronic kidney disease (principal); I50.43 Acute on chronic combined systolic (congestive) and diastolic (congestive) heart failure; N18.4 Chronic kidney disease, stage 4 (severe); I44.1 Atrioventricular block, second degree; E11.22 Type 2 diabetes mellitus with diabetic chronic kidney disease; I25.10 Atherosclerotic heart disease of native coronary artery without angina pectoris; D64.9 Anemia, unspecified; H40.9 Unspecified glaucoma; E78.00 Pure hypercholesterolemia, unspecified; E66.01 Morbid (severe) obesity due to excess calories; Z85.46 Personal history of malignant neoplasm of prostate; Z86.73 Personal history of transient ischemic attack (TIA), and cerebral infarction without residual deficits; Z87.01 Personal history of pneumonia (recurrent); Z98.42 Cataract extraction status, left eye